=== PATIENT | female | born 1960 | race Caucasian/White ===

== ENCOUNTER 2019-07-29 11:00 | Outpatient (RCR) | payer OTHER, SELFPAY ==
--- NOTE | 2019-06-08 11:28 | PTOPEVAL ---
PHYSICAL THERAPY EVALUATION AND PLAN OF CARE Thank you for referring this patient to [facility]. Mer will be seen for skilled PT following left TKA 2x/week for 4-8weeks. Please review, sign, date and return this plan of care SYLVAIN. I agree with and certify that the following plan of care is medically necessary. Referring Physician Date Evaluation Outpatient Past Medical History Musculoskeletal History Hx Arthritis Yes Hx Fibromyalgia Yes Hx Joint Replacement Yes: R TKA Evaluation Information Problem Diagnosis left TKA Onset 06/01/2019 Subjective Information Mer is 1 week s/p left TKA Query Text:As Reported By Patient/ and reports she is doing well. Family Feels as though this knee is moving better than the last total knee on right Prior Level of Function Home Setting Home Type House,Single Level Environmental Barriers Stairs, None Pain Assessment Timing of Pain Assessment Timing of Pain Assessment Assessment Pain Scale Pain Scale Used Numeric (1 - 10) Self Report Pain Assessment Left Knee(s) Reported Pain Level 4 Pain Description Aching,Incisional Pain Frequency Acute,Intermittent Current Pain Intensity 4 Lowest Pain Intensity 2 Greatest Pain Intensity 6 Pain Aggravating Factors Prolonged Position,Weight Bearing/Standing Knee Range of Motion Left Knee Flexion Range of Motion - Active 92 Knee Extension Range of Motion - Active 0 Query Text: Hip Strength Left Hip Flexion Strength 4+ Good + Hip Extension Strength 4 Good Hip Abduction Strength 4 Good Knee Strength Left Knee Flexion Strength 4 Good Knee Extension Strength 4 Good Gait Assessment Gait Assessment Ambulation Assistive Devices Walker, Wheeled Weight Bearing Status - Left As Tolerated Weight Bearing Status - Right Full Maintains Weight Bearing Status Yes Ambulation Distance 50 and in/out of clinic Query Text:(Feet) Ambulation Speed (feet/second) 2.1 Ambulation Destination In Gym Gait Pattern Assessment Other Gait Observations limited left hip extension during gait Stair Climbing Assessment Stair Climbing Assistive Devices Railings Weight Bearing Status - Left As Tolerated Weight Bearing Status - Right Full Maintains Weight Bearing Status Yes Number of Steps Climbed (Steps) 4 Number of Repetitions (Repetitions) 1 Technique Single Steps Stair Climbing Direction Both Up and Down Stair Climbing Ability
--- NOTE | 2019-06-24 14:35 | PCPTNOTE ---
Patient called & cancelled scheduled appointment this date due to no transportation.
--- NOTE | 2019-07-06 10:08 | PCPTNOTE ---
Patient called & re-scheduled appointment this date due to self-quarantine for COVID-19. She re-scheduled for 07/29/2019.
--- NOTE | 2019-07-29 11:32 | PTOPEVAL ---
PHYSICAL THERAPY DISCHARGE REPORT Thank you for referring Mer Green to [facility]. Please review, sign, date and return this plan of care SYLVAIN. I agree with and certify that the following plan of care is medically necessary. Referring Physician Date Discharge Outpatient Past Medical History Musculoskeletal History Hx Arthritis Yes Hx Fibromyalgia Yes Hx Joint Replacement Yes: R TKA Evaluation Information Problem Diagnosis left TKA Onset 06/01/2019 Subjective Information Mer is 2months s/p left TKA. Query Text:As Reported By Patient/ Reports that the left knee is Family doing very well with some soreness in the knee after working in the yard. States that her right knee is more sore than the left. She has a plan to return to participating in recreational exercise programs. Pain Assessment Timing of Pain Assessment Timing of Pain Assessment Pre-Treatment Self Report Self Report Pain Level 0 Pain Score Pain Score 0: Self Report Lower Extremity Range of Motion Knee Range of Motion Left Knee Flexion Range of Motion - Active 109 Knee Extension Range of Motion - Active 0 Query Text: Lower Extremity Muscle Strength Testing Hip Strength Left Hip Flexion Strength 5 Normal Hip Extension Strength 4+ Good + Hip Abduction Strength 4+ Good + Knee Strength Left Knee Flexion Strength 5 Normal Knee Extension Strength 5 Normal Gait Assessment Ambulation Assistive Devices None Ambulation Distance throughout home and community Query Text:(Feet) Ambulation Ability Independent Gait Pattern Assessment Gait Pattern No Deviations/Normal Stair Climbing Assessment Stair Climbing Assistive Devices None Number of Steps Climbed (Steps) 4 Number of Repetitions (Repetitions) 3 Technique Alternating Steps Stair Climbing Direction Both Up and Down Stair Climbing Ability Independent PT Clinical Summary Mer participated in 7 visits of physical therapy. She took some time off from PT due to COVID-19 precautions but she continued her exercises as activities at home and is doing very well at this time. Her strength is WFL and her left knee ROM is WFL. I
== END 2019-08-24 08:41 | disposition home or self-care (01) ==
LOC: ANHPT 11:00
PROVIDERS: PCP Nurse Practitioner Adult Health
DX: Z47.89 Encounter for other orthopedic aftercare (principal)
CPT/HCPCS: 97110; 97161

== ENCOUNTER 2019-09-17 16:02 | Outpatient (CLI) | payer OTHER, SELFPAY ==
--- NOTE | ~2019-09-17 | XR_ITS ---
XR lumbar spine 2-3V 09/17/2019 17:03 Indication: Lumbar radiculopathy. Procedure: 3 views of the lumbar spine Comparison: 02/04/2018 Findings: There is disc narrowing and endplate degenerative change at multiple levels of the lower th oracic and upper lumbar spine extending inferiorly to the L2-3 level. There is fusion at L3-S1. There are laminectomy changes at these levels. There is lateral bone graft mass at these levels. Hardware appears to be intact. There are cholecystectomy clips. There is levoscoliosis. Impression: 1: Stable lumbar spine appearance compared with 02/04/2018. Reviewed, dictated and finalized at location A. Impression: 1: Stable lumbar spine appearance compared with 02/04/2018.
[2019-09-17 16:34] LABS: Basophils Absolute Auto 0.1 K/mm3 (0.0-0.1); Basophils Percent Auto 0.8 % (0.2-1.2); Eosinophils Absolute Auto 0.3 K/mm3 (0-0.3); Eosinophils Percent Auto 3.9 % (0-4.4); Hematocrit 38.8 % (37.0-47.0); Hemoglobin 12.1 g/dL (12.0-15.0); Immature Granulocyte Absolute 0.01 K/mm3 (0.00-0.031); Immature Granulocyte Percent A 0.2 % (0-0.5); Lymphocytes Absolute Auto 2.38 K/mm3 (0.9-3.2); Lymphocytes Percent Auto 37.2 % (18.3-44.2); Mean Corpuscular HGB Conc 31.2 g/dl (32-36); Mean Corpuscular Volume 96.3 fl (80-100); Mean Platelet Volume 9.4 fl (7.4-10.4); Monocytes Absolute Auto 0.4 K/mm3 (0.1-0.6); Monocytes Percent Auto 5.9 % (2.6-8.5); Neutrophils Absolute Auto 3.3 K/mm3 (1.3-6.7); Platelet Count Result 326 k/mm3 (150-375); Red Blood Count 4.03 M/mm3 (4.2-5.4); Red Cell Distribution Width 12.8 % (11.5-14.5); White Blood Count 6.4 K/mm3 (4.5-10.0)
[2019-09-17 16:41] LABS: Blood Urea Nitrogen 34 mg/dL (7-17); Calcium 9.3 mg/dL (8.4-10.2); Carbon Dioxide 24 mmol/L (22-30); Chloride 105 mmol/L (98-107); Cholesterol 261 mg/dL (0-200); Estimated Glomerular Filt Rate 46; Glucose 91 mg/dL (65-105); HDL Direct 51 mg/dL; Potassium 4.5 mmol/L (3.4-5.0); Sodium 138 mmol/L (137-145); Triglycerides 209 mg/dL (<150)
[2019-09-17 16:44] LABS: Hemoglobin A1C 6.2 % (<5.7)
[2019-09-17 16:52] LABS: LDL Cholesterol Direct 159 mg/dL
[2019-09-17 17:26] LABS: Iron 92 ug/dL (37-170)
[2019-09-17 17:34] LABS: Percent Iron Saturation 19 % (20-50)
[2019-09-17 17:37] LABS: Vitamin D 25 Hydroxy 23.1 ng/mL
[2019-09-17 17:49] LABS: Folic Acid 11.3 ng/mL (2.76->20); Vitamin B12 > 1000.0 pg/mL (239-931)
[2019-09-17 17:54] LABS: Creatinine Urine 327.3 mg/dL
[2019-09-17 18:00] LABS: MALB Creatinine Ratio 7.6 mg/g (0-30); Microalbumin Urine Random 24.8 mg/L (0-16.7)
== END 2019-09-17 16:03 | disposition home or self-care (01) ==
PROVIDERS: PCP Nurse Practitioner Adult Health; Visit Provider Nurse Practitioner Adult Health
DX: R73.9 Hyperglycemia, unspecified (principal); D64.9 Anemia, unspecified; M85.80 Other specified disorders of bone density and structure, unspecified site; M54.16 Radiculopathy, lumbar region
CPT/HCPCS: 36415; 72100; 80048; 80061; 82043; 82306; 82607; 82728; 82746; 83036; 83540; 83550; 85025

== ENCOUNTER 2019-10-04 17:37 | Observation (INO) | payer OTHER, SELFPAY ==
--- NOTE | ~2019-10-04 | NM_ITS ---
EXAMINATION: NM pulmonary perfusion DATE: 10/04/2019 20:39 INDICATION: Neck pain. TECHNIQUE: 5.14 mCi Tc-99m MAA was administered intravenously for perfusion images. Scintigraphic im ages of the chest were obtained. COMPARISON: Chest 2 views 10/04/2019 FINDINGS: Perfusion images show no defects. ] IMPRESSION: 1. Pulmonary embolism absent (normal or very low probability). Reviewed, dictated and finalized at location A.
--- NOTE | ~2019-10-04 | XR_ITS ---
EXAMINATION: XR chest 2V DATE: 10/04/2019 18:39 INDICATION: Weakness. Headache. TECHNIQUE: Frontal and lateral views of the chest were obtained. COMPARISON: Chest 2 views 05/14/2018, CT abdomen and pelvis 05/14/2018 FINDINGS: There is mild atelectasis at the lung bases. A calcified left lung nodule and calcified lef t hilar lymph nodes are consistent with old granulomatous disease. No pleural effusion or pneumothora x. The heart size is normal. Surgical clips in the right upper quadrant are likely from cholecystecto my. There are changes of posterior fusion procedure in lumbar spine. IMPRESSION: 1. Mild atelectasis at the lung bases. Reviewed, dictated and finalized at location A.
--- NOTE | ~2019-10-04 | US_ITS ---
EXAMINATION: US venous doppler [facility] DATE: 10/05/2019 12:57 INDICATION: Weakness and headache, elevated d-dimer TECHNIQUE: Vieyra scale images without and with compression and Doppler images of the bilateral lower e xtremity veins were obtained. COMPARISON: None FINDINGS: There is thrombosis in a right posterior tibial vein. The right common femoral vein, profunda femoral vein, femoral vein, popliteal vein, peroneal trunk, and greater saphenous vein are patent. The left common femoral vein, profunda femoral vein, femoral vein, popliteal vein, peroneal trunk, po sterior tibial veins, and greater saphenous vein are patent. IMPRESSION: 1. Deep venous thrombosis in a right posterior tibial vein. This finding was discussed with the patie nt's nurse on [facility] at 1306 hours on 10/05/2019. Reviewed, dictated and finalized at location A. IMPRESSION: 1. Deep venous thrombosis in a right posterior tibial vein. This finding was di scussed with the patient's nurse on [facility] at 1306 hours on 10/05/2019.
[2019-10-04 17:42] VITALS: BP 101/57; PULSE 83; RESP 18; TEMP 36.9; O2SAT 100
--- NOTE | 2019-10-04 17:45 | ECG_ITS ---
Measurements Intervals [place] Rate: 79 P: 59 IA: 139 QRS: 39 QRSD: 86 T: 35 QT: 367 QTc: 421 Interpretive Statements SINUS RHYTHM LOW QRS VOLTAGE IN PRECORDIAL LEADS EARLY PRECORDIAL R/S TRANSITION BORDERLINE ECG Electronically Signed On 10-05-2019 7:02:30 CDT by Ky Hayward D.O.
--- NOTE | 2019-10-04 18:07 | ED.GENADULT ---
HPI - General Adult General Chief complaint: Weakness <HAILEE Pugh Last Filed: 10/04/19 20:49> Stated complaint: weak/headache <HAILEE Pugh Last Filed: 10/04/19 20:49> Time Seen by Provider: 10/04/19 17:45 <HAILEE Pugh Last Filed: 10/04/19 20:49> Source: patient <HAILEE Pugh Last Filed: 10/04/19 20:49> Mode of arrival: ambulatory <HAILEE Pugh Last Filed: 10/04/19 20:49> Limitations: no limitations <HAILEE Pugh Last Filed: 10/04/19 20:49> History of Present Illness HPI narrative: Patient is a 59-year-old female who presents to emergency department for evaluation of weakness with headache and neck pain that been present for 3 days. Patient notes that she had been doing some painting prior to the onset of the symptoms. Patient denies any recent illness injury trauma fever chills. Patient denies similar occurrence. Patient presents per private vehicle in no distress. Patient has not taken anything for her symptoms <HAILEE Pugh Last Filed: 10/04/19 20:49> Related Data Home medications: Home Medications Medication Instructions Recorded Confirmed diltiazem HCl 120 mg PO DAILY 04/28/19 04/28/19 duloxetine [Cymbalta] 30 mg PO DAILY 04/28/19 04/28/19 duloxetine [Cymbalta] 60 mg PO DAILY 04/28/19 04/28/19 etodolac 400 mg PO DAILY 04/28/19 04/28/19 gabapentin 900 mg PO BID 04/28/19 04/28/19 lisinopril-hydrochlorothiazide 1 tablet PO BID 04/28/19 04/28/19 metformin 500 mg PO DAILY 04/28/19 04/28/19 omeprazole 40 mg PO DAILY 04/28/19 04/28/19 phentermine 37.5 mg PO DAILY 10/04/19 <HAILEE Pugh Last Filed: 10/04/19 20:49> Allergies/adverse reactions: Allergies Allergy/AdvReac Type Severity Reaction Status Date / Time adhesive tape Allergy Intermediate REDNESS Verified 10/04/19 17:53 adhesive Allergy Unknown Skin Verified 10/04/19 17:53 irritation celecoxib Allergy Unknown Dizziness Verified 10/04/19 17:53 latex Allergy Unknown Skin Verified 10/04/19 17:53 irritation <Raymond Marques PA-C - Last Filed: 10/04/19 20:49> Review of Systems Review of Systems: All systems reviewed & are unremarkable except as noted in HPI and below <Raymond Marques PA-C - Last Filed: 10/04/19 20:49> PMFSH Past Medical History Medical History: Medical History (Updated 10/04/19 @ 20:49 by Raymond Marques PA-C) Fibromyalgia <Raymond Marques PA-C - Last Filed: 10/04/19 20:49> Surgical History Surgical History: Surgical History (Updated 10/04/19 @ 18:08 by Raymond Marques PA-C) History of orthopedic surgery <Raymond Marques PA-C - Last Filed: 10/04/19 20:49> Family History Family History: Family History (Updated 03/21/18 @ 14:12 by DOCTOR UNKNOWN) Sibling Family history of mental disorder Depression Family history of arthritis Father Family history of arthritis Family history of congestive heart failure Family history of chronic obstructive pulmonary disease Family history of heart disease in male family member before age 55 Hypertension Family history of cardiovascular disease Family history of coronary artery disease Mother Family history of arthritis Hypertension Grandparent Family history of arthritis Family history of dementia Other Family history of gout Family history of lung disease <Raymond Marques PA-C - Last Filed: 10/04/19 20:49> Social History Social History: Social History Smoking status: Never smoker Second hand tobacco smoke exposure: No Smoking end date: 04/22/86 Alcohol intake: never Gender identity (if verbalized by the patient): Female <Raymond Marques PA-C - Last Filed: 10/04/19 20:49> Exam Narrative: Exam Narrative: GENERAL: Well-appearing, well-nourished, and in no acute distress. HEAD: Normocephalic, atra
[2019-10-04 18:26] LABS: Basophils Percent Auto 0.7 % (0.2-1.2); Eosinophils Absolute Auto 0.2 K/mm3 (0-0.3); Eosinophils Percent Auto 4.1 % (0-4.4); Hematocrit 33.6 % (37.0-47.0); Hemoglobin 10.9 g/dL (12.0-15.0); Immature Granulocyte Absolute 0.02 K/mm3 (0.00-0.031); Immature Granulocyte Percent A 0.4 % (0-0.5); Lymphocytes Percent Auto 37.4 % (18.3-44.2); Mean Corpuscular HGB Conc 32.4 g/dl (32-36); Mean Corpuscular Hemoglobin 30.8 pg (26-34); Mean Corpuscular Volume 94.9 fl (80-100); Mean Platelet Volume 10.3 fl (7.4-10.4); Monocytes Absolute Auto 0.4 K/mm3 (0.1-0.6); Monocytes Percent Auto 6.9 % (2.6-8.5); Neutrophils Absolute Auto 2.7 K/mm3 (1.3-6.7); Neutrophils Percent Auto 50.5 % (45.5-73.1); Platelet Count Result 274 k/mm3 (150-375); Red Blood Count 3.54 M/mm3 (4.2-5.4); Red Cell Distribution Width 13.7 % (11.5-14.5); White Blood Count 5.4 K/mm3 (4.5-10.0)
[2019-10-04] MEDS: FAMOTIDINE 20 MG/2 ML VIAL IV PUSH (18:49)
[2019-10-04] MEDS: SODIUM CHLORIDE 0.9% IV 1,000 ML 999 ML IV CONT (18:51)
[2019-10-04] MEDS: METOCLOPRAMIDE HCL INJ 10 MG/2 ML VIAL (18:52)
[2019-10-04 18:55] VITALS: BP 107/57; PULSE 73; RESP 20; O2SAT 99
[2019-10-04 19:20] LABS: Alanine Aminotransferase 22 U/L (4-35); Albumin Level 4.2 g/dL (3.5-5.1); Alkaline Phosphatase 83 U/L (38-126); Aspartate Amino Transferase 24 U/L (14-36); Bilirubin,Total 0.3 mg/dL (0.2-1.3); Blood Urea Nitrogen 66 mg/dL (7-17); Calcium 9.1 mg/dL (8.4-10.2); Carbon Dioxide 17 mmol/L (22-30); Chloride 104 mmol/L (98-107); Estimated CRCL calculation 28 ml/min; Estimated Glomerular Filt Rate 23; Glucose 107 mg/dL (65-105); Potassium 4.3 mmol/L (3.4-5.0); Sodium 132 mmol/L (137-145)
[2019-10-04 19:37] LABS: Troponin I < 0.012 ng/mL (0.000-0.034)
--- NOTE | 2019-10-04 19:38 | PC.NURSE ---
Radiology called about VQ scan
[2019-10-04 20:09] VITALS: BP 107/53; PULSE 76; RESP 18; O2SAT 98
[2019-10-04 21:18] LABS: Add Urine Microscopic? YES; Appearance Urine Clear (Clear); Bacteria Urine Trace /hpf; Bilirubin Urine Negative (Negative); Blood Urine Negative (Negative); Color Urine Straw (Yellow); Glucose Urine UA Negative (Negative); Ketones Urine Negative (Negative); Leukocyte Esterase Ur Trace LEU/UL (Negative); Mucus Urine Rare /lpf; Nitrate Urine Negative (Negative); Protein Urine Negative (Negative); RBC Urine 0-2 /hpf (0-2); Specific Grav Ur 1.012 (1.001-1.035); Squamous Epithelial Cell Urine Rare /hpf (Few); Urobilinogen Urine Negative mg/dL (<2.0); WBC Urine 0-3 /hpf
[2019-10-04 21:37] VITALS: BP 102/52; PULSE 64; RESP 18; O2SAT 100
[2019-10-04 22:14] VITALS: BMI 41.9
--- NOTE | 2019-10-04 22:18 | ADMGEN ---
This patient, Mer Green, was admitted to 3 Med Surg Room 310-01. Patient/family oriented to hospital policies and general routines including ID bracelet, bed and alarms, visiting hours, pain management, procedures, bathroom and other care routines, personal items, smoking policy, room service/diet, and visiting hours. Valuables list has been completed. Information on how to activate the Rapid Response Team has been discussed. Patient/Family are encouraged to report perceived risks to care and to ask questions if they do not understand what they are told or what they should do.
[2019-10-04] MEDS: LACTATED RINGERS 1,000 ML 125 ML IV CONT (22:53)
--- NOTE | 2019-10-05 02:28 | PM.IMHP ---
H&P: HPI History of Present Illness Chief complaint: Weakness and headache Narrative: Date and time of patient contact: 10/05/2019 at 2:40 a.m. Mer Green is a 59 year old female with a past medical history of type 2 diabetes, fibromyalgia and hypertension who presented to the ER with weakness and headache for 3 days. She states that she has felt as if she is dehydrated. She states that she had been painting her house and was sweating a lot. She had been trying to stay hydrated by drinking a lot of water. She does not drink excessive caffeine and has not drank soda in quite some time. She has also noticed decreased urine output and darker urine. Since she received IV fluids in the ER she has voided multiple times and she reports her urine is back to a normal color. She denies any hematuria or dysuria. She is aware that she had a elevated creatinine in August. Her primary care provider cut her dose of etodolac in half. The patient told nursing staff that she occasionally will still take a dose of ibuprofen in addition to her other NSAID therapy. The patient was supposed to return to her primary care physician's office in 3 months and if her creatinine had not improved at that time the plan was to refer her to Nephrology. Patient is also on metformin, SU-inhibitor and diuretic therapy. She denies any nausea, vomiting, fever, chills, recent ill contacts or decreased appetite. She has been taking phentermine since August in an attempt to lose a little bit more weight. She has been on phentermine prior to her knee surgery in May. She had initially lost 20 lb on her last attempt with phentermine. Since her phentermine has been restarted she has lost an additional 10 lb. She denies any chest pain, palpitations, or elevated blood pressure. She has been on lisinopril/ hydrochlorothiazide for quite some time. She reports that she had started taking her lisinopril hydrochlorothiazide as a total combined dose of once a day. She thought that some of her symptoms could have been due to taking the blood pressure medication all at once so she switched back to b.i.d. dosing recently. She denies having any hematochezia or melena. She has not noticed any easy bruising or bleeding. She does have chronic pain and takes 1.5 gram of Tylenol b.i.d. as well as etodolac. Review of Systems Review of Systems: Narrative: 12 systems were reviewed with pertinent positives and negatives per HPI. Except as documented in the HPI, all other systems were reviewed and are negative. [facility] Past Medical History Medical History (Updated 10/05/19 @ 08:11 by Aileen Fabian DO) Anxiety and depression Chronic kidney disease Noted since January 2019 Essential hypertension Fibromyalgia Hiatal hernia Hyperlipidemia Normal colonoscopy December 2014 Obesity Obstructive sleep apnea Moderate obstructive sleep apnea noted sleep study from June 2015 recommending CPAP of 12 but patient refuses CPAP Osteopenia Shingles 2017 Type 2 diabetes mellitus Surgical History Surgical History (Updated 10/05/19 @ 02:50 by Aileen Fabian DO) History of bilateral carpal tunnel release December 2017 History of cardiac catheterization No evidence of coronary artery disease noted on cardiac catheterization January 2017 History of section 1986 History of lumbar surgery 2003 History of total bilateral knee replacement Right knee April 2017 History of tubal ligation 1994 Status post trigger finger release Left thumb Family History Family History Sibling Depression Arthritis Bipolar disorder Father Hypertension COPD (chronic obstructive pulmonary disease) Arthritis CHF (congestive heart failure) Coronary artery disease Gout Mother Hypertension Arthritis Grandparent Dementia Social History Social History (Updated 10/05/19 @ 07:37 by Aileen Fabian DO) Smok
[2019-10-05 06:00] VITALS: BP 112/60; PULSE 72; RESP 16; TEMP 36.7; O2SAT 98
[2019-10-05 06:39] LABS: Basophils Percent Auto 0.5 % (0.2-1.2); Eosinophils Absolute Auto 0.2 K/mm3 (0-0.3); Eosinophils Percent Auto 5.8 % (0-4.4); Hematocrit 32.7 % (37.0-47.0); Hemoglobin 10.3 g/dL (12.0-15.0); Immature Granulocyte Absolute 0.01 K/mm3 (0.00-0.031); Immature Granulocyte Percent A 0.3 % (0-0.5); Lymphocytes Absolute Auto 1.88 K/mm3 (0.9-3.2); Lymphocytes Percent Auto 49.5 % (18.3-44.2); Mean Corpuscular HGB Conc 31.5 g/dl (32-36); Mean Corpuscular Hemoglobin 30.4 pg (26-34); Mean Corpuscular Volume 96.5 fl (80-100); Mean Platelet Volume 9.8 fl (7.4-10.4); Monocytes Absolute Auto 0.3 K/mm3 (0.1-0.6); Monocytes Percent Auto 7.6 % (2.6-8.5); Neutrophils Absolute Auto 1.4 K/mm3 (1.3-6.7); Neutrophils Percent Auto 36.3 % (45.5-73.1); Platelet Count Result 222 k/mm3 (150-375); Red Blood Count 3.39 M/mm3 (4.2-5.4); Red Cell Distribution Width 13.5 % (11.5-14.5); White Blood Count 3.8 K/mm3 (4.5-10.0)
[2019-10-05] MEDS: LACTATED RINGERS 1,000 ML 125 ML IV CONT ×2 (06:55→17:57)
[2019-10-05 07:09] LABS: Blood Urea Nitrogen 53 mg/dL (7-17); Calcium 9.3 mg/dL (8.4-10.2); Carbon Dioxide 21 mmol/L (22-30); Chloride 108 mmol/L (98-107); Estimated CRCL calculation 44 ml/min; Estimated Glomerular Filt Rate 38; Glucose 94 mg/dL (65-105); Potassium 4.5 mmol/L (3.4-5.0); Sodium 138 mmol/L (137-145)
[2019-10-05 07:24] LABS: Transferrin 311 mg/dL (206-381)
[2019-10-05 07:25] LABS: Iron 69 ug/dL (37-170)
[2019-10-05 07:36] LABS: Percent Iron Saturation 17 % (20-50)
[2019-10-05] MEDS: DULOXETINE 60 MG CAPSULE.DR PO (09:25)
[2019-10-05] MEDS: DULOXETINE HCL 30 MG CAPSULE.DR PO (09:25)
[2019-10-05] MEDS: GABAPENTIN 300 MG CAPSULE 900 MG PO ×2 (09:26→21:03)
[2019-10-05] MEDS: FAMOTIDINE 20 MG/2 ML VIAL IV PUSH ×2 (09:26→21:03)
[2019-10-05 09:32] LABS: Glucose Point of Care 115 (65-105)
[2019-10-05 12:58] LABS: Glucose Point of Care 92 (65-105)
[2019-10-05 13:48] LABS: IFOB Positive Control Positive; Immunochemical Fecal Occult Bl Negative (N)
--- NOTE | 2019-10-05 13:49 | PM.CNNEP ---
Assessment and Plan Assessment and plan (1) Acute kidney injury: Code(s): N17.9 - Acute kidney failure, unspecified Status: Acute Assessment and Plan: The patient has acute kidney injury. Her baseline creatinine runs anywhere from 0.8-1.2. Her creatinine on admission was 2.2. Most likely this is a combination of being dehydrated and also the etodolac in the presence of the dehydration. We discussed that when she is dehydrated the NSAID will cause the kidneys to exaggerate the response of the creatinine to the dehydration. She is now off this medication and she is getting IV fluids and her creatinine is better. When she is back down to her new baseline will decide whether she needs more evaluation for her kidneys are not. In the meantime will get urine electrolytes eosinophils and repeat the renal panel in the morning. She will continue her IV fluids. (2) Diabetes mellitus: Code(s): E11.9 - Type 2 diabetes mellitus without complications Status: Acute Assessment and Plan: On Accu-Cheks and sliding-scale insulin (3) Anemia: Code(s): D64.9 - Anemia, unspecified Status: Acute Assessment and Plan: Mildly low hemoglobin. History of Present Illness Reason for Consult Consult date: 10/05/19 Chief Complaint Chief complaint: Weakness and headache History of Present Illness Narrative: Mer is a very pleasant 59-year-old lady has hypertension, chronic arthritis, pre diabetes on metformin, obesity. Patient was well until a few days before admission when she started becoming weak. She thought it would just past so she did not do anything about it. However by the day of admission she had become so weak she could not stand anymore so she came into the emergency room. She had no shortness of breath or chest pain. Upon admission to the ER she was evaluated and found to be dehydrated. Her blood work showed elevated BUN and creatinine so renal consultation was requested. She says that about a year ago her primary care doctor checked her kidney studies and there was ?some concern ?so her a total lack was reduced from 2 tablets per day to 1 tablet per day. She did not hear anything more about kidneys after that until this admission. She denies any bloody urine, foamy urine, kidney stones, or bladder infections. Review of Systems Constitutional: Constitutional: Reports no additional constitutional complaints Eyes: Eyes: Reports no additional eye complaints ENT: Reports system reviewed and no additional complaints, except as documented Cardiovascular: Cardiovascular: Reports no additional cardiovascular complaints Respiratory: Respiratory: Reports no additional respiratory complaints Gastrointestinal: Gastrointestinal: Reports no additional gastrointestinal complaints Genitourinary: Genitourinary: Reports no additional female genitourinary complaints Musculoskeletal: Musculoskeletal: Reports no additional musculoskeletal complaints Integumentary/Breasts: Skin/Breast: Reports system reviewed and no additional complaints, except as docu Neurologic: Reports system reviewed and no additional complaints, except as documented Psychiatric: Psychiatric: Reports no additional psychiatric complaints Endocrine: Endocrine: Reports no additional endocrine complaints PMFSH Past Medical History Medical History Anxiety and depression Chronic kidney disease Noted since January 2019 Essential hypertension Fibromyalgia Hiatal hernia Hyperlipidemia Normal colonoscopy December 2014 Obesity Obstructive sleep apnea Moderate obstructive sleep apnea noted sleep study from June 2015 recommending CPAP of 12 but patient refuses CPAP Osteopenia Shingles 2017 Type 2 diabetes mellitus Surgical History Surgical History History of bilateral carpal tunnel release Sep
[2019-10-05 14:00] VITALS: BP 103/66; PULSE 78; RESP 18; TEMP 36.5; O2SAT 98
--- NOTE | 2019-10-05 17:41 | PM.IMPN ---
Progress Note: A&P Assessment and Plan (1) Acute kidney injury: Code(s): N17.9 - Acute kidney failure, unspecified Status: Acute Assessment and Plan: Acute kidney injury complicating chronic kidney disease. The patient's metformin, lisinopril, hydrochlorothiazide, and NSAID therapy have been held. Dr. Dawson Rees has been consulted. Repeat BMP has been ordered. 10/05/19 17:41 Patient is a 59-year-old female with past medical history of diabetes hypertension presented emergency department with a complaint generalized weakness with difficulty ambulating ingested not feel right patient states he had been painting her house thought that see was hydrating herself however upon arrival patient is found to have acute kidney injury most likely secondary to dehydration patient is being gently hydrated and we are holding patient's metformin and lisinopril, is also found to elevated D-dimer most likely unprovoked as patient had been active painting her house to further evaluate patient had a CTA of the chest which is negative for pulmonary emboli however lower extremity Doppler shows patient has a DVT we have started the patient on Eliquis once patient clinically stable will need consult petroleum refining firer for further evaluation, currently denies any chest pain shortness of breath palpitation fever or chill, will continue to monitor patient kidney function patient is seen by licensed embalmer and further recommendation to follow (2) Anemia: Code(s): D64.9 - Anemia, unspecified Status: Acute Assessment and Plan: Likely due to anemia of chronic disease. Iron studies have been ordered to confirm this. Repeat CBC has been ordered for this a.m.. (3) Diabetes mellitus: Code(s): E11.9 - Type 2 diabetes mellitus without complications Status: Acute Assessment and Plan: Patient is euglycemic. Will stop the patient's metformin for now. Continue consistent carbohydrate diet. Subjective Date/time seen: 10/05/19 17:41 Patient is a 59-year-old female with past medical history of diabetes hypertension presented emergency department with a complaint generalized weakness with difficulty ambulating ingested not feel right patient states he had been painting her house thought that see was hydrating herself however upon arrival patient is found to have acute kidney injury most likely secondary to dehydration patient is being gently hydrated and we are holding patient's metformin and lisinopril, is also found to elevated D-dimer most likely unprovoked as patient had been active painting her house to further evaluate patient had a CTA of the chest which is negative for pulmonary emboli however lower extremity Doppler shows patient has a DVT we have started the patient on Eliquis once patient clinically stable will need consult petroleum refining firer for further evaluation, currently denies any chest pain shortness of breath palpitation fever or chill, will continue to monitor patient kidney function patient is seen by licensed embalmer and further recommendation to follow Review of Systems Review of Systems: All systems reviewed & are unremarkable except as noted in HPI and below Exam Const: General: comfortable and no acute distress HENMT: General nose exam: Normal nares present Eyes: General: appearance normal, both eyes and all related structures Sclera: sclerae normal Neck: Neck: supple Resp: Effort & Inspection: normal respiratory effort Auscultation: clear to auscultation bilaterally Cardio: Rate: regular rate Rhythm: regular rhythm GI: Auscultation: normal bowel sounds Skin: General skin exam: normal color Neuro: Speech: normal speech Sensory Exam: normal sensation Extrem: General: normal to inspection Psych: Affect: Anxious affect present Objective Data Vital Signs Vital Signs: Vital Signs - 24 hr 10/04/19 17:42 10/04/19 18:55 10/04/19 20:09 Temperature 98.5 F Pulse Rate 83 73 76 Respir
[2019-10-05] MEDS: ACETAMINOPHEN 325 MG TABLET 650 MG PO (17:56)
[2019-10-05 18:20] LABS: Creatinine Urine 53.4 mg/dL; Total Protein Urine Random 12 mg/dL
[2019-10-05 18:22] LABS: Sodium Urine Random 117 meq/L
[2019-10-05 18:31] LABS: Glucose Point of Care 101 (65-105)
[2019-10-05] MEDS: APIXABAN 5 MG TABLET 10 MG PO (21:03)
[2019-10-05 21:30] LABS: Glucose Point of Care 93 (65-105)
[2019-10-05 22:00] VITALS: BP 109/65; PULSE 75; RESP 20; TEMP 36.8; O2SAT 98
[2019-10-06] MEDS: LACTATED RINGERS 1,000 ML 125 ML IV CONT (05:17)
[2019-10-06 06:00] VITALS: BP 114/77; PULSE 73; RESP 16; TEMP 36.4; O2SAT 98
[2019-10-06 06:12] LABS: Hematocrit 31.6 % (37.0-47.0); Mean Corpuscular HGB Conc 31.6 g/dl (32-36); Mean Corpuscular Hemoglobin 30.1 pg (26-34); Mean Corpuscular Volume 95.2 fl (80-100); Mean Platelet Volume 9.5 fl (7.4-10.4); Platelet Count Result 212 k/mm3 (150-375); Red Blood Count 3.32 M/mm3 (4.2-5.4); Red Cell Distribution Width 13.5 % (11.5-14.5)
[2019-10-06 06:28] LABS: Albumin Level 3.8 g/dL (3.5-5.1); Blood Urea Nitrogen 29 mg/dL (7-17); Carbon Dioxide 26 mmol/L (22-30); Chloride 107 mmol/L (98-107); Estimated CRCL calculation 75 ml/min; Estimated Glomerular Filt Rate > 60; Glucose 98 mg/dL (65-105); Phosphorus 3.7 mg/dL (2.5-4.5); Potassium 4.5 mmol/L (3.4-5.0); Sodium 137 mmol/L (137-145)
[2019-10-06 06:48] LABS: Iron 66 ug/dL (37-170)
[2019-10-06 06:57] LABS: Percent Iron Saturation 17 % (20-50)
--- NOTE | 2019-10-06 07:27 | PM.PNNEP ---
Progress Note: A&P Assessment and Plan (1) Acute kidney injury: Code(s): N17.9 - Acute kidney failure, unspecified Status: Acute Assessment and Plan: The patient has acute kidney injury. Her baseline creatinine runs anywhere from 0.8-1.2. Her creatinine on admission was 2.2. After receiving fluids and being off the etodolac, her creatinine has come down to normal. She ate well yesterday and is hungry for breakfast today. I think we can stop the IV fluids. (2) Diabetes mellitus: Code(s): E11.9 - Type 2 diabetes mellitus without complications Status: Acute Assessment and Plan: On Accu-Cheks and sliding-scale insulin (3) Anemia: Code(s): D64.9 - Anemia, unspecified Status: Acute Assessment and Plan: Mildly low hemoglobin. Subjective Date/time seen: 10/06/19 07:27 Interval history: Patient is alert. She feels much better. She is making lots of urine. Review of Systems Cardiovascular: Cardiovascular: Reports no additional cardiovascular complaints Respiratory: Respiratory: Reports no additional respiratory complaints Gastrointestinal: Gastrointestinal: Reports no additional gastrointestinal complaints Genitourinary: Genitourinary: Reports no additional female genitourinary complaints Exam Narrative: Exam Narrative: WDWN in NAD skin no rash head ncat lungs clear cor reg no rub abd BS+ nontender and soft ext no edema. Objective Data Vital Signs Vital Signs: Vital Signs - 24 hr 10/05/19 14:00 10/05/19 22:00 10/06/19 06:00 Temperature 36.5 C 36.8 C 36.4 C L Pulse Rate 78 75 73 Respiratory Rate 18 20 16 Blood Pressure 103/66 109/65 114/77 Pulse Oximetry 98 98 98 Intake/Output Intake/Output: Intake & Output 10/03/19 10/04/19 10/05/19 10/06/19 23:59 23:59 23:59 23:59 Intake Total 1100 3730 1000 Output Total 2700 Balance 1100 1030 1000 Meds/Results Medications: Active Medications Generic Name Dose Route Start Last Admin Trade Name Freq PRN Reason Stop Dose Admin Acetaminophen 650 mg 10/05/19 17:36 10/05/19 17:56 Tylenol Tablet PO 650 mg Q6H PRN Administration Mild Pain (1-3) or Fever Apixaban 10 mg 10/05/19 21:00 10/05/19 21:03 Eliquis PO 10 mg Q12HR TOMMIE Administration Dextrose 12.5 gm 10/04/19 21:58 Dextrose 50% Syringe IV PUSH PRN PRN Hypoglycemia Protocol Diltiazem HCl 120 mg 10/05/19 09:00 10/05/19 09:40 Cardizem Cd PO 11/04/19 09:01 120 mg DAILY TOMMIE Administration Duloxetine HCl 30 mg 10/05/19 09:00 10/05/19 09:25 Cymbalta PO 30 mg DAILY TOMMIE Administration Duloxetine HCl 60 mg 10/05/19 09:00 10/05/19 09:25 Cymbalta PO 60 mg DAILY TOMMIE Administration Famotidine 20 mg 10/05/19 09:00 10/05/19 21:03 Pepcid Iv IV PUSH 20 mg Q12HR TOMMIE Administration Gabapentin 900 mg 10/05/19 09:00 10/05/19 21:03 Neurontin PO 900 mg Q12HR TOMMIE Administration Glucagon 1 mg 10/04/19 21:58 Glucagon For Inj IM PRN PRN Hypoglycemia Protocol Glucose 15 gm 10/04/19 21:58 Glutose 15 PO PRN PRN Hypoglycemia Protocol Lactated Ringer's 1,000 mls @ 125 mls/hr 10/04/19 20:55 10/06/19 05:17 Lr - Lactated Ringers Iv IV CONT 125 mls/hr .Q8H TOMMIE Administration Dextrose 1,000 mls @ 100 mls/hr 10/04/19 21:58 Dextrose 5% 1,000 Ml IVPB PRN PRN Hypoglycemia Protocol Insulin Aspart 2 - 5 units 10/05/19 08:00 10/05/19 17:55 Novolog SUB-Q Not Given TIDWM TOMMIE Protocol Ondansetron HCl 4 mg 10/04/19 20:51 Zofran Inj IV PUSH Q4H PRN Nausea Radiology Results: ITS Impressions Chest X-Ray 10/04/19 18:42 IMPRESSION: 1. Mild atelectasis at the lung bases. Pulmonary Perfusion Imaging 10/04/19 20:41 IMPRESSION: 1. Pulmonary embolism absent (normal or very low probability). Venous Doppler Study 10/05/19 13:03 IMPRE
[2019-10-06 08:00] VITALS: PULSE 73; RESP 16; O2SAT 98
[2019-10-06] MEDS: DULOXETINE 60 MG CAPSULE.DR PO (08:34)
[2019-10-06] MEDS: GABAPENTIN 300 MG CAPSULE 900 MG PO (08:34)
[2019-10-06] MEDS: DULOXETINE HCL 30 MG CAPSULE.DR PO (08:34)
[2019-10-06] MEDS: APIXABAN 5 MG TABLET 10 MG PO (08:35)
[2019-10-06] MEDS: FAMOTIDINE 20 MG/2 ML VIAL IV PUSH (08:37)
[2019-10-06 09:11] LABS: Glucose Point of Care 95 (65-105)
[2019-10-06 11:38] LABS: Glucose Point of Care 76 (65-105)
[2019-10-06 14:00] VITALS: BP 116/69; PULSE 76; RESP 18; TEMP 36.6; O2SAT 97
--- NOTE | 2019-10-06 14:20 | PM.DS ---
DS: Admitting Diagnosis Admitting Diagnosis Admitting Diagnosis: Acute kidney failure, unspecified DS: Discharge Diagnosis Discharge Diagnosis (1) Acute kidney injury: Code(s): N17.9 - Acute kidney failure, unspecified Status: Acute Assessment and Plan: Acute kidney injury complicating chronic kidney disease. The patient's metformin, lisinopril, hydrochlorothiazide, and NSAID therapy have been held. Dr. Dawson Rees has been consulted. Repeat BMP has been ordered. 10/05/19 17:41 Patient is a 59-year-old female with past medical history of diabetes hypertension presented emergency department with a complaint generalized weakness with difficulty ambulating ingested not feel right patient states he had been painting her house thought that see was hydrating herself however upon arrival patient is found to have acute kidney injury most likely secondary to dehydration patient is being gently hydrated and we are holding patient's metformin and lisinopril, is also found to elevated D-dimer most likely unprovoked as patient had been active painting her house to further evaluate patient had a CTA of the chest which is negative for pulmonary emboli however lower extremity Doppler shows patient has a DVT we have started the patient on Eliquis once patient clinically stable will need consult supervisor histology for further evaluation, currently denies any chest pain shortness of breath palpitation fever or chill, will continue to monitor patient kidney function patient is seen by information services consultant and further recommendation to follow (2) Anemia: Code(s): D64.9 - Anemia, unspecified Status: Acute Assessment and Plan: Likely due to anemia of chronic disease. Iron studies have been ordered to confirm this. Repeat CBC has been ordered for this a.m.. (3) Diabetes mellitus: Code(s): E11.9 - Type 2 diabetes mellitus without complications Status: Acute Assessment and Plan: Patient is euglycemic. Will stop the patient's metformin for now. Continue consistent carbohydrate diet. DS: Summary Hospital Course Reason for hospitalization: Mer Green is a 59 year old female with a past medical history of type 2 diabetes, fibromyalgia and hypertension who presented to the ER with weakness and headache for 3 days. She states that she has felt as if she is dehydrated. She states that she had been painting her house and was sweating a lot. She had been trying to stay hydrated by drinking a lot of water. She does not drink excessive caffeine and has not drank soda in quite some time. She has also noticed decreased urine output and darker urine. Since she received IV fluids in the ER she has voided multiple times and she reports her urine is back to a normal color. She denies any hematuria or dysuria. She is aware that she had a elevated creatinine in August. Her primary care provider cut her dose of etodolac in half. The patient told nursing staff that she occasionally will still take a dose of ibuprofen in addition to her other NSAID therapy. The patient was supposed to return to her primary care physician's office in 3 months and if her creatinine had not improved at that time the plan was to refer her to Nephrology. Patient is also on metformin, SU-inhibitor and diuretic therapy. She denies any nausea, vomiting, fever, chills, recent ill contacts or decreased appetite. She has been taking phentermine since August in an attempt to lose a little bit more weight. She has been on phentermine prior to her knee surgery in May. She had initially lost 20 lb on her last attempt with phentermine. Since her phentermine has been restarted she has lost an additional 10 lb. She denies any chest pain, palpitations, or elevated blood pressure. She has been on lisinopril/ hydrochlorothiazide for quite some time. She reports that she had started taking her lisinopril hydrochlorothiazide as a total combined dose of once a day
== END 2019-10-06 15:00 | disposition home or self-care (01) ==
LOC: ANHED 21:08 → ANH3MEDSUR 10-05 02:33
PROVIDERS: Emergency Medicine Emergency Medical Services; Internal Medicine Nephrology; Admitting Provider Internal Medicine; Emergency Provider Emergency Medicine; PCP Nurse Practitioner Adult Health; Visit Provider Family Medicine
DX: N17.9 Acute kidney failure, unspecified (principal); E11.22 Type 2 diabetes mellitus with diabetic chronic kidney disease; I12.9 Hypertensive chronic kidney disease with stage 1 through stage 4 chronic kidney disease, or unspecified chronic kidney disease; N18.9 Chronic kidney disease, unspecified; D63.1 Anemia in chronic kidney disease; I82.441 Acute embolism and thrombosis of right tibial vein; M79.7 Fibromyalgia; E78.5 Hyperlipidemia, unspecified; G47.33 Obstructive sleep apnea (adult) (pediatric); E66.9 Obesity, unspecified; Z68.41 Body mass index [BMI] 40.0-44.9, adult; Z79.84 Long term (current) use of oral hypoglycemic drugs; Z79.899 Other long term (current) drug therapy
CPT/HCPCS: 36415; 71046; 78580; 80048; 80053; 80069; 81001; 82274; 82570; 82728; 83540; 83550; 84156; 84300; 84466; 84484; 85025; 85027; 85380; 85999; 93005; 93970; 96361; 96365; 96374; 96375; 96376; 99285; A9270; A9540; G0378; G0379; J0131; J1200; J2765; J7030; J7120

== ENCOUNTER 2019-11-21 16:31 | Emergency (ER) | payer OTHER, SELFPAY ==
[2019-11-21 16:43] VITALS: BP 130/90; PULSE 98; RESP 18; TEMP 36.6; O2SAT 100
== END 2019-11-21 16:57 | disposition left against medical advice (07) ==
LOC: EXPBETH 16:41
PROVIDERS: Emergency Provider Nurse Practitioner; PCP Nurse Practitioner Adult Health
DX: Z53.21 Procedure and treatment not carried out due to patient leaving prior to being seen by health care provider (principal)
CPT/HCPCS: 99199

== ENCOUNTER 2020-01-19 15:55 | Outpatient (CLI) | payer OTHER, SELFPAY ==
--- NOTE | ~2020-01-19 | MM_ITS ---
EXAMINATION: MM screening [facility] BI w mario HISTORY: Screening mammogram TECHNIQUE: Craniocaudal and mediolateral oblique 3-D tomosynthesis images were obtained and synthetic 2-D images were generated. CAD analysis was submitted and interpreted. COMPARISON: 07/23/2018, 08/10/1715, 01/21/2014 BREAST PARENCHYMAL COMPOSITION: The breasts are almost entirely fatty. FINDINGS: There is no evidence of suspicious mass, calcification, or architectural distortion to sugg est malignancy in either breast. There has been no suspicious interval change. IMPRESSION: 1. No mammographic evidence of malignancy. 2. Recommend routine screening mammography in one year. BI-RADS Category 1: Negative Reviewed, dictated and finalized at location A.
== END 2020-01-19 15:56 | disposition home or self-care (01) ==
PROVIDERS: PCP Nurse Practitioner Adult Health; Visit Provider Nurse Practitioner
DX: Z12.31 Encounter for screening mammogram for malignant neoplasm of breast (principal)
CPT/HCPCS: 77063; 77067

== ENCOUNTER 2020-02-25 11:09 | Outpatient (CLI) | payer OTHER, SELFPAY ==
--- NOTE | ~2020-02-25 | XR_ITS ---
EXAMINATION: XR lg joint inject/asp w image DATE: 02/25/2020 12:04 INDICATION: Severe left glenohumeral osteoarthritis with left shoulder pain. TECHNIQUE: A time-out was performed to verify the patient's name, date of , and procedure to b e performed. The procedure including the risks, benefits, and alternatives was discussed with the pat ient. Risks discussed included bleeding and infection. The patient understood the risks and agreed to proceed. The skin overlying the left glenohumeral joint was prepped and draped in usual sterile fas hion. Anesthetic was administered with 1% lidocaine subcutaneously. A 22 G needle was advanced unde r fluoroscopic guidance into the joint. Injection of 0.6 mL of Omnipaque 240 confirmed intra-articul ar position of the needle. Subsequently, injectate consisting of 5 mm of a 4:1 mixture of 1% lidocai ne: 80 mg/mL Depo-Medrol for a total dose of 80 mg Depo-Medrol was instilled. Washout of contrast was seen confirming intra-articular administration. The needle was removed and the entry site was cleane d and dressed. There were no immediate complications. Fluoroscopy exposure time was 0.1 minutes. The total number of images was 1. FINDINGS: Real-time fluoroscopy demonstrates the needle in the left glenohumeral joint. Patient's tootie n prior to procedure:09/29. Patient's pain following the procedure: 07/30. IMPRESSION: 1. Left glenohumeral joint injection of local anesthetic and steroid with decrease in the patient's p resenting pain. Reviewed, dictated and finalized at location A. SUPERVISOR IMPRESSION: 1. Left glenohumeral joint injection of local anesthetic and steroid with decre ase in the patient's presenting pain.
== END 2020-02-25 11:10 | disposition home or self-care (01) ==
PROVIDERS: PCP Nurse Practitioner Adult Health; Visit Provider Orthopaedic Surgery
DX: M19.012 Primary osteoarthritis, left shoulder (principal)
CPT/HCPCS: 20610; 77002; J1040; Q9966

== ENCOUNTER 2020-05-10 13:00 | Outpatient (CLI) | payer OTHER, SELFPAY ==
--- NOTE | ~2020-05-10 | DEXA_ITS ---
Bone Density Report Name: Mer Green Age: 60 Sex: Female Ethnicity: White Date of : 1960 Indication: postmenopausal; height loss; inflammatory bowel disease; Referring Provider: JAHAIRA WILLS Study: Bone densitometry was performed. Exam Date: May 10, 2020 Accession number: [id number] Bone Density: Region BMD T-score Z-score Classification Femoral Neck (Left) 0.881 0.3 1.6 Normal Total Hip (Left) 1.065 1.0 2.0 Normal Total Hip Bilateral Avg 1.126 1.5 2.5 Normal Femoral Neck (Right) 0.969 1.1 2.4 Normal Total Hip (Right) 1.186 2.0 3.0 Normal World Health Organization criteria for BMD impression classify patients as: Normal (T-score at or above -1.0), Osteopenia (T-score between -1.0 and -2.5), or Osteoporosis (T-score at or below -2.5). 10-year Fracture Risk: FRAX not reported because: All T-scores for Spine Total, Hip Total, Femoral Neck at or above -1.0 Previous Exams: Region Exam Age BMD T-score BMD Change BMD Change Date g/cm2 vs Baseline vs Previous Total Hip(Left) 05/10/2020 60 1.065 1.0 -0.030(-2.7%)# -0.037(-3.3%)* 06/06/2016 56 1.102 1.3 0.007(0.6%)# 0.007(0.6%)# 01/27/2013 52 1.095 1.3 Total Hip(Right) 05/10/2020 60 1.186 2.0 -0.029(-2.4%)# -0.044(-3.6%)* 06/06/2016 56 1.230 2.4 0.015(1.2%)# 0.015(1.2%)# 01/27/2013 52 1.215 2.2 *Denotes significance at 95% confidence level, LSC for Total Hip = 0.027 g/cm2 Clinical Information Provided by Patient: Has the following medical conditions: Inflammatory bowel diseases Patient maximum height was 64 Menopause Age: 40 Onset of menses at age 13 Number of children 1 Impression: The patient has normal bone mass. The BMD for the Total Hip(Left) decreased, changing by -3.3% since the last DXA exam. The BMD for the Total Hip(Right) decreased, changing by -3.6% since the last DXA exam. Discussion: BONE DENSITY IS ABOVE THE MINIMUM DESIRABLE LEVEL AT ALL SKELETAL SITES TESTED. This patient?s bone mineral density is above the minimum desirable level (T-score -1.0 or better) at all sites measured. The patient should follow a healthful lifestyle (good nutrition with adequate calcium and vitamin D, and appropriate weight-bearing exercise). Follow-Up: Consider repeating this study in 3 to 4 years to reassess this patient's status, or sooner if there is some new clinical indication. Reported by: DALLAS on 05/10/2020 1:28:00 PM. Reviewed, dictate
== END 2020-05-10 13:01 | disposition home or self-care (01) ==
PROVIDERS: PCP Nurse Practitioner Adult Health; Visit Provider Obstetrics & Gynecology Gynecology
DX: Z13.820 Encounter for screening for osteoporosis (principal)
CPT/HCPCS: 77080

== ENCOUNTER 2020-06-08 12:30 | Outpatient (RCR) | payer OTHER, SELFPAY ==
--- NOTE | 2020-05-02 11:48 | PTOPEVAL ---
PHYSICAL THERAPY EVALUATION Thank you for referring Mer Green to [facility].? Mer was evaluated for the dx of cervical pain/left arm radiculopathy. The patient is scheduled to be seen for therapy?2 x/week for 4 weeks. Please review, sign, date and return this plan of care SYLVAIN. I agree with and certify that the following plan of care is medically necessary. Referring Physician Date Attending Provider: Chico Mcnally MD Referring Provider: Chico Mcnally MD *PT Outpatient Evaluation Start: 05/02/20 08:28 Freq: Status: Active Protocol: Document 05/02/20 10:37 MLV (Rec: 05/02/20 11:27 [facility] [id number]) Assessment Status Evaluation Evaluation Information Problem Diagnosis neck pain with left arm radiculopathy Onset September 2019 Cause none Additional Evaluation Detail The patient states she has a hx of 3 bulging discs at her neck and her shoulder is bone on bone. The patient is having pain at her left arm. The patient has extensive arthritis and goes to the pool for exercising. Patient has pain with driving, dressing and is having more trouble sleeping due to new increase in pain. Patient reports arm pain is present about 50-70% of day, daily. 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); patient does housework, minimal cooking, shops Diagnostic Tests X-Rays For This Problem Yes: l shoulder bone on bone MRI For This Problem Yes: MRI 2017- 3 bulging cervical discs Prior Level of Function Activity Level (Last 3 Months) Occupation retired Hand Dominance Right Activity of Daily Living Ability Independent Indoor/Home Mobility Independent Community Mobility Independent Stairs Ability Independent Functional Cognition (Planning, Shopping Independent , Taking Medications) Cooking Yes Cleaning Yes Laundry Yes Shopping Yes Driving Yes Medications Home Meds (Include: OTC, RX, Vitamins, medrol dose pack finished 2 Herbals, Dose, Route,and Frequency) days ago-got some
--- NOTE | 2020-05-25 15:04 | PCPTNOTE ---
Patient called & cancelled scheduled appointment this date due to infected tooth.
--- NOTE | 2020-05-30 13:45 | PCPTNOTE ---
Patient called & cancelled scheduled appointment this date due to a toothache. Patient rescheduled her appt.
--- NOTE | 2020-06-08 13:16 | PTOPEVAL ---
PHYSICAL THERAPY DISCHARGE Thank you for referring Mer Green to [facility].? Sonali has been seen 8 visits for the dx of cervical pain/radiculopathy. The patient has met most goals and peaked with therapy-D/C PT. Please review, sign, date and return this plan of care. I agree with and certify the following plan of care. Referring Physician Date Attending Provider: Chico Mcnally MD *PT Outpatient Discharge Start: 05/02/20 08:28 Freq: Status: Discharge Protocol: Document 06/08/20 12:37 MLV (Rec: 06/08/20 13:16 MLV [id number]) Assessment Status Discharge Evaluation Information Problem Additional Evaluation Detail The patient is still going to the pool for exercise regularly. The patient is using heat and exercises at home for relief of symptoms. Patient feels her pain is less often and the higher pain is much less frequent. Patient plans to see MD to follow up for possible care through a neuro-MD. Pain Assessment Timing of Pain Assessment Timing of Pain Assessment Assessment Pain Scale Pain Scale Used Numeric (1 - 10) Self Report Pain Assessment Neck Reported Pain Level 3 Greatest Pain Intensity 3 Right Arm(s) Reported Pain Level 2 Greatest Pain Intensity 7 Additional Pain Comments 50% less frequent of higher pain Pain Score Pain Score 3,2: Self Report Interventions Used Interventions Used By Clinicians Education,Exercise,Heat,Manual Therapy Techniques Pain Relief Interventions Used By Exercise,Heat,Position Change Patient Cervical and Lumbar ROM Cervical ROM Cervical Flexion (0-60) 67 Query Text:Active in Degrees Cervical Extension (0-70) 48 Query Text:Active in Degrees Cervical Lateral Flexion Right (0-50) 40 Query Text:Active in Degrees Cervical Lateral Flexion Left (0-50) 46 Query Text:Active in Degrees Cervical Rotation Right (0-90) 63 Query Text:Active in Degrees Cervical Rotation Left (0-90) 65 Query Text:Active in Degrees Cervical ROM Comments all motions improved and motion is fluid and unguarded Palpation Assessment Palpation cervical soft tissue and muscle tightnesses decreased approx. 65% overall with notable decrease in dowager's
== END 2020-06-09 07:35 | disposition home or self-care (01) ==
LOC: ANHPT 12:30
PROVIDERS: PCP Nurse Practitioner Adult Health; Referring Provider Orthopaedic Surgery; Visit Provider Orthopaedic Surgery
DX: M54.2 Cervicalgia (principal)
CPT/HCPCS: 97012; 97032; 97110; 97140; 97162

== ENCOUNTER 2021-05-10 13:49 | Outpatient (CLI) | payer MEDICARE, MEDICAID, SELFPAY ==
--- NOTE | ~2021-05-10 | MM_ITS ---
EXAMINATION: MM screening [facility] BI w mario HISTORY: Screening TECHNIQUE: Craniocaudal and mediolateral oblique 3-D tomosynthesis images were obtained and synthetic 2-D images were generated. CAD analysis was submitted and interpreted. COMPARISON: Comparison to multiple prior studies sequentially, with oldest reviewed study dated 08/29. BREAST PARENCHYMAL COMPOSITION: There are scattered areas of fibroglandular density. FINDINGS: There is no evidence of suspicious mass, calcification, or architectural distortion to sugg est malignancy in either breast. There has been no suspicious interval change. IMPRESSION: 1. No mammographic evidence of malignancy. 2. Recommend routine screening mammography in one year. BI-RADS Category 1: Negative Reviewed, dictated and finalized at location A. R MILL MANAGER
== END 2021-05-10 13:50 | disposition home or self-care (01) ==
LOC: ANHIMG 13:54
PROVIDERS: PCP Nurse Practitioner Adult Health; Visit Provider Nurse Practitioner
DX: Z12.31 Encounter for screening mammogram for malignant neoplasm of breast (principal)
CPT/HCPCS: 77063; 77067

== ENCOUNTER 2021-09-29 15:50 | Emergency (ER) | payer MEDICARE, MEDICAID, SELFPAY ==
[2021-09-29 15:56] VITALS: BP 132/87; PULSE 92; RESP 20; TEMP 36.6; O2SAT 100
--- NOTE | 2021-09-29 16:07 | ED.GENADULT ---
HPI - General Adult General Chief complaint: Nausea/Vomiting/Diarrhea Stated complaint: headache diahrrea fatigued Time Seen by Provider: 09/29/21 16:05 Source: patient and RN notes reviewed Mode of arrival: ambulatory Limitations: no limitations History of Present Illness HPI narrative: 61-year-old female presented for complaint of 5 days. She states she has a history of IBS?D, but states this does not feel similar. She had been having multiple bowel movements daily with associated abdominal cramping. She denies nausea, vomiting, hematochezia, melena, fevers or chills. She denies sick contacts. She is not boosted for COVID. She is vaccinated for flu. She has not taken anything for her symptoms. Related Data Home Medications Medication Instructions Recorded Confirmed duloxetine 30 mg capsule,delayed cap PO 09/29/21 release duloxetine 60 mg capsule,delayed cap PO 09/29/21 release gabapentin 300 mg capsule cap 09/29/21 liraglutide 0.6 mg/0.1 mL (18 mg/3 ea subcut 09/29/21 mL) subcutaneous pen injector (Victoza 3-Bunny) metformin 500 mg tablet tablet 09/29/21 omeprazole 40 mg capsule,delayed cap 09/29/21 release Allergies Allergy/AdvReac Type Severity Reaction Status Date / Time adhesive tape Allergy Intermediate REDNESS Verified 09/29/21 16:23 adhesive Allergy Unknown Skin Verified 09/29/21 16:23 irritation celecoxib Allergy Unknown Dizziness Verified 09/29/21 16:23 latex Allergy Unknown Skin Verified 09/29/21 16:23 irritation Review of Systems Review of Systems: CONSTITUTIONAL: Denies body aches, fever, chills ENT: Denies rhinorrhea, congestion CARDIOVASCULAR: Denies chest pain, palpitations, or edema. RESPIRATORY: Denies cough or dyspnea. GASTROINTESTINAL: Endorses abdominal cramping, diarrhea. Denies hematochezia, melena, hematemesis GENITOURINARY: Denies dysuria, hematuria, or CVA tenderness. NEUROLOGIC: Reports headache All systems reviewed & are unremarkable except as noted in HPI and below PMFSH Past Medical History Medical History (Updated 09/29/21 @ 16:48 by Lorrie Lowe, MILLY) Anxiety and depression Chronic kidney disease Noted since January 2019 Essential hypertension Fibromyalgia Hiatal hernia Hyperlipidemia Normal colonoscopy December 2014 Obesity Obstructive sleep apnea Moderate obstructive sleep apnea noted sleep study from June 2015 recommending CPAP of 12 but patient refuses CPAP Osteopenia Shingles 2017 Type 2 diabetes mellitus Surgical History Surgical History History of bilateral carpal tunnel release December 2017 History of cardiac catheterization No evidence of coronary artery disease noted on cardiac catheterization January 2017 History of section 1986 History of lumbar surgery 2003 History of total bilateral knee replacement Right knee April 2017 History of tubal ligation 1995 Status post trigger finger release Left thumb Family History Family History Sibling Depression Arthritis Bipolar disorder Father Hypertension COPD (chronic obstructive pulmonary disease) Arthritis CHF (congestive heart failure) Coronary artery disease Gout Mother Hypertension Arthritis Grandparent Dementia Social History Social History Smoking status: Never smoker Second hand tobacco smoke exposure: No Smoking end date: 04/22/86 Alcohol intake: never Substance use: never Additional occupation/education comments: She reports that she has been unable to work due to her fibromyalgia. 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 Gender identity (if verbalized by the patient): Female Spiritual care concerns: No Comments At time of signature, I have reviewed and agree with nursing past medical, surgic
== END 2021-09-29 16:55 | disposition home or self-care (01) ==
PROVIDERS: Emergency Provider Nurse Practitioner Family; PCP Nurse Practitioner Adult Health
DX: R19.7 Diarrhea, unspecified (principal); Z20.822 Contact with and (suspected) exposure to COVID-19; I12.9 Hypertensive chronic kidney disease with stage 1 through stage 4 chronic kidney disease, or unspecified chronic kidney disease; N18.9 Chronic kidney disease, unspecified; E11.22 Type 2 diabetes mellitus with diabetic chronic kidney disease; Z79.4 Long term (current) use of insulin; Z79.84 Long term (current) use of oral hypoglycemic drugs; G47.33 Obstructive sleep apnea (adult) (pediatric); M81.0 Age-related osteoporosis without current pathological fracture; M79.7 Fibromyalgia; Z96.653 Presence of artificial knee joint, bilateral
CPT/HCPCS: 87426; 87804; 99213; C9803; G0463

== ENCOUNTER 2022-09-12 09:17 | Outpatient (CLI) | payer MEDICARE, MEDICAID, SELFPAY ==
--- NOTE | ~2022-09-12 | MM_ITS ---
EXAMINATION: MM screening [facility] BI w mario HISTORY: Screening mammogram TECHNIQUE: Craniocaudal and mediolateral oblique 3-D tomosynthesis images were obtained and synthetic 2-D images were generated. CAD analysis was submitted and interpreted. COMPARISON: 05/10/2021, 90 2920, 07/23/2018 BREAST PARENCHYMAL COMPOSITION: The breasts are almost entirely fatty. FINDINGS: No suspicious mass, calcification, or architectural distortion are identified in either kylah ast to suggest malignancy. There has been no suspicious interval change. IMPRESSION: 1. No mammographic evidence of malignancy. 2. Recommend routine screening mammography in one year. BI-RADS Category 1: Negative Reviewed, dictated and finalized at location A.
== END 2022-09-12 09:18 | disposition home or self-care (01) ==
LOC: ANHIMG 09:20
PROVIDERS: PCP Family Medicine; Visit Provider Nurse Practitioner
DX: Z12.31 Encounter for screening mammogram for malignant neoplasm of breast (principal)
CPT/HCPCS: 77063; 77067

== ENCOUNTER 2023-10-16 15:40 | Outpatient (CLI) | payer MEDICARE, MEDICAID, SELFPAY ==
--- NOTE | ~2023-10-16 | MM_ITS ---
EXAMINATION: MM screening [facility] BI w mario HISTORY: Screening mammogram TECHNIQUE: Craniocaudal and mediolateral oblique 3-D tomosynthesis images were obtained and synthetic 2-D images were generated. CAD analysis was submitted and interpreted. COMPARISON: 09/12/2022, 05/10/2021, 01/19/2020 BREAST PARENCHYMAL COMPOSITION:Not Dense. The breasts are almost entirely fatty FINDINGS: No suspicious mass, calcification, or architectural distortion are identified in either kylah ast to suggest malignancy. There has been no suspicious interval change. IMPRESSION: No mammographic evidence of malignancy. Recommend routine screening mammography in one year. BI-RADS Category 1: Negative Reviewed, dictated and finalized at location .
== END 2023-10-16 15:41 | disposition home or self-care (01) ==
LOC: ANHIMG 15:43
PROVIDERS: PCP Nurse Practitioner Adult Health; Visit Provider Nurse Practitioner
DX: Z12.31 Encounter for screening mammogram for malignant neoplasm of breast (principal)
CPT/HCPCS: 77063; 77067

== ENCOUNTER 2024-02-26 09:17 | Outpatient (CLI) | payer MEDICARE, MEDICAID, SELFPAY ==
[2024-02-26 21:14] LABS: Alanine Aminotransferase 27 U/L (6-35); Albumin Level 4.1 g/dL (3.5-5.1); Alkaline Phosphatase 65 U/L (38-126); Anion Gap 8 mmol/L (4-12); Aspartate Amino Transferase 64 U/L (14-36); Bilirubin,Total 0.5 mg/dL (0.2-1.3); Blood Urea Nitrogen 23 mg/dL (7-17); Calcium 8.9 mg/dL (8.4-10.2); Carbon Dioxide 31 mmol/L (22-30); Chloride 100 mmol/L (98-107); Cholesterol 230 mg/dL (0-200); Estimated Glomerular Filt Rate > 60; Glucose 93 mg/dL (65-110); HDL Direct 49 mg/dL; Potassium 4.2 mmol/L (3.4-5.0); Sodium 139 mmol/L (137-145); Triglycerides 137 mg/dL (<150)
[2024-02-26 21:24] LABS: LDL Cholesterol Direct 134 mg/dL
[2024-02-26 21:48] LABS: Creatinine Urine 180.4 mg/dL
[2024-02-26 22:07] LABS: MALB Creatinine Ratio < 3.3 mg/g (0-30); Microalbumin Urine Random < 6.0 mg/L (0-16.7)
== END 2024-02-26 09:18 | disposition home or self-care (01) ==
PROVIDERS: PCP Nurse Practitioner Adult Health; Visit Provider Nurse Practitioner Adult Health
DX: E11.9 Type 2 diabetes mellitus without complications (principal); Z51.81 Encounter for therapeutic drug level monitoring
CPT/HCPCS: 36415; 80053; 80061; 82043; 82565; 82607; 83036

== ENCOUNTER 2024-06-01 13:40 | Emergency (ER) | payer MEDICARE, MEDICAID, SELFPAY ==
--- OUTSIDE RECORDS SUMMARY | 2024-06-01 13:51 | XMS_ITS | Encounter Summary ---
Author Organization [facility] Facility Care Team Providers Care Agency Owner Name Role Phone Alicia Rome MD Primary Care Provide r Chelsie Myrick NP Primary Care Provider [phone] Ray Antonio MD Unavailable [phone] Maribell Robles Unavailable [phone] Elizabeth Abel MD Primary Care Provider [phone] Encounter Details Date Type Department Care Team (Latest Contact Info) Description 08/29/2017 Orders Only [facility] Provider, MD Radha [address] [place] [address] Social History Tobacco Use Types Packs/Day Years Used Date Smoking Tobacco: Former Smokeless Tobacco: Never Alcohol Use Standard Drinks/Week Comments No 0 (1 standard drink = 0.6 oz pur e alcohol) Comments Unknown Sex and Gender Information Value Date Recorded Sex Assigned at Not on file Legal Sex Female 7:45 PM TRAVEL PTA Gender Identity Not on file Sexual Orientation Not on file documented as of this encounter Plan of Treatment Not on file documented as of this encounter Procedures Procedure Name Priority Date/Time Associated Diagnosis Comments SCAN - LABS 01/15/2018 12:00 AM CDT SCAN - LABS 09/05/2017 12:00 AM CDT SCAN - LABS 09/03/2017 12:00 AM CDT SCAN - LABS 09/03/2017 12:00 AM CDT SCAN - LABS 09/03/2017 12:00 AM CDT documented in this encounter Results * SCAN - LABS (01/15/2018 12:00 AM CDT) Narrative 01/15/2018 12:00 AM CDT Ordered by an unspecified provider. [facility] Provider MD Final Res ult * SCAN - LABS (09/05/2017 12:00 AM CDT) Narrative 09/05/2017 12:00 AM CDT Ordered by an unspecified provider. [facility] Provider Final Res ult * SCAN - LABS (09/03/2017 12:00 AM CDT) Narrative 09/03/2017 12:00 AM CDT Ordered by an unspecified provider. [facility] Provider Final Res ult * SCAN - LABS (09/03/2017 12:00 AM CDT) Narrative 09/03/2017 12:00 AM CDT Ordered by an unspecified provider. [facility] Provider Final Res ult * SCAN - LABS (09/03/2017 12:00 AM CDT) Narrative 09/03/2017 12:00 AM CDT Ordered by an unspecified provider. [facility] Provider Final Res ult documented in this encounter Visit Diagnoses Not on filedocumented in this encounter Additional Health Concerns Infection Onset Date Last Indicated Resolved Time COVID: Suspected 10/02/2022 10/02/2022 10/02/2022 4:04 PM CDT COVID19 10/02/2022 10/02/2022 10/12/2022 3:0 6 AM CDT COVID: Recovered Comment:Added based on recent COVID infection. 10/12/2022 10/16/2022 01/10/2023 3:05 AM C DT documented as of this encounter Care Teams Agency Owner Relationship Specialty Start Date End Date Alicia Rome MD [address] [place] [address] PCP - General Family Medicine 01/16/17 05/05/19 Chelsie Myrick NP [address] [place] [address] PCP - General Nurse Practitioner 05/06/19 03/26/22 Elizabeth Abel MD [address] [place] [address] PCP - General Family Practice 03/27/22 Ray Antonio MD [address] [place] [address] Surgeon Orthopedic Surgery 06/02/19 Maribell Robles PA [address] [place] [address] Physician Extrusion Press Supervisor Orthopedic Surgery 12/05/21 documented as of this encounter
--- OUTSIDE RECORDS SUMMARY | 2024-06-01 13:51 | XMS_ITS | Encounter Summary ---
Author Organization [facility] Facility Care Team Providers Care School Library Media Program Director Name Role Phone Alicia Rome MD Primary Care Provide r Chelsie Myrick NP Primary Care Provider [phone] Ray Antonio MD Unavailable [phone] Maribell Robles Unavailable [phone] Elizabeth Abel MD Primary Care Provider [phone] Encounter Details Date Type Department Care Team (Latest Contact Info) Description 03/21/2018 Orders Only [facility]INCON[facility] Provider, MD Radha [address] [place] [address] Social History Tobacco Use Types Packs/Day Years Used Date Smoking Tobacco: Former Smokeless Tobacco: Never Alcohol Use Standard Drinks/Week Comments No 0 (1 standard drink = 0.6 oz pur e alcohol) Comments Unknown Sex and Gender Information Value Date Recorded Sex Assigned at Not on file Legal Sex Female 7:45 PM QUALITY CONTROL ASSOCIATE Gender Identity Not on file Sexual Orientation Not on file documented as of this encounter Plan of Treatment Not on file documented as of this encounter Procedures Procedure Name Priority Date/Time Associated Diagnosis Comments SCAN - LABS 03/24/2018 12:00 AM QUALITY CONTROL ASSOCIATE documented in this encounter Results * SCAN - LABS (03/24/2018 12:00 AM QUALITY CONTROL ASSOCIATE) Narrative 03/24/2018 12:00 AM QUALITY CONTROL ASSOCIATE Ordered by an unspecified provider. us Historical Provider Final Res ult documented in this encounter Visit Diagnoses Not on filedocumented in this encounter Additional Health Concerns Infection Onset Date Last Indicated Resolved Time COVID: Suspected 10/02/2022 10/02/2022 10/02/2022 4:04 PM CDT COVID19 10/02/2022 10/02/2022 10/12/2022 3:06 AM CDT COVID: Recovered Comment:Added based on recent COVID infection. 10/12/2022 10/16/2022 01/10/2023 3:05 AM C DT documented as of this encounter Care Teams School Library Media Program Director Relationship Specialty Start Date End Date Alicia Rome MD [address] [place] [address] PCP - General Family Medicine 01/16/17 05/05/19 Chelsie Myrick NP [address] [place] [address] PCP - General Nurse Practitioner 05/06/19 03/26/22 Elizabeth Abel MD [address] [place] [address] PCP - General Family Practice 03/27/22 Ray Antonio MD [address] [place] [address] Surgeon Orthopedic Surgery 06/02/19 Maribell Robles PA [address] [place] [address] Physician Foundry Worker Apprentice Orthopedic Surgery 12/05/21 documented as of this encounter
--- OUTSIDE RECORDS SUMMARY | 2024-06-01 13:51 | XMS_ITS | Encounter Summary ---
Author Organization [facility] Address [address] [place] [address] Phone Care Team Providers Care Dough Molder Hand Name Role Phone Marlene Cary MD Primary Care Provider + Alicia Rome MD Primary Care Provide r Chelsie Myrick NP Primary Care Provider Ray Antonio MD Unavailable Maribell Robles Unavailable [phone] Elizabeth Abel MD Primary Care Provider [phone] Encounter Details Date Type Department Care Team (Late st Contact Info) Description 12/27/2014 Orders Only [facility] [address] [place] [address] Scanning, Provider Social History Tobacco Use Types Packs/Day Years Used Date Smoking Tobacco: Former Cigarettes Q uit: 04/22/1976 Alcohol Use Standard Drinks/Week Comments No 0 (1 standard drink = 0.6 oz pur e alcohol) Comments Unknown Sex and Gender Information Value Date Recorded Sex Assigned at Not on file Legal Sex Female 7:45 PM SENIOR OPERATIONS ANALYST Gender Identity Not on file Sexual Orientation Not on file documented as of this encounter Plan of Treatment Not on file documented as of this encounter Procedures Procedure Name Priority Date/Time Associated Diagnosis Comments GI - RESULT 12/27/2014 documented in this encounter Results * GI - RESULT (12/27/2014) Anatomical Region Laterality Modality Other us Provider Scanning Final Result documented in this encounter Visit Diagnoses Not on filedocumented in this encounter Additional Health Concerns Infection Onset Date Last Indicated Resolved Time COVID: Suspected 10/02/2022 10/02/2022 10/02/2022 4:04 PM CDT COVID19 10/02/2022 10/02/2022 10/12/2022 3:06 AM CDT COVID: Recovered Comment:Added based on recent COVID infection. 10/12/2022 10/16/2022 01/10/2023 3:05 AM C DT documented as of this encounter Care Teams Dough Molder Hand Relationship Specialty Start Date End Date Marlene Cary MD [address] [place] [address] PCP - General 02/17/14 01/15/17 Alicia Rome MD [address] [place] [address] PCP - General Family Medicine 01/16/17 05/05/19 Chelsie Myrick NP [address] [place] [address] PCP - General Nurse Practitioner 05/06/19 03/26/22 Elizabeth Abel MD [address] [place] [address] PCP - General Family Practice 03/27/22 Ray Antonio MD [address] [place] [address] Surgeon Orthopedic Surgery 06/02/19 Maribell Robles PA [address] [place] [address] Physician Educational Therapy Teacher Orthopedic Surgery 12/05/21 documented as of this encounter
--- OUTSIDE RECORDS SUMMARY | 2024-06-01 13:51 | XMS_ITS | Encounter Summary ---
Author Organization [facility] Facility Care Team Providers Care Dredge Pumper Name Role Phone Marlene Cary MD Primary Care Provider + Alicia Rome MD Primary Care Provide r Chelsie Myrick NP Primary Care Provider [phone] Ray Antonio MD Unavailable [phone] Maribell Robles Unavailable [phone] Elizabeth Abel MD Primary Care Provider [phone] Encounter Details Date Type Department Care Team (Latest Contact Info) Description 01/04/2017 Orders Only [facility]IN[facility] ProviderRadha MD [address] [place] [address] Social History Tobacco Use Types Packs/Day Years Used Date Smoking Tobacco: Former Smokeless Tobacco: Never Alcohol Use Standard Drinks/Week Comments No 0 (1 standard drink = 0.6 oz pur e alcohol) Comments Unknown Sex and Gender Information Value Date Recorded Sex Assigned at Not on file 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 us Historical Provider [facility] Final Result documented in this encounter Visit Diagnoses Not on filedocumented in this encounter Additional Health Concerns Infection Onset Date Last Indicated Resolved Time COVID: Suspected 10/02/2022 10/02/2022 10/02/2022 4:04 PM CDT COVID19 10/02/2022 10/02/2022 10/12/2022 3:06 AM CDT COVID: Recovered Comment:Added based on recent COVID infection. 10/12/2022 10/16/2022 01/10/2023 3:05 AM C DT documented as of this encounter Care Teams Dredge Pumper Relationship Specialty Start Date End Date Marlene Cary MD [address] [place] [address] PCP - General 02/17/14 01/15/17 Alicia Rome MD [address] [place] [address] PCP - General Family Medicine 01/16/17 05/05/19 Chelsie Myrick NP [address] [place] [address] PCP - General Nurse Practitioner 05/06/19 03/26/22 Elizabeth Abel MD [address] [place] [address] PCP - General Family Practice 03/27/22 Ray Antonio MD [address] [place] [address] Surgeon Orthopedic Surgery 06/02/19 Maribell Robles PA [address] [facility] [address] [place] [address] Physician Interactive Producer Orthopedic Surgery 12/05/21 documented as of this encounter
--- OUTSIDE RECORDS SUMMARY | 2024-06-01 13:51 | XMS_ITS | Continuity of Care Document ---
Author Organization [facility] Address [address] [place] [address] Phone Care Team Providers Care Oncology Physician Assistant Name Role Phone Ztest, Provider Unavailable Unavailable Medications Medication Instructions Dosage Effective Dates (start - stop) Status Comments ENALAPRIL MALEATE 10MG TABS 1 DAILY - Active HYDROCHLOROTHIAZIDE 25MG TABS 1 QAM 6 - Active ETODOLAC 400MG TABS 1 BID - Active Advance Directives Directive Yes / No Effective Date File Name No Information Encounters Encounter Description Practice Location Reason(s) For Visit Diagnoses Date Provider Providers Copied on [facility]counter [facility] [address], [place], [place], [address] , tel: [phone] [facility] No Information 8 Ztest Provider. [address] [facility], 4th Floor, [place], [place], [facility], . tel:[phone] [facility], [address], [place], [place], [address] , tel: [phone] Conversion Department No Information 201 1 Conversion Doctor. [address] [place], [place], [facility], . [facility], [address], [place], [place], [address] , tel: [phone] [facility] HEALTH EXAM-GROUP SURVEY Sep-3 0-200 5 No Information [facility], [address], [place], [place], [address] , tel: [phone] [facility] BENIGN HYPERTENSION Sep-1 2-200 5 No Information [facility], [address], [place], [place], [address] , tel: [phone] [facility] LUMBAGO 5 Conversion Doctor. [facility] [place], [address], . [facility], [address], [place], [place], [address] , tel: [phone] [facility] LOC PRIM OSTEOART-L/LEG 5 No Information [facility] [employer], [address], [place], [place], [address] , [place] tel: [phone] [facility] OSTEOARTHROS NOS-UNSPEC 5 No Information [facility], [address], [place], [place], [address] , [place] tel: [phone] [facility] NE DEPRESSIVE DISORDER NECLUMB/LUMBOSAC DISC DEGENSPINAL STENOSIS-LUMBAR 4 No Information [facility], [address], [place], [place], [address] , [place] tel: [phone] [facility] HYPERTENSION NOS 4 Conversion Doctor. [facility] [place], [address], . [facility], [address], [place], [place], [address] , tel: [phone] [facility] POLYDIPSIAACUTE SINUSITIS NOS 4 Conversion Doctor. [facility] [place], [address], . [facility], [address], [place], [place], [address] , tel: [phone] [facility] IRRITABLE BOWEL SYNDROME 3 Conversion Doctor. [facility] [place], [address], . Family History Family Member Type Diagnosis Age At Onset No Information Payers Payer name Insurance type Covered green party ID Authoriza tion(s) No Information Social History Type Description Quantity Date Captured Comments Alcohol Use Details Unknown Caffeine Use Details Unknown Tobacco Use Status No Information Smoking Status No Information Sex Female Chief Complaint And Reason For Visit No Information Reason For Referral Reason For Referral No Information History Of Present Illness Encounter Date Complaint History Of Prese nt Illness No Information Functional Status Date Functional Assessmen t No Information Instructions Date Instruction Additional Infor mation No Information Assessments Type Assessment Date No Information Patient Care Teams Name Effective Dates (start - stop) Status Members No Information
--- OUTSIDE RECORDS SUMMARY | 2024-06-01 13:51 | XMS_ITS | Encounter Summary ---
Author Organization [facility] Facility Care Team Providers Care Screen Printing Inspector Name Role Phone Alicia Rome MD Primary Care Provide r Chelsie Myrick NP Primary Care Provider [phone] Ray Antonio MD Unavailable [phone] Maribell Robles Unavailable [phone] Elizabeth Abel MD Primary Care Provider [phone] Encounter Details Date Type Department Care Team (Latest Contact Info) Description 12/31/2017 Orders Only [facility] CLINCONV Provider, MD Radha [address] [place] [address] Social History Tobacco Use Types Packs/Day Years Used Date Smoking Tobacco: Former Smokeless Tobacco: Never Alcohol Use Standard Drinks/Week Comments No 0 (1 standard drink = 0.6 oz pur e alcohol) Comments Unknown Sex and Gender Information Value Date Recorded Sex Assigned at Not on file Legal Sex Female 7:45 PM RADIO HOST Gender Identity Not on file Sexual Orientation Not on file documented as of this encounter Plan of Treatment Not on file documented as of this encounter Procedures Procedure Name Priority Date/Time Associated Diagnosis Comments SCAN - LABS 01/01/2018 12:00 AM CDT documented in this encounter Results * SCAN - LABS (01/01/2018 12:00 AM CDT) Narrative 01/01/2018 12:00 AM CDT Ordered by an unspecified [...] documented as of this encounter Care Teams Screen Printing Inspector Relationship Specialty Start Date End Date Alicia Rome MD [address] [place] [address] PCP - General Family Medicine 01/16/17 05/05/19 Chelsie Myrick NP [address] [place] [address] PCP - General Nurse Practitioner 05/06/19 03/26/22 Elizabeth Abel MD [address] [place] [address] PCP - General Family Practice 03/27/22 Ray Antonio MD [address] [place] [address] Surgeon Orthopedic Surgery 06/02/19 Maribell Robles PA [address] [place] [address] Physician Courtroom Deputy Or Calendar Clerk Orthopedic Surgery 12/05/21 documented as of this encounter
--- OUTSIDE RECORDS SUMMARY | 2024-06-01 13:51 | XMS_ITS | Encounter Summary ---
Author Organization [facility] Facility Care Team Providers Care Poultry Killer Name Role Phone Alicia Rome MD Primary Care Provide r Chelsie Myrick NP Primary Care Provider [phone] Ray Antonio MD Unavailable [phone] Maribell Robles Unavailable [phone] Elizabeth Abel MD Primary Care Provider [phone] Encounter Details Date Type Department Care Team (Latest Contact Info) Description 01/25/2017 Orders Only [facility] CLINCONV Provider, MD Radha [address] [place] [address] Social History Tobacco Use Types Packs/Day Years Used Date Smoking Tobacco: Former Smokeless Tobacco: Never Alcohol Use Standard Drinks/Week Comments No 0 (1 standard drink = 0.6 oz pur e alcohol) Comments Unknown Sex and Gender Information Value Date Recorded Sex Assigned at Not on file Legal Sex Female 7:45 PM BUDGET DIRECTOR Gender Identity Not on file Sexual Orientation Not on file documented as of this encounter Plan of Treatment Not on file documented as of this encounter Procedures Procedure Name Priority Date/Time Associated Diagnosis Comments CARDIOLOGY REPORT 03/27/2017 12: 00 AM BUDGET DIRECTOR SCAN - LABS 01/25/2017 12:00 AM CDT documented in this encounter Results * CARDIOLOGY REPORT (03/27/2017 12:00 AM BUDGET DIRECTOR) Anatomical Region Laterality Modality Other Narrative 03/27/2017 12:00 AM BUDGET DIRECTOR Ordered by an unspecified provider. us Historical Provider [facility] PROCE FRANNY Final Result * SCAN - LABS (01/25/2017 12:00 AM CDT) Narrative 01/25/2017 12:00 AM CDT Ordered by an unspecified [...] documented as of this encounter Care Teams Poultry Killer Relationship Specialty Start Date End Date Alicia Rome MD [address] [place] [address] PCP - General Family Medicine 01/16/17 05/05/19 Chelsie Myrick NP [address] [place] [address] PCP - General Nurse Practitioner 05/06/19 03/26/22 Elizabeth Abel MD [address] [place] [address] PCP - General Family Practice 03/27/22 Ray Antonio MD [address] [place] [address] Surgeon Orthopedic Surgery 06/02/19 Maribell Robles PA [address] [facility] [address] [place] [address] Physician Validation Manager Orthopedic Surgery 12/05/21 documented as of this encounter
--- OUTSIDE RECORDS SUMMARY | 2024-06-01 13:51 | XMS_ITS | Clinical Summary ---
Author Organization [facility] [address] Address [address] [place] [address] Care Team Providers Care Television Producer Name Role Phone Ray Antonio MD Unavailable Maribell Robles Unavailable [phone] Elizabeth Abel MD Primary Care Provider Allergies Active Allergy Reactions Criticality Noted Date Comments Celecoxib Dizziness Low 12/25/2016 Latex Redness Low 06/01/2019 Medications multivitamin capsule Take 1 capsule by mouth daily Active pen needle, diabetic 32 gauge x 32 needle Use every day with victoza 100 each 1 04/30/2022 Active lisinopriL (PRINIVIL,ZESTR IL) 5 mg tablet Take 1 tablet (5 mg total) by mouth daily 90 tablet 1 04/25/2023 Active gabapentin (NEURONTIN) 300 mg capsuleIndicati ons:Fibromyalgi a Take 3 capsules (900 mg total) by mouth 2 (two) times a day 540 capsule 1 04/25/[address] (CYMBALTA) 60 mg capsule Take 1 capsule (60 mg total) by mouth daily With 30mg capsule 90 capsule 1 05/02/2023 Active omeprazole (PriLOSEC) 40 mg capsule TAKE 1 CAPSULE (40 MG TOTAL) BY MOUTH DAILY. 90 capsule 05/16/[address] (CYMBALTA) 30 mg capsule Take 1 capsule (30 mg total) by mouth daily 90 capsule 1 05/17/2023 Active metFORMIN (GLUCOPHAGE) 500 mg tablet Take 1 tablet (500 mg total) by mouth 2 (two) times a day with meals 180 tablet 1 06/14/2023 Active hydroCHLOROthia zide (HYDRODIURIL) 25 mg tablet TAKE 1 TABLET (25 MG TOTAL) BY MOUTH DAILY. 90 tablet 07/15/2023 Active Active Problems Problem Noted Date Diagnosed Date Chronic hip pain, bilateral 07/09/2023 Assessment & Plan (07/09/2023 12:23 PM CDT): Worse on right than left, see HPI for details. Decreased abduction and tenderness over IT band as indicated above, no other acute findings. Will obtain XR of bilateral hips to r/o arthritis or other structural changes. Continue Ibuprofen and tylenol as instructed. Heat/ice as tolerated. Diclofenac gel encouraged. Offered PT referral, patient wants to see what XRs say first. Right shoulder pain 08/15/2022 Assessment & Plan (07/09/2023 12:20 PM CDT): Chronic, worse in last month. XR of R shoulder from last year showed arthritis mostly at AC joint. Tenderness as noted above, no other acute findings. Discussed Rx for Meloxicam but given reaction to celebrex will stick with Ibuprofen and tylenol as instructed. Heat/ice as tolerated. Encouraged diclofenac gel OTC. Continue duloxetine and gabapentin as rxd for fibromyalgias. Assessment & Plan (10/31/2022 5:15 PM CDT): Improved. Likely acute on chronic exacerbation of shoulder osteoarthritis vs AC joint. Plain films show AC joint OA. Completed PT -Continue gabapentin to 300 mg TID -Cont. Duloxetine and Flexeril as instructed. -F/u prn Assessment & Plan (08/15/2022 12:59 PM CDT): Also with neck pain. ?acute on chronic exacerbation of shoulder osteoarthritis vs AC joint impingement vs tendinits -Will further evaluate with XR images of right shoulder and cervical neck -Will adjust gabapentin to 300 mg TID, if pain does not improve, she may increase the middle dose to 600 mg. -Cont. Duloxetine and Flexeril as instructed. -Will refer to physical therapy for neck and shoulder exercises to improve range or motion -F/u at next appointment scheduled in 2 months Neck pain 08/15/2022 Annual physical exam 07/13/2022 Assessment & Plan (07/13/2022 4:15 PM CDT): Doing well. BMI: 38.4 (Obese) Routine labs ordered - BMP, A1C, Lipid, Hep C Preventative Screening Due: Up-to-date. Will request colonoscopy results from [facility] Dietary and exercise recommendations given today. Recommend exercise at least 30 minutes moderate to vigorous exercise and some strength training most days of the week. (minimum 150 minutes weekly) Discussed MyPlate recommendations and increasing fruits and vegetables Vaccines due - Tdap, zoster, COVID booster RTC annually for f/u Anxiety and depression 03/27/2022 Assessment & Plan (10/31/2022 5:16 PM CDT): Chronic and stable. PHQ 2 and 0 ronni 7 not completed -continue Cymbalta 90 mg daily Follow-up 6 months Assessment & Plan (07/13/2022 4:13 PM CDT): Chronic and stable. PHQ 9 score is 0 ronni 7 not completed -continue Cymbalta 90 mg daily Follow-up 6 months Assessment & Plan (03/27/2022 12:39 PM VINEYARDIST): Chronic and stable. PHQ 9 score is 0 ronni 7 score 6. Mild anxiety -continue Cymbalta 90 mg daily Follow-up 6 months Fibromyalgia 03/27/2022 Assessment & Plan (07/09/2023 12:24 PM CDT): Controlled with duloxetine and gabapentin, continue current regimen. See plan for hip and shoulder pain above. Assessment & Plan (07/13/2022 4:16 PM CDT): Chronic and ongoing. Continue current medication (gabapentin and Cymbalta). -labs ordered -recommend restarting water aerobics if able to,or yoga, [employer] -Flexeril 5-10 mg at night as needed. Patient has taken before without issues -follow-up 3 months Assessment & Plan (03/27/2022 12:39 PM VINEYARDIST): Chronic and stable. Continue current medication (gabapentin). Prediabetes 03/27/2022 Assessment & Plan (02/13/2023 3:13 PM CDT): Chronic and stable. Will repeat labs 03/2023 to monitor for changes off Victoza. Patient was previously taking medication for weight loss Assessment & Plan (07/13/2022 4:14 PM CDT): Chronic and stable. Continue current medication. Labs ordered today. Follow-up 3 months Assessment & Plan (03/27/2022 12:39 PM VINEYARDIST): Chronic and stable. Continue current medication. Will request lab results from previous PCP. Follow-up 3 months at well visit Gastroesophageal reflux disease 03/27/2022 Assessment & Plan (04/25/2023 3:58 PM VINEYARDIST): History of hiatal hernia. Chronic and stable. Continue current medication. Will monitor Assessment & Plan (03/27/2022 12:40 PM VINEYARDIST): Chronic. History of hiatal hernia. Chronic and stable. Continue current medication. Will monitor Feared condition not demonstrated 03/27/2022 Assessment & Plan (03/27/2022 12:43 PM VINEYARDIST): Concern for memory loss. Mini cog completed today and patient score 5/5. No impairment identified on evaluation. Advise will continue to monitor. Patient can continue with keeping list to help remember tasks that need to be complete, grocery needed etc. if memory issue continues to be a concern can complete mini-mental status exam and consider neuropsychology evaluation. F/u as needed Rotator cuff arthropathy, left 11/16/2021 Overview (11/16/2021): Added automatically from request for surgery [id number] Aftercare following left knee joint replacement surgery 07/21/2019 Primary osteoarthritis of left knee 05/15/2019 Overview (05/15/2019): Added automatically from request for surgery [id number] Abnormal stress test 01/16/2017 Exertional dyspnea 01/16/2017 Class 3 severe obesity due t o excess calories with serious comorbidity and body mass index (BMI) of 40.0 to 44.9 in adult 12/25/2016 Assessment & Plan (04/25/2023 3:57 PM VINEYARDIST): BMI:42 (Obese) Dietary and exercise recommendations reiterated today. Recommend exercise at least 30 minutes moderate to vigorous exercise and some strength training most days of the week. (minimum 150 minutes weekly) Victoza 3mg daily has been approved again by insurance but patient demonstrating no weight loss since last visit. Gained 11lbs. Referred to nutrition for counseling Recommend seeking therapy for emotional issues with eating Follow-up 3 months Assessment & Plan (02/13/2023 3:14 PM CDT): BMI:40.0 (Obese) Dietary and exercise recommendations reiterated today. Recommend exercise at least 30 minutes moderate to vigorous exercise and some strength training most days of the week. (minimum 150 minutes weekly) Victoza 3mg daily denied by insurance for weight loss. Patient denying issues with needing appetite suppression. Referred to nutrition for counseling Recommend seeking therapy for emotional issues with eating Follow-up 2 months Assessment & Plan (01/16/2023 11:17 AM CDT): BMI:39.5 (Obese) Dietary and exercise recommendations reiterated today. Recommend exercise at least 30 minutes moderate to vigorous exercise and some strength training most days of the week. (minimum 150 minutes weekly) Start Victoza 3mg daily. Starting weight 216- recommend 8-12lbs lost during the next 3 months to continue. Will contact pharmacy regarding prescription issue Follow up 4 weeks Assessment & Plan (12/06/2022 5:34 PM CDT): BMI:39.5 (Obese) Dietary and exercise recommendations reiterated today. Recommend exercise at least 30 minutes moderate to vigorous exercise and some strength training most days of the week. (minimum 150 minutes weekly) Increase Victoza 3mg daily. Risks benefits and alternatives discussed Follow up 6 weeks Assessment & Plan (10/31/2022 5:18 PM CDT): BMI:39.5 (Obese) Dietary and exercise recommendations reiterated today. Recommend exercise at least 30 minutes moderate to vigorous exercise and some strength training most days of the week. (minimum 150 minutes weekly) Continue Victoza 2.4mg daily. Monitor for side effects Follow up 4 weeks Assessment & Plan (03/27/2022 12:37 PM VINEYARDIST): Doing well. BMI:38.05 (Obese) Dietary and exercise recommendations given today. Recommend exercise at least 30 minutes moderate to vigorous exercise and some strength training most days of the week. (minimum 150 minutes weekly) Increase Victoza 2.4mg daily. Risks benefits and alternatives discussed. Monitor for side effects Follow-up 3 months during well visit Chronic fatigue 09/06/2016 Overview (07/27/2023): E-CW Converted: details lacking. Osteopenia 05/14/2016 Overview (07/27/2023): E-CW Converted: details lacking. Primary osteoarthritis involving multiple joints 03/29/2016 Overview (07/27/2023): E-CW Converted Obstructive sleep apnea syndrome 03/29/2016 Overview (07/27/2023): E-CW Converted: cpap controlled Moderate episode of recurrent major depressive d isorder 03/29/2016 Overview (07/27/2023): E-CW Converted: improved Essential hypertension 02/17/2014 Overview (07/27/2016): Essential hypertension Assessment & Plan (07/09/2023 12:24 PM CDT): BP stable in office today on current therapy. No acute findings on exam. Continue current regimen and low salt diet. Assessment & Plan (04/25/2023 3:54 PM VINEYARDIST): Chronic and elevated. Goal < 130/80 Continue HCTZ 25 mg daily. Start lisinopril 5 mg daily. Risks/benefits and alternatives discussed Continue Low salt diet F/u 3 months Assessment & Plan (02/13/2023 3:12 PM CDT): Chronic and mildly elevated. Goal < 130/80 Continue HCTZ 25 mg daily. Continue Low salt diet Monitor blood pressure 1 to 2 times weekly and log Potassium check today Follow-up 8 weeks. Will add 2nd medication if not at goal Assessment & Plan (01/16/2023 11:18 AM CDT): Chronic and recurrent. Goal < 130/80 Start HCTZ 25 mg daily. Risks/benefits and alternatives discussed Low salt diet Monitor blood pressure 1 to 2 times weekly and log Potassium check 1 week Follow-up 4 weeks Assessment & Plan (12/06/2022 5:35 PM CDT): Patient endorses hx of HTN on meds prior to previous weight loss. Will re-eval at f/u 6 weeks and if ongoing will restart medication. Goal <130/80. Low salt diet Assessment & Plan (10/31/2022 5:19 PM CDT): Patient endorses hx of HTN on meds prior to a 50lbs weight loss. Will re-eval at f/u 4 weeks and if ongoing will restart medication. Assessment & Plan (08/15/2022 12:58 PM CDT): Hx of HTN in past. Not currently on medication. Likely elevated today due to pain. Will re-evaluate at f/u Assessment & Plan (07/13/2022 4:12 PM CDT): Chronic and stable. Remains mildly above goal <130/80 off medication. Will Continue to monitor. If elevated at three-month follow-up will start low-dose blood pressure medication Assessment & Plan (03/27/2022 12:32 PM VINEYARDIST): Chronic and stable. Minimally above goal <130/80 off medication. Will Continue to monitor Resolved Problems Problem Noted Date Diagnosed Date Resolved Date Biceps tendonitis on left 11/16/2021 Overview (11/16/2021): Added automatically from request for surgery [id number] Immunizations Name Administration Dates Next Due Influenza, Quadrivalent, Spl it, Preservative Free, Intramuscular 02/13/2023,03/27/2022,01/17/2021,01/20,01/20/2019 Surgical History Surgery Date Site/Laterality Comments CHOLECYSTECTOMY Cholecystectomy SECTION SPINE SURGERY lida in back to help with scoliosis JOINT REPLACEMENT Bilateral patient had both knees replaced CARPAL TUNNEL RELEASE Bilateral TRIGGER FINGER RELEASE Left Medical History Medical History Date Comments Hx Other Medical obesity; Commen ts: [facility] 02/17/2014 - Hypertension Hypertension Hx Other Medical dyslipidemia; C omments: [facility] 02/17/2014 - Hx Other Medical osteoarthritis; Comments: [facility] 02/17/2014 - Hx Other Medical scoliosis; Comm ents: [facility] 02/17/2014 - Hx Other Medical anxiety/depress ion; Comments: [facility] 02/17/2014 - Hx Other Medical ; Comm ents: [facility] 02/17/2014 - Hx Other Medical back surgery; C omments: [facility] 02/17/2014 - Hiatal hernia Sleep apnea Motion sickness Irritable bowel syndrome DVT (deep venous thrombosis) (CMS/HCC) (HCC) Type 2 diabetes mellitus ([facility]) Family History Medical History Relation Name Comments Arthritis Father Arthritis; COPD Father Coronary artery disease Father Juancho nary artery disease; Heart failure Father Congestive hea rt failure; Arthritis Mother Arthritis; Hypertension Mother Hypertension; Anxiety disorder Sister 1 Depression Sister 1 Anxiety disorder Sister 2 Depression Sister 2 Skin cancer Sister 2 Anxiety disorder Sister 3 Depression Sister 3 Skin cancer Sister 3 Relation Name Status Comments Brother Alive Father (Age 76) Mother Alive Sister 1 Alive Sister 2 Alive Sister 3 Alive Social History Tobacco Use Types Packs/Day Years Used Date Smoking Tobacco: Never Smokeless Tobacco: Never Tobacco Cessation:Counseling Given: Not Answered Alcohol Use Standard Drinks/Week Comments No 0 (1 standard drink = 0.6 oz pur e alcohol) AUDIT-C Answer Date Recorded Q1: How often do you have a drink containing alc ohol? Never 07/13/2022 Average Number of Drinks Not on file 023 Frequency of Binge Drinking Not on file 06/21 PHQ-2 Answer Date Recorded PHQ-2 Total Score (If total score is 3 or more points, staff should administer the PHQ-9) 0 07/13/2022 Comments No Sex and Gender Information Value Date Recorded Sex Assigned at Not on file Legal Sex Female 7:45 PM VINEYARDIST Gender Identity Not on file Sexual Orientation Not on file Obstetrics History Last Filed Vital Signs Vital Sign Reading Time Taken Comments Blood Pressure 138/88 07/09/2023 10:51 AM CDT Pulse 84 07/09/2023 10:51 AM CDT Temperature 36.3 C (97.3 F) 07/09/2023 10:51 AM CDT Respiratory Rate 16 07/09/2023 10:51 AM CDT Oxygen Saturation 99% 07/09/2023 10:51 AM CDT Inhaled Oxygen Concentration - - Weight 98.4 kg (217 lb) 07/09/2023 10:51 AM CDT Height 157.5 cm (5' 2.01 ) 04/25/2023 3:22 PM CS T Body Mass Index 39.68 04/25/2023 3:22 PM VINEYARDIST Plan of Treatment Health Maintenance Due Date Last Done Comments Cervical Cancer Screening 1960 DTaP/Tdap/Td Vaccine (1 - Tdap) 02/13/1971 Hepatitis B Screening 02/13/1978 Zoster Vaccine (1 of 2) 02/13/2010 Depression Screening 07/14/2023 07/13/2022, 03/27/2022, 05/15/2019 Regular Well Visit/Exam 18-64 07/14/2023 07/13/2022, 03/27/2022 Breast Cancer Screening-Mammogram 09/13/2023 Covid-19 Vaccine (3 - season) 2023 11/02/2020, 10/12/2020 Influenza Vaccine (#1) 2023 , 03/27/2022, 01/17/2021, Additional history exists Colon Cancer Screening-Colonoscopy 01/06/2025 Hepatitis C Screening Completed 07/18/2022 Pneumococcal vaccine <65 Aged Out No longer eligible based on patient's age to complete this topic Medical Devices Implanted Type Area Guard Captain Device Identifier Shelf Expiration Date Model / Serial / Lot [employer] [id number] Attune Cemented Posterior Stabilize Knee Left 4 Component Femoral - [id number] Implanted:Qty: 1 on 06/01/2019 by Ray Antonio MD at [facility] Left: Knee [employer] 04/21/2029 [id number] / / [id number] [employer] [id number] Attune S+ Cement Fix Bearing Knee 4 Baseplate Tibial - [id number] Implanted:Qty: 1 on 06/01/2019 by Ray Antonio MD at [facility] Left: Knee [employer] 02/19/2029 [id number] / / [id number] [employer] 6195-1-001 Cement Bone Simplex Gentamicin High Viscosity 40gm - [id number] Implanted:Qty: 1 on 06/01/2019 by Ray Antonio MD at [facility] Left: Knee [employer] 11/19/2020 6195-1-001 / / [id number] [employer] 6195-1-001 Cement Bone Simplex Gentamicin High Viscosity 40gm - [id number] Implanted:Qty: 1 on 06/01/2019 by Ray Antonio MD at [facility] Left: Knee [employer] 11/19/2020 6195-1-001 / / [id number] [employer] [id number] Attune 8mm Posterior Stabilize Fix Bearing Knee 4 Insert Tibial - [id number] Implanted:Qty: 1 on 06/01/2019 by Ray Antonio MD at [facility] Left: Knee [employer] 02/20/2024 [id number] / / [id number] [employer] Univers Revers Biosync 39mm 24mm Glenosphere Taper Baseplate [id number]-[id number] - [id number] Implanted:Qty: 1 on 12/05/2021 by Mike Zaragoza MD at [facility] [employer] [id number] 07/20/2025 [id number] / / [id number] [employer] Cup Humeral Univers Revers +2 Od36mm Shoulder Left Suture [id number] - [id number] Implanted:Qty: 1 on 12/05/2021 by Mike Zaragoza MD at [facility] [employer] [id number] 11/19/2024 [id number]- 36L [employer] / / [id number] [employer] Insert Humeral Combo Reverse Poly Univers Revers +3x36mm [id number] - [id number] Implanted:Qty: 1 on 12/05/2021 by Mike Zaragoza MD at [facility] [employer] 10/19/2024 [id number] -3 / / [id number] [employer] Univers Revers Shoulder 6 Stem Humeral Sterile Ar-9501-06s - [id number] Implanted:Qty: 1 on 12/05/2021 by Mike Zaragoza MD at [facility] [employer] C1776 02/19/2026 [id number]-[id number] / / [id number] [employer] Baseplate 24mm 10 Deg Full Augment Oblique [id number] - [id number] Implanted:Qty: 1 on 12/05/2021 by Mike Zaragoza MD at [facility] [employer] C1776 05/22/2025 [id number] / / [id number] [employer] Univers Revers 20mm Modular Post Component Glenoid Porous Ar-9582-20 - [id number] Implanted:Qty: 1 on 12/05/2021 by Mike Zaragoza MD at [facility] [employer] C1776 11/19/2025 AR-9582-20 / / [id number] [employer] Univers Revers 5.5mm 40mm Modular Lock Glenoid Peripheral Screw Ar-9563-40 - [id number] Implanted:Qty: 1 on 12/05/2021 by Mike Zaragoza MD at [facility] [employer] C1713 08/20/2023 AR-9563-40 / / [id number] [employer] 5.5mm 24mm Lock Modular Glenoid Screw Bone Ar-9563-24 - [id number] Implanted:Qty: 1 on 12/05/2021 by Mike Zaragoza MD at [facility] [employer] C1713 07/20/2026 AR-9563-24 / / [id number] Procedures Procedure Name Priority Date/Time Associated Diagnosis Comments HEPATITIS C ANTIBODY Routine 07/18/2022 9:39 AM CDT Annual physical exam Prediabetes Fibromyalgia from Last 3 Months or Most Recently Relevant to Health Maintenance Results * Hepatitis C antibody (07/18/2022 9:39 AM CDT) Hep C Ab Nonreactive Nonreactive [facility] Comment: Interpretive Data Nonreactive: Antibodies to HCV not detected. Does NOT exclude the possibility of recent exposure to HCV. Equivocal: Equivocal for HCV antibodies. Supplemental molecular testing will be automatically performed to determine infection status in accordance with current CDC screening recommendations. Reactive: Positive for HCV antibodies. This may represent current or past HCV infection. Supplemental molecular testing will be automatically performed to determine current infection status in accordance with current CDC screening recommendations. Interpretive data was last revised on 2019. Blood 07/18/2022 9:39 AM CDT 07/18/2022 2:17 PM CDT us Elizabeth Abel MD LAB MICROBIOLOGY - GENERAL O RDERABLES Final Result [facility] [id number] [address] [place] [address] from Last 3 Months or Most Recently Relevant to Health Maintenance Insurance [address] [place] [address] [employer]IC[employer] [facility] [address] [place], [place] [id number] [employer] PPO DR [id number] [place] [id number] Advance Directives For more information, please contact: [phone] * Full Code (Latest Code Status on File) Date Activated Date Inactivated Comments 12/05/2021 11:07 AM 12/05/2021 6:01 PM * Full Code Date Activated Date Inactivated Comments 06/01/2019 1:56 PM 06/02/2019 7:34 PM Care Teams Television Producer Relationship Specialty Start Date End Date Elizabeth Abel MD PCP - General Family Practice 03/27/22 Ray Antonio MD Surgeon Orthopedic Surgery 06/02/19 Maribell Robles PA Physician Dish Up Person Orthopedic Surgery 12/05/21
--- OUTSIDE RECORDS SUMMARY | 2024-06-01 13:51 | XMS_ITS | Referral Summary ---
Author Organization [facility] [address] Address [address] [place] [address] Care Team Providers Care Records Administrator Name Role Phone Ray Antonio MD Unavailable Maribell Robles Unavailable [phone] Elizabeth Abel MD Primary Care Provider [phone] Allergies Active Allergy Reactions Criticality Noted Date [...] Due: Up-to-date. Will request colonoscopy results from [facility] Dietary and exercise recommendations given today. Recommend [...] months Assessment & Plan (03/27/2022 12:39 PM WELLFIELD TECHNICIAN): Chronic and stable. PHQ 9 score is [...] months Assessment & Plan (03/27/2022 12:39 PM WELLFIELD TECHNICIAN): Chronic and stable. Continue current medication (gabapentin). Prediabetes 03/27/2022 Assessment & Plan (02/13/2023 3:13 PM CDT): Chronic and stable. Will repeat labs 03/2023 to monitor for changes off Victoza. Patient was previously taking medication for weight loss Assessment & Plan (07/13/2022 4:14 PM CDT): Chronic and stable. Continue current medication. Labs ordered today. Follow-up 3 months Assessment & Plan (03/27/2022 12:39 PM WELLFIELD TECHNICIAN): Chronic and stable. Continue current medication. Will request lab results from previous PCP. Follow-up 3 months at well visit Gastroesophageal reflux disease 03/27/2022 Assessment & Plan (04/25/2023 3:58 PM WELLFIELD TECHNICIAN): History of hiatal hernia. Chronic and stable. Continue current medication. Will monitor Assessment & Plan (03/27/2022 12:40 PM WELLFIELD TECHNICIAN): Chronic. History of hiatal hernia. Chronic and stable. Continue current medication. Will monitor Feared condition not demonstrated 03/27/2022 Assessment & Plan (03/27/2022 12:43 PM WELLFIELD TECHNICIAN): Concern for memory loss. Mini cog completed [...] (11/16/2021): Added automatically from request for surgery [id number] Aftercare following left knee joint replacement surgery 07/21/2019 Primary osteoarthritis of left knee 05/15/2019 Overview (05/15/2019): Added automatically from request for surgery [id number] Abnormal stress test 01/16/2017 Exertional dyspnea 01/16/2017 Class 3 severe obesity due t o excess calories with serious comorbidity and body mass index (BMI) of 40.0 to 44.9 in adult 12/25/2016 Assessment & Plan (04/25/2023 3:57 PM WELLFIELD TECHNICIAN): BMI:42 (Obese) Dietary and exercise recommendations reiterated [...] weeks Assessment & Plan (03/27/2022 12:37 PM WELLFIELD TECHNICIAN): Doing well. BMI:38.05 (Obese) Dietary and exercise [...] diet. Assessment & Plan (04/25/2023 3:54 PM WELLFIELD TECHNICIAN): Chronic and elevated. Goal < 130/80 Continue [...] medication Assessment & Plan (03/27/2022 12:32 PM WELLFIELD TECHNICIAN): Chronic and stable. Minimally above goal <130/80 off medication. Will Continue to monitor Resolved Problems Problem Noted Date Diagnosed Date Resolved Date Biceps tendonitis on left 11/16/2021 Overview (11/16/2021): Added automatically from request for surgery [id number] Immunizations Name Administration Dates Next Due Influenza, Quadrivalent, Spl it, Preservative Free, Intramuscular 02/13/2023,03/27/2022,01/17/2021,01/20,01/20/2019 Social History Tobacco Use Types Packs/Day Years [...] on file Legal Sex Female 7:45 PM WELLFIELD TECHNICIAN Gender Identity Not on file Sexual Orientation Not on file Last Filed Vital Signs Vital Sign Reading [...] Body Mass Index 39.68 04/25/2023 3:22 PM WELLFIELD TECHNICIAN Plan of Treatment Not on file Medical Devices Implanted Type Area Pencil Inspector Device Identifier Shelf Expiration Date Model / Serial / Lot DepFlip Flop Shops Orthopaedics Inc [id number] Attune Cemented Posterior Stabilize Knee Left 4 Component Femoral - [id number] Implanted:Qty: 1 on 06/01/2019 by Ray Antonio MD at [facility] Left: Knee Depuy [employer] Inc 04/21/2029 [id number] / / [id number] Depuy [employer] [id number] Attune S+ Cement Fix Bearing Knee 4 Baseplate Tibial - [id number] Implanted:Qty: 1 on 06/01/2019 by Ray Antonio MD at [facility] Left: Knee [employer]uy [employer] 02/19/2029 [id number] / / [id number] [employer] 6195-1-001 Cement Bone Simplex Gentamicin High Viscosity 40gm - [id number] Implanted:Qty: 1 on 06/01/2019 by Ray Antonio MD at [facility] Left: Knee [employer]issie [employer] 11/19/2020 6195-1-001 / / [id number] [employer] 6195-1-001 Cement Bone Simplex Gentamicin High Viscosity 40gm - [id number] Implanted:Qty: 1 on 06/01/2019 by Ray Antonio MD at [facility] Left: Knee [employer] 11/19/2020 6195-1-001 / / [id number] [employer]uy [employer] [id number] Attune 8mm Posterior Stabilize Fix Bearing Knee 4 Insert Tibial - [id number] Implanted:Qty: 1 on 06/01/2019 by Ray Antonio MD at [facility] Left: Knee [employer]uy [employer] 02/20/2024 [id number] / / [id number] [employer] Univers Revers Biosync 39mm 24mm Glenosphere Taper Baseplate Fz-[id number] - [id number] Implanted:Qty: 1 on 12/05/2021 by Mike Zaragoza MD at [facility] [employer] [id number] 07/20/2025 [id number] / / [id number] [employer] Cup Humeral Univers Revers +2 Od36mm Shoulder Left Suture [id number] - [id number] Implanted:Qty: 1 on 12/05/2021 by Mike Zaragoza MD at [facility] [employer] [id number] 11/19/2024 [id number]-[id number]- 36L PROSTHETIC AIDES TEACHER / / [id number] [employer] Insert Humeral Combo Reverse Poly Univers Revers +3x36mm Sz-[id number] - [id number] Implanted:Qty: 1 on 12/05/2021 by Mike Zaragoza MD at [facility] [employer] 10/19/2024 [id number] -3 / / [id number] [employer] Univers Revers Shoulder 6 Stem Humeral Sterile Ar-9501-06s - [id number] Implanted:Qty: 1 on 12/05/2021 by Mike Zaragoza MD at [facility] [employer] C1776 02/19/2026 AR-[id number] / / [id number] [employer] Baseplate 24mm 10 Deg Full Augment Oblique [id number] - [id number] Implanted:Qty: 1 on 12/05/2021 by Mike Zaragoza MD at [facility] [employer] C1776 05/22/2025 [id number] / / [id number] [employer] Univers Revers 20mm Modular Post Component Glenoid Porous Ar-9582-20 - [id number] Implanted:Qty: 1 on 12/05/2021 by Mike Zaragoza MD at [facility] [employer] C1776 11/19/2025 AR-9582-20 / / [id number] [employer] Univers Revers 5.5mm 40mm Modular Lock Glenoid Peripheral Screw Ar-9563-40 - [id number] Implanted:Qty: 1 on 12/05/2021 by Mike Zaragoza MD at [facility] [employer] C1713 08/20/2023 AR-9563-40 / / [id number] [employer] 5.5mm 24mm Lock Modular Glenoid Screw Bone Ar-9563-24 - [id number] Implanted:Qty: 1 on 12/05/2021 by Mike Zaragoza MD at [facility] [employer] C1713 07/20/2026 AR-9563-24 / / [id number] Procedures Procedure Name Priority Date/Time Associated Diagnosis [...] GENERAL O RDERABLES Final Result [facility] [id number] [address] Wong [place] [address] from Last 3 Months or Most Recently Relevant to Health Maintenance Insurance [address] [place] [address] [employer] MEDICARE PPO [address] [place] [id number] [employer] MEDICARE PPO [address] [place] [phone] Advance Directives For more information, please contact: [phone] * Full Code (Latest Code Status on File) Date Activated Date Inactivated Comments 12/05/2021 11:07 AM 12/05/2021 6:01 PM * Full Code Date Activated Date Inactivated Comments 06/01/2019 1:56 PM 06/02/2019 7:34 PM Care Teams Records Administrator Relationship Specialty Start Date End Date Elizabeth Abel MD PCP - General Family Practice 03/27/22 Ray Antonio MD Surgeon Orthopedic Surgery 06/02/19 Maribell Robles PA Physician Ham Passer Orthopedic Surgery 12/05/21
--- OUTSIDE RECORDS SUMMARY | 2024-06-01 13:51 | XMS_ITS | Encounter Summary ---
Author Organization [facility] Care Team Providers Care Manager Technical Support Name Role Phone Marlene Cary MD Primary Care Provider + Alicia Rome MD Primary Care Provide r Chelsie Myrick NP Primary Care Provider [phone] Ray Antonio MD Unavailable [phone] Maribell Robles Unavailable [phone] Elizabeth Abel MD Primary Care Provider [phone] Encounter Details Date Type Department Care Team (Latest Contact Info) Description 12/01/2016 Orders Only [facility]IN[facility] ProviderRadha MD [address] [place] [address] Social History Tobacco Use Types Packs/Day Years Used Date Smoking Tobacco: Former Cigarettes Q uit: 04/22/1976 Alcohol Use Standard Drinks/Week Comments No 0 (1 standard drink = 0.6 oz pur e alcohol) Comments Unknown Sex and Gender Information Value Date Recorded Sex Assigned at Not on file 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 Gender Identity Not on file Sexual Orientation Not on file documented as of this encounter Plan of Treatment Not on file documented as of this encounter Procedures Procedure Name Priority Date/Time Associated Diagnosis Comments SCAN - LABS 12/03/2016 12:00 AM CDT documented in this encounter Results * SCAN - LABS (12/03/2016 12:00 AM CDT) Narrative 12/03/2016 12:00 AM CDT Ordered by an unspecified [...] documented as of this encounter Care Teams Manager Technical Support Relationship Specialty Start Date End Date Marlene Cary MD [address] [place] [address] PCP - General 02/17/14 01/15/17 Alicia Rome MD [address] [place] [address] PCP - General Family Medicine 01/16/17 05/05/19 Chelsie Myrick NP [address] [place] [address] PCP - General Nurse Practitioner 05/06/19 03/26/22 Elizabeth Abel MD [address] [place] [address] PCP - General Family Practice 03/27/22 Ray Antonio MD [address] [place] [address] Surgeon Orthopedic Surgery 06/02/19 Maribell Robles PA [address] [facility] [address] [place] [address] Physician Meter Technician Orthopedic Surgery 12/05/21 documented as of this encounter
--- OUTSIDE RECORDS SUMMARY | 2024-06-01 13:53 | XMS_ITS | Continuity of Care Document ---
Author Organization [facility] Address [address] [place] [address] Phone Care Team Providers Care Round Up Ring Hand Name Role Phone Ztest, Provider Unavailable Unavailable [...] Diagnoses Date Provider Providers Copied on Encounter [facility], [address], [place], [place], [address] , tel: [phone] [facility] No Information 8 Ztest Provider. [address] [facility], 4th Floor, [place], [place], [facility], . tel:[phone] [facility], [address], [place], [place], [address] , tel: [phone] Conversion Department No Information 201 1 Conversion Doctor. [address] [place], [place], [facility], . [facility], [address], [place], [place], [address] , tel: [phone] [facility] HEALTH EXAM-GROUP SURVEY Sep-3 0-200 5 No Information [facility], [address], [place], [place], [address] , tel: [phone] [facility] BENIGN HYPERTENSION Sep-1 2-200 5 No Information [facility], [address], [place], [place], [address] , tel: [phone] [facility] LUMBAGO 5 Conversion Doctor. [facility] [place], [address], . [employer], [address], [place], [place], [address] , tel: [phone] [facility] LOC PRIM OSTEOART-L/LEG 5 No Information [facility], [address], [place], [place], [address] , [place] tel: [phone] [facility] OSTEOARTHROS NOS-UNSPEC 5 No Information [employer], [address], [place], [place], [address] , [place] tel: [phone] [facility] DEPRESSIVE DISORDER NECLUMB/LUMBOSAC DISC DEGENSPINAL STENOSIS-LUMBAR 4 No Information [employer], [address], [place], [place], [address] , [place] tel: [phone] [facility] HYPERTENSION NOS 4 Conversion Doctor. [facility] [place], [address], . [employer], [address], [place], [place], [address] , tel: [phone] [facility] POLYDIPSIAACUTE SINUSITIS NOS 4 Conversion Doctor. [facility] [place], [address], . [employer], [address], [place], [place], [address] , tel: [phone] [facility] IRRITABLE BOWEL SYNDROME 3 Conversion Doctor. [facility] [place], [address], . Family History Family Member Type Diagnosis Age At Onset No Information Payers Payer name Insurance type Covered libertarian ID Authoriza tion(s) No Information Social History [...]
[2024-06-01 14:06] VITALS: BP 109/73; PULSE 85; RESP 24; TEMP 37.3; O2SAT 100
[2024-06-01 14:11] LABS: EDCOVIDSCREEN Negative (Negative); EDINFLUASCREEN Positive (Negative); EDINFLUBSCREEN Negative (Negative)
--- NOTE | 2024-06-01 14:18 | ED.URI ---
HPI - URI/Sore Throat General Chief Complaint: Upper Respiratory Infection Stated Complaint: head congestion/labored breathing Source: patient and RN notes reviewed Mode of arrival: ambulatory Limitations: no limitations History of Present Illness HPI Narrative: 64-year-old female with a history of hypertension diabetes presented for complaint of headache, body aches, sinus pressure/congestion, cough, fever/chills. onset 5 days. Denies sob, wheezing, n/v/d. grandson had similar symptoms prior to her getting sick. Does not check blood sugars. MD elicited complaint: cough Related Data Allergies Allergy/AdvReac Type Severity Reaction Status Date / Time adhesive tape Allergy Intermediate REDNESS Verified 06/01/24 13:52 adhesive Allergy Unknown Skin Verified 06/01/24 13:52 irritation celecoxib Allergy Unknown Dizziness Verified 06/01/24 13:52 latex Allergy Unknown Skin Verified 06/01/24 13:52 irritation Review of Systems Review of Systems: Per HPI [facility] Past Medical History Medical History (Updated 06/01/24 @ 14:23 by Lorrie Butts APRN) Normal colonoscopy December 2014 Shingles 2016 Osteopenia Anxiety and depression Hyperlipidemia Hiatal hernia Obstructive sleep apnea Moderate obstructive sleep apnea noted sleep study from June 2015 recommending CPAP of 12 but patient refuses CPAP Obesity Essential hypertension Type 2 diabetes mellitus Chronic kidney disease Noted since January 2019 Acute kidney injury Fibromyalgia Surgical History Surgical History History of cardiac catheterization No evidence of coronary artery disease noted on cardiac catheterization January 2017 History of lumbar surgery 2003 History of tubal ligation 1994 History of section 1985 History of bilateral carpal tunnel release December 2017 Status post trigger finger release Left thumb History of total bilateral knee replacement Right knee April 2017 Family History Family History Sibling Depression Arthritis Bipolar disorder Father Hypertension COPD (chronic obstructive pulmonary disease) Arthritis CHF (congestive heart failure) Coronary artery disease Gout Mother Hypertension Arthritis Grandparent Dementia Social History Social History (Updated 08/20/23 @ 14:28 by Gladis Mauricio MA) Smoking status: Never smoker Second hand tobacco smoke exposure: No Smoking end date: 04/22/86 Alcohol intake: never Substance use: never Living arrangements: alone Occupation/Education: unemployed Additional occupation/education comments: She reports that she has been unable to work due to her fibromyalgia. 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 Gender identity (if verbalized by the patient): Female Spiritual care concerns: No Agree to blood products: Yes Exam Narrative: GENERAL: Ill-appearing, nontoxic no acute distress. EYES: PERRLA, conjunctivae clear ENT: Mucous membranes moist. TM pearly martin with dull light reflex bilaterally; no tragal tenderness. no drooling, no hoarseness, no trismus, uvula midline. No tripod positioning, muffled voice, soft palate or pharyngeal wall bulging NECK: Supple. No lymphadenopathy CHEST: Clear to auscultation, breath sounds equal. No wheezing, rhonchi, rales, or stridor. No respiratory distress, speaks in full sentences. HEART: Regular rate and rhythm. No murmur heard. SKIN: Warm, dry, no rash. NEURO: Alert and oriented x3. PSYCH: Normal mood and affect Course Course Emergency Course: Patient is aware of diagnosis, understands and agrees to treatment plan. Anticipatory guidance given. Patient agrees to follow-up as directed and is aware of reasons to seek care at the emergency department. Portions of this record may have been created with voice recognition software Level of Care: Express Care Visit Vital Signs Vital signs: Vital Signs Temperature 99.2 F 06/01/24 14:06 Pulse Rate 85 06/01/24 14:06 Respiratory Rate 24 H 06/01/24 14:06 Blood Pressure 109/73 06/01/24 14:06 Pulse Oximetry 100 06/01/24 14:06 Oxygen Delivery Room Air 06/01/24 14:06 Temperature 99.2 F 06/01/24 14:06 Pulse Rate 85 06/01/24 14:06 Respiratory Rate 24 H 06/01/24 14:06 Blood Pressure 109/73 06/01/24 14:06 Pulse Oximetry 100 06/01/24 14:06 Oxygen Delivery Room Air 06/01/24 14:06 reviewed MDM - URI/Sore Throat MDM Narrative Medical decision making narrative: Positive flu. Discussed physical exam findings. Advised supportive measures and signs/symptoms to go to the ER. Pt is appropriate for outpt treatment and f/u. Differential Diagnosis Differential diagnosis: Likely upper respiratory infection, sinusitis and viral infection Lab Data Labs: Lab Results 06/01/24 Range/Units 13:48 POC Influenza A Ag Positive (Negative) POC Influenza B Ag Negative (Negative) POC SARS CoV-2 Ag Negative (Negative) Discharge Plan Discharge Clinical Impression: Influenza Patient Disposition: Home, Self-Care Condition: Stable Instructions: Antibiotic Form, Influenza (ED) Additional Instructions: Influenza positive You should avoid crowds until you are fever free for 24 hours without the use of fever reducing medications, or the symptoms are improved Rest. Drink plenty of fluids. Tylenol 1000mg every 8 hours as needed for pain/fever Flonase spray and Zyrtec (or Claritin/Veda) for sinus pressure/congestion over the counter Cough syrup may cause drowsiness; avoid driving or take it at night time. Follow up with your primary care provider as needed Go to the ER for worsening symptoms or concerns Patient Language: Sami Prescriptions: No Action lisinopril 5 mg tablet 5 mg PO DAILY Qty: 90 3RF hydrochlorothiazide 25 mg tablet 25 mg PO DAILY Qty: 90 3RF duloxetine 60 mg capsule,delayed release(DR/EC) 60 mg PO DAILY Qty: 90 3RF duloxetine 30 mg capsule,delayed release(DR/EC) 30 mg PO DAILY Qty: 90 3RF Rx Instructions: To take with 60mg to = 90mg daily metformin 500 mg tablet 500 mg PO BID Qty: 180 3RF omeprazole 40 mg capsule,delayed release(DR/EC) See Rx Instructions .ROUTE .COMPLEX Qty: 90 3RF Dose Instruction: TAKE 1 CAPSULE BY MOUTH EVERY DAY Rx Instructions: TAKE 1 CAPSULE BY MOUTH EVERY DAY gabapentin 300 mg capsule See Rx Instructions .ROUTE .COMPLEX Qty: 180 3RF Dose Instruction: TAKE 3 CAPSULES BY MOUTH 2 TIMES A DAY. Rx Instructions: TAKE 3 CAPSULES BY MOUTH 2 TIMES A DAY. meloxicam 15 mg tablet 15 mg PO DAILY PRN (Reason: arthritis pain) Qty: 90 0RF cyanocobalamin (vitamin B-12) 1,000 mcg tablet, sublingual 1,000 mcg sublingual DAILY Qty: 90 0RF Follow-up/Referrals: Chelsie Myrick APRN [Primary Care Provider] - Time of Disposition: 14:23
== END 2024-06-01 14:37 | disposition home or self-care (01) ==
PROVIDERS: Emergency Provider Nurse Practitioner Family; PCP Nurse Practitioner Adult Health
DX: J10.1 Influenza due to other identified influenza virus with other respiratory manifestations (principal); Z20.822 Contact with and (suspected) exposure to COVID-19; Z87.891 Personal history of nicotine dependence; E78.5 Hyperlipidemia, unspecified; E11.9 Type 2 diabetes mellitus without complications; Z79.4 Long term (current) use of insulin; I12.9 Hypertensive chronic kidney disease with stage 1 through stage 4 chronic kidney disease, or unspecified chronic kidney disease; N18.9 Chronic kidney disease, unspecified; M79.7 Fibromyalgia; E66.9 Obesity, unspecified; Z68.41 Body mass index [BMI] 40.0-44.9, adult; M85.80 Other specified disorders of bone density and structure, unspecified site; G47.33 Obstructive sleep apnea (adult) (pediatric); Z91.199 Patient's noncompliance with other medical treatment and regimen due to unspecified reason; Z96.653 Presence of artificial knee joint, bilateral
CPT/HCPCS: 87426; 87804; 99212; G0463

== ENCOUNTER 2024-06-23 09:40 | Outpatient (CLI) | payer MEDICARE, MEDICAID, SELFPAY | END 2024-06-23 09:41 | disposition home or self-care (01) | PROVIDERS: PCP Nurse Practitioner Adult Health; Visit Provider Nurse Practitioner Adult Health | DX: R09.82 Postnasal drip (principal); R41.3 Other amnesia | CPT/HCPCS: 70551 ==

== ENCOUNTER 2024-07-10 07:53 | Outpatient (CLI) | payer MEDICARE, MEDICAID, SELFPAY ==
--- OUTSIDE RECORDS SUMMARY | 2024-07-10 08:00 | XMS_ITS | Encounter Summary ---
Author Organization [facility] Address [address] [place] [address] Phone Care Team Providers Care V Belt Finisher Name Role Phone Marlene Cary MD Primary Care Provider + Alicia Rome MD Primary Care Provide r Chelsie Myrick NP Primary Care Provider [phone] Ray Antonio MD Unavailable Maribell Robles Unavailable Elizabeth Abel MD Primary Care Provider [phone] Encounter Details Date Type Department Care Team (Late st Contact Info) Description 12/27/2014 Orders Only [facility] [address] [place] [address] Scanning, Provider Social History Tobacco Use Types Packs/Day Years Used Date Smoking Tobacco: Former Cigarettes Q uit: 04/22/1976 Alcohol Use Standard Drinks/Week Comments No 0 (1 standard drink = 0.6 oz pur e alcohol) Comments Unknown Sex and Gender Information Value Date Recorded Sex Assigned at Not on file 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 Gender Identity Not on file Sexual Orientation [...] documented as of this encounter Care Teams V Belt Finisher Relationship Specialty Start Date End Date Marlene Cary MD [address] [place] [address] PCP - General 02/17/14 01/15/17 Alicia Rome MD [address] [place] [address] PCP - General Family Medicine 01/16/17 05/05/19 Chelsie Myrick NP [address] [place] [address] PCP - General Nurse Practitioner 05/06/19 03/26/22 Elizabeth Abel MD [address] [place] [address] PCP - General Family Practice 03/27/22 Ray Antonio MD [address] [place] [address] Surgeon Orthopedic Surgery 06/02/19 Maribell Robles PA [address] [place] [address] Physician Seed Analyst Orthopedic Surgery 12/05/21 documented as of this encounter
--- OUTSIDE RECORDS SUMMARY | 2024-07-10 08:00 | XMS_ITS | Encounter Summary ---
Author Organization [facility] Care Team Providers Care Director Of Laboratory Operations Name Role Phone Alicia Rome MD Primary Care Provide r Chelsie Myrick NP Primary Care Provider [phone] Ray Antonio MD Unavailable [phone] Maribell Robles Unavailable [phone] Elizabeth Abel MD Primary Care Provider [phone] Encounter Details Date Type Department Care Team (Latest Contact Info) Description 12/31/2017 Orders Only [facility] CLINCONV Provider, MD Radha [address] [place] [address] Social History Tobacco Use Types Packs/Day Years Used Date Smoking Tobacco: Former Smokeless Tobacco: Never Alcohol Use Standard Drinks/Week Comments No 0 (1 standard drink = 0.6 oz pur e alcohol) Comments Unknown Sex and Gender Information Value Date Recorded Sex Assigned at Not on file 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 Sex Female 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 Gender Identity Not on file Sexual Orientation [...] documented as of this encounter Care Teams Director Of Laboratory Operations Relationship Specialty Start Date End Date Alicia Rome MD [address] [place] [address] PCP - General Family Medicine 01/16/17 05/05/19 Chelsie Myrick NP [address] [place] [address] PCP - General Nurse Practitioner 05/06/19 03/26/22 Elizabeth Abel MD [address] [place] [address] PCP - General Family Practice 03/27/22 Ray Antonio MD [address] [place] [address] Surgeon Orthopedic Surgery 06/02/19 Maribell Robles PA [address] [place] [address] Physician Recycling Coordinator Orthopedic Surgery 12/05/21 documented as of this encounter
--- OUTSIDE RECORDS SUMMARY | 2024-07-10 08:00 | XMS_ITS | Clinical Summary ---
Author Organization [facility] [address] Address [address] [place] [address] Care Team Providers Care Metal Bonding Assembler Name Role Phone Ray Antonio MD Unavailable [phone] Maribell Robles Unavailable [phone] Elizabeth Abel MD Primary Care Provider [phone] Allergies Active Allergy Reactions Criticality Noted Date [...] Due: Up-to-date. Will request colonoscopy results from [facility] Dietary and exercise recommendations given [...] months Assessment & Plan (03/27/2022 12:39 PM PROSTHETIC LAB TECHNICIAN): Chronic and stable. PHQ 9 score [...] months Assessment & Plan (03/27/2022 12:39 PM PROSTHETIC LAB TECHNICIAN): Chronic and stable. Continue current medication (gabapentin). Prediabetes 03/27/2022 Assessment & Plan (02/13/2023 3:13 PM CDT): Chronic and stable. Will repeat labs 03/2023 to monitor for changes off Victoza. Patient was previously taking medication for weight loss Assessment & Plan (07/13/2022 4:14 PM CDT): Chronic and stable. Continue current medication. Labs ordered today. Follow-up 3 months Assessment & Plan (03/27/2022 12:39 PM PROSTHETIC LAB TECHNICIAN): Chronic and stable. Continue current medication. Will request lab results from previous PCP. Follow-up 3 months at well visit Gastroesophageal reflux disease 03/27/2022 Assessment & Plan (04/25/2023 3:58 PM PROSTHETIC LAB TECHNICIAN): History of hiatal hernia. Chronic and stable. Continue current medication. Will monitor Assessment & Plan (03/27/2022 12:40 PM PROSTHETIC LAB TECHNICIAN): Chronic. History of hiatal hernia. Chronic and stable. Continue current medication. Will monitor Feared condition not demonstrated 03/27/2022 Assessment & Plan (03/27/2022 12:43 PM PROSTHETIC LAB TECHNICIAN): Concern for memory loss. Mini cog [...] (11/16/2021): Added automatically from request for surgery [id number] Aftercare following left knee joint replacement surgery 07/21/2019 Primary osteoarthritis of left knee 05/15/2019 Overview (05/15/2019): Added automatically from request for surgery [id number] Abnormal stress test 01/16/2017 Exertional dyspnea 01/16/2017 Class 3 severe obesity due t o excess calories with serious comorbidity and body mass index (BMI) of 40.0 to 44.9 in adult 12/25/2016 Assessment & Plan (04/25/2023 3:57 PM PROSTHETIC LAB TECHNICIAN): BMI:42 (Obese) Dietary and exercise recommendations [...] weeks Assessment & Plan (03/27/2022 12:37 PM PROSTHETIC LAB TECHNICIAN): Doing well. BMI:38.05 (Obese) Dietary and [...] diet. Assessment & Plan (04/25/2023 3:54 PM PROSTHETIC LAB TECHNICIAN): Chronic and elevated. Goal < 130/80 [...] medication Assessment & Plan (03/27/2022 12:32 PM PROSTHETIC LAB TECHNICIAN): Chronic and stable. Minimally above goal <130/80 off medication. Will Continue to monitor Resolved Problems Problem Noted Date Diagnosed Date Resolved Date Biceps tendonitis on left 11/16/2021 Overview (11/16/2021): Added automatically from request for surgery [id number] Immunizations Immunization Administration Dates Next Due Influenza, Quadrivalent, Spl it, Preservative Free, Intramuscular 02/13/2023,03/27/2022,01/17/2021,01/20,01/20/2019 Surgical History Surgery Date Site/Laterality Comments CHOLECYSTECTOMY Cholecystectomy SECTION SPINE SURGERY lida in back to help with scoliosis JOINT REPLACEMENT Bilateral patient had both knees replaced CARPAL TUNNEL RELEASE Bilateral TRIGGER FINGER RELEASE Left Medical History Medical History Date Comments Hx Other Medical obesity; Commen ts: [facility] 02/17/2014 - Hypertension Hypertension Hx Other Medical dyslipidemia; C omments: [facility] 02/17/2014 - Hx Other Medical osteoarthritis; Comments: [facility] 02/17/2014 - Hx Other Medical scoliosis; Comm ents: [facility] 02/17/2014 - Hx Other Medical anxiety/depress ion; Comments: [facility] 02/17/2014 - Hx Other Medical ; Comm ents: [facility] 02/17/2014 - Hx Other Medical back surgery; C omments: [facility] 02/17/2014 - Hiatal hernia Sleep apnea Motion sickness Irritable bowel syndrome DVT (deep venous thrombosis) (HCC) Type 2 diabetes mellitus (HCC) Family History Medical History Relation Name Comments [...] on file Legal Sex Female 7:45 PM PROSTHETIC LAB TECHNICIAN Gender Identity Not on file Sexual [...] Body Mass Index 39.68 04/25/2023 3:22 PM PROSTHETIC LAB TECHNICIAN Plan of Treatment Health Maintenance Due Date [...] this topic Medical Devices Implanted Type Area Manager Global Communications Device Identifier Shelf Expiration Date Model / Serial / Lot DepGlamit Orthopaedics Inc [id number] Attune Cemented Posterior Stabilize Knee Left 4 Component Femoral - [id number] Implanted:Qty: 1 on 06/01/2019 by Ray Antonio MD at [facility] Left: Knee [employer]uy Orthopaed[employer] Inc 04/21/2029 [id number] / / [id number] Depuy Orthopaedics Inc [id number] Attune S+ Cement Fix Bearing Knee 4 Baseplate Tibial - [id number] Implanted:Qty: 1 on 06/01/2019 by Ray Antonio MD at [facility] Left: Knee [employer]uy Orth[employer] Inc 02/19/2029 [id number] / / [id number] [employer] 6195-1-001 Cement Bone Simplex Gentamicin High Viscosity 40gm - [id number] Implanted:Qty: 1 on 06/01/2019 by Ray Antonio MD at [facility] Left: Knee [employer] 11/19/2020 6195-1-001 / / [id number] [employer] 6195-1-001 Cement Bone Simplex Gentamicin High Viscosity 40gm - [id number] Implanted:Qty: 1 on 06/01/2019 by Ray Antonio MD at [facility] Left: Knee [employer] 11/19/2020 6195-1-001 / / [id number] Depuy Orthopaed[employer] Inc [id number] Attune 8mm Posterior Stabilize Fix Bearing Knee 4 Insert Tibial - [id number] Implanted:Qty: 1 on 06/01/2019 by Ray Antonio MD at [facility] Left: Knee [employer]uy [employer] Inc 02/20/2024 [id number] / / [id number] Arthrex Inc Univers Revers Biosync 39mm 24mm Glenosphere Taper Baseplate Qu-6247-8330 - [id number] Implanted:Qty: 1 on 12/05/2021 by Mike Zaragoza MD at [facility] [employer] [id number] 07/20/2025 PM-[id number] / / [id number] [employer] Cup Humeral Univers Revers +2 Od36mm Shoulder Left Suture Sn-8707l-03gfjj - [id number] Implanted:Qty: 1 on 12/05/2021 by Mike Zaragoza MD at [facility] [employer] [id number] 11/19/2024 AR-9502F- 36L 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 HOUSECLEANER / / [id number] [employer] Insert Humeral Combo Reverse Poly Univers Revers +3x36mm Gv-9428-6877-3 - [id number] Implanted:Qty: 1 on 12/05/2021 by Mike Zaragoza MD at [facility] [employer] 10/19/2024 XW-[id number] -3 / / [id number] Ar[employer] Inc Univers Revers Shoulder 6 Stem Humeral Sterile Ar-9501-06s - [id number] Implanted:Qty: 1 on 12/05/2021 by Mike Zaragoza MD at [facility] [employer] C1776 02/19/2026 AR-9501-06S / / [id number] Ar[employer] Inc Baseplate 24mm 10 Deg Full Augment Oblique Bz-9852-0934 - [id number] Implanted:Qty: 1 on 12/05/2021 by Mike Zaragoza MD at [facility] [employer] C1776 05/22/2025 MD-5025-2566 / / [id number] Ar[employer] Inc Univers Revers 20mm Modular Post Component Glenoid Porous Ar-9582-20 - [id number] Implanted:Qty: 1 on 12/05/2021 by Mike Zaragoza MD at [facility] [employer] C1776 11/19/2025 AR-9582-20 / / [id number] [employer] Univers Revers 5.5mm 40mm Modular Lock Glenoid Peripheral Screw Ar-9563-40 - [id number] Implanted:Qty: 1 on 12/05/2021 by Mike Zaragoza MD at [facility] [employer] C1713 08/20/2023 AR-9563-40 / / [id number] [employer] Inc 5.5mm 24mm Lock Modular Glenoid Screw Bone Ar-9563-24 - [id number] Implanted:Qty: 1 on 12/05/2021 by Mike Zaragoza MD at [facility] [employer] C1713 07/20/2026 AR-9563-24 / / [id number] Procedures Procedure Name Priority Date/Time Associated Diagnosis [...] 9:39 AM CDT 07/18/2022 2:17 PM CDT Elizabeth Abel MD LAB MICROBIOLOGY - GENERAL O RDERABLES Final Result [facility] [id number] Department [place] [address] from Last 3 Months or Most Recently Relevant to Health Maintenance Insurance [address] [place] [address] [employer] CHOICE MEDICARE PPO DR [address] [place], [place] [id number] [employer] CHOICE MEDICARE PPO [address] [place] [address] [address] [place] [phone] Advance Directives For more information, please contact: [phone] * Full Code (Latest Code Status on File) Date Activated Date Inactivated Comments 12/05/2021 11:07 AM 12/05/2021 6:01 PM * Full Code Date Activated Date Inactivated Comments 06/01/2019 1:56 PM 06/02/2019 7:34 PM Care Teams Metal Bonding Assembler Relationship Specialty Start Date End Date Elizabeth Abel MD PCP - General Family Practice 03/27/22 Ray Antonio MD Surgeon Orthopedic Surgery 06/02/19 Maribell Robles PA Physician Steam Fitter Helper Orthopedic Surgery 12/05/21
--- OUTSIDE RECORDS SUMMARY | 2024-07-10 08:00 | XMS_ITS | Encounter Summary ---
Author Organization [facility] Facility Care Team Providers Care Morning News Anchor Name Role Phone Alicia Rome MD Primary Care Provide r Chelsie Myrick NP Primary Care Provider [phone] Ray Antonio MD Unavailable [phone] Maribell Robles Unavailable [phone] Elizabeth Abel MD Primary Care Provider [phone] Encounter Details Date Type Department Care Team (Latest Contact Info) Description 03/21/2018 Orders Only [facility] CLINCONV Provider, MD Radha [address] [place] [address] Social History Tobacco Use Types Packs/Day Years Used Date Smoking Tobacco: Former Smokeless Tobacco: Never Alcohol Use Standard Drinks/Week Comments No 0 (1 standard drink = 0.6 oz pur e alcohol) Comments Unknown Sex and Gender Information Value Date Recorded Sex Assigned at Not on file Legal Sex Female 7:45 PM DIRECTOR INFORMATION SECURITY Gender Identity Not on file Sexual Orientation Not on file documented as of this encounter Plan of Treatment Not on file documented as of this encounter Procedures Procedure Name Priority Date/Time Associated Diagnosis Comments SCAN - LABS 03/24/2018 12:00 AM DIRECTOR INFORMATION SECURITY documented in this encounter Results * SCAN - LABS (03/24/2018 12:00 AM DIRECTOR INFORMATION SECURITY) Narrative 03/24/2018 12:00 AM DIRECTOR INFORMATION SECURITY Ordered by an unspecified provider. us Historical [...] documented as of this encounter Care Teams Morning News Anchor Relationship Specialty Start Date End Date Alicia Rome MD [address] [place] [address] PCP - General Family Medicine 01/16/17 05/05/19 Chelsie Myrick NP [address] [place] [address] PCP - General Nurse Practitioner 05/06/19 03/26/22 Elizabeth Abel MD [address] [place] [address] PCP - General Family Practice 03/27/22 Ray Antonio MD [address] [place] [address] Surgeon Orthopedic Surgery 06/02/19 Maribell Robles PA [address] [place] [address] Physician Chef'S Assistant Orthopedic Surgery 12/05/21 documented as of this encounter
--- OUTSIDE RECORDS SUMMARY | 2024-07-10 08:00 | XMS_ITS | Referral Summary ---
Author Organization [facility] [address] Address [address] [place] [address] Care Team Providers Care Master Baker Name Role Phone Ray Antonio MD Unavailable Maribell Robles Unavailable [phone] Elizabeth Abel MD Primary Care Provider Allergies [...] Due: Up-to-date. Will request colonoscopy results from [facility] Dietary and exercise recommendations given today. [...] months Assessment & Plan (03/27/2022 12:39 PM PROFESSOR OF LANGUAGES): Chronic and stable. PHQ 9 score is [...] months Assessment & Plan (03/27/2022 12:39 PM PROFESSOR OF LANGUAGES): Chronic and stable. Continue current medication (gabapentin). Prediabetes 03/27/2022 Assessment & Plan (02/13/2023 3:13 PM CDT): Chronic and stable. Will repeat labs 03/2023 to monitor for changes off Victoza. Patient was previously taking medication for weight loss Assessment & Plan (07/13/2022 4:14 PM CDT): Chronic and stable. Continue current medication. Labs ordered today. Follow-up 3 months Assessment & Plan (03/27/2022 12:39 PM PROFESSOR OF LANGUAGES): Chronic and stable. Continue current medication. Will request lab results from previous PCP. Follow-up 3 months at well visit Gastroesophageal reflux disease 03/27/2022 Assessment & Plan (04/25/2023 3:58 PM PROFESSOR OF LANGUAGES): History of hiatal hernia. Chronic and stable. Continue current medication. Will monitor Assessment & Plan (03/27/2022 12:40 PM PROFESSOR OF LANGUAGES): Chronic. History of hiatal hernia. Chronic and stable. Continue current medication. Will monitor Feared condition not demonstrated 03/27/2022 Assessment & Plan (03/27/2022 12:43 PM PROFESSOR OF LANGUAGES): Concern for memory loss. Mini cog completed [...] (11/16/2021): Added automatically from request for surgery [id number] Aftercare following left knee joint replacement surgery 07/21/2019 Primary osteoarthritis of left knee 05/15/2019 Overview (05/15/2019): Added automatically from request for surgery [id number] Abnormal stress test 01/16/2017 Exertional dyspnea 01/16/2017 Class 3 severe obesity due t o excess calories with serious comorbidity and body mass index (BMI) of 40.0 to 44.9 in adult 12/25/2016 Assessment & Plan (04/25/2023 3:57 PM PROFESSOR OF LANGUAGES): BMI:42 (Obese) Dietary and exercise recommendations reiterated [...] weeks Assessment & Plan (03/27/2022 12:37 PM PROFESSOR OF LANGUAGES): Doing well. BMI:38.05 (Obese) Dietary and exercise [...] diet. Assessment & Plan (04/25/2023 3:54 PM PROFESSOR OF LANGUAGES): Chronic and elevated. Goal < 130/80 Continue [...] medication Assessment & Plan (03/27/2022 12:32 PM PROFESSOR OF LANGUAGES): Chronic and stable. Minimally above goal <130/80 off medication. Will Continue to monitor Resolved Problems Problem Noted Date Diagnosed Date Resolved Date Biceps tendonitis on left 11/16/2021 Overview (11/16/2021): Added automatically from request for surgery [id number] Immunizations Immunization Administration Dates Next Due Influenza, [...] on file Legal Sex Female 7:45 PM PROFESSOR OF LANGUAGES Gender Identity Not on file Sexual Orientation [...] Body Mass Index 39.68 04/25/2023 3:22 PM PROFESSOR OF LANGUAGES Plan of Treatment Not on file Medical Devices Implanted Type Area B2B Sales Consultant Device Identifier Shelf Expiration Date Model / Serial / Lot DepPrepared Response Orthopaedics Inc [id number] Attune Cemented Posterior Stabilize Knee Left 4 Component Femoral - [id number] Implanted:Qty: 1 on 06/01/2019 by Ray Antonio MD at [facility] Left: Knee [employer]uy Orth[employer] Inc 04/21/2029 [id number] / / [id number] Depuy Orthopaed[employer] Inc [id number] Attune S+ Cement Fix Bearing Knee 4 Baseplate Tibial - [id number] Implanted:Qty: 1 on 06/01/2019 by Ray Antonio MD at [facility] Left: Knee [employer] Inc 02/19/2029 [id number] / / [id number] [employer] 6195-1-001 Cement Bone Simplex Gentamicin High Viscosity 40gm - [id number] Implanted:Qty: 1 on 06/01/2019 by Ray Antonio MD at [facility] Left: Knee [employer] [place] [employer] 11/19/2020 6195-1-001 / / [id number] [employer] 6195-1-001 Cement Bone Simplex Gentamicin High Viscosity 40gm - [id number] Implanted:Qty: 1 on 06/01/2019 by Ray Antonio MD at [facility] Left: Knee [employer] 11/19/2020 6195-1-001 / / [id number] [employer]uy Orthopaed[employer] Inc [id number] Attune 8mm Posterior Stabilize Fix Bearing Knee 4 Insert Tibial - [id number] Implanted:Qty: 1 on 06/01/2019 by Ray Antonio MD at [facility] Left: Knee [employer] Inc 02/20/2024 [id number] / / [id number] Ar[employer] Univers Revers Biosync 39mm 24mm Glenosphere Taper Baseplate Xh-8873-3944 - [id number] Implanted:Qty: 1 on 12/05/2021 by Mike Zaragoza MD at [facility] [employer] C1776 07/20/2025 HF-7500-7237 / / [id number] [employer] Inc Cup Humeral Univers Revers +2 Od36mm Shoulder Left Suture Un-9258h-04cute - [id number] Implanted:Qty: 1 on 12/05/2021 by Mike Zaragoza MD at [facility] [employer] [id number] 11/19/2024 AR-9502F- 36L 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 / / [id number] [employer] Insert Humeral Combo Reverse Poly Univers Revers +3x36mm Xs-7359-9748-3 - [id number] Implanted:Qty: 1 on 12/05/2021 by Mike Zaragoza MD at [facility] [employer] 10/19/2024 CJ-7404-5683 -3 / / [id number] [employer] Inc Univers Revers Shoulder 6 Stem Humeral Sterile Ar-9501-06s - [id number] Implanted:Qty: 1 on 12/05/2021 by Mike Zaragoza MD at [facility] [employer] C1776 02/19/2026 AR-9501-06S / / [id number] [employer] Inc Baseplate 24mm 10 Deg Full Augment Oblique Cp-2817-2779 - [id number] Implanted:Qty: 1 on 12/05/2021 by Mike Zaragoza MD at [facility] [employer] C1776 05/22/2025 ZM-[id number] / / [id number] Ar[employer] Univers Revers 20mm Modular Post Component Glenoid Porous Ar-9582-20 - [id number] Implanted:Qty: 1 on 12/05/2021 by Mike Zaragoza MD at [facility] [employer] C1776 11/19/2025 AR-9582-20 / / [id number] [employer] Univers Revers 5.5mm 40mm Modular Lock Glenoid Peripheral Screw Ar-9563-40 - [id number] Implanted:Qty: 1 on 12/05/2021 by Mike Zaragoza MD at [facility] [employer] C1713 08/20/2023 AR-9563-40 / / [id number] Ar[employer] Inc 5.5mm 24mm Lock Modular Glenoid Screw Bone Ar-9563-24 - [id number] Implanted:Qty: 1 on 12/05/2021 by Mike Zaragoza MD at [facility] [employer] C1713 07/20/2026 AR-9563-24 / / [id number] Procedures Procedure Name Priority Date/Time Associated Diagnosis [...] GENERAL O RDERABLES Final Result [facility] [id number] Department [place] [address] from Last 3 Months or Most Recently Relevant to Health Maintenance Insurance [address] [place] [address] [employer] CHOICE MEDICARE PPO [address] [place] [id number] [employer] CHO[employer] MEDICARE PPO [address] [place] [phone] Advance Directives For more information, please contact: [phone] * Full Code (Latest Code Status on File) Date Activated Date Inactivated Comments 12/05/2021 11:07 AM 12/05/2021 6:01 PM * Full Code Date Activated Date Inactivated Comments 06/01/2019 1:56 PM 06/02/2019 7:34 PM Care Teams Master Baker Relationship Specialty Start Date End Date Elizabeth Abel MD PCP - General Family Practice 03/27/22 Ray Antonio MD Surgeon Orthopedic Surgery 06/02/19 Maribell Robles PA Physician Airline Reservation Agent Orthopedic Surgery 12/05/21
--- OUTSIDE RECORDS SUMMARY | 2024-07-10 08:00 | XMS_ITS | Encounter Summary ---
Author Organization [facility] Care Team Providers Care Math Instructor Name Role Phone Marlene Cary MD Primary Care Provider + Alicia Rome MD Primary Care Provide r Chelsie Myrick NP Primary Care Provider [phone] Ray Antonio MD Unavailable [phone] Maribell Robles Unavailable [phone] Elizabeth Abel MD Primary Care Provider [phone] Encounter Details Date Type Department Care Team (Latest Contact Info) Description 12/01/2016 Orders Only [facility] CLINCONV ProviderRadha MD [address] [place] [address] Social History Tobacco Use Types Packs/Day Years Used Date Smoking Tobacco: Former Cigarettes Q uit: 04/22/1976 Alcohol Use Standard Drinks/Week Comments No 0 (1 standard drink = 0.6 oz pur e alcohol) Comments Unknown Sex and Gender Information Value Date Recorded Sex Assigned at Not on file Legal Sex Female 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 Gender Identity Not on file Sexual Orientation [...] documented as of this encounter Care Teams Math Instructor Relationship Specialty Start Date End Date Marlene Cary MD [address] [place] [address] PCP - General 02/17/14 01/15/17 Alicia Rome MD [address] [place] [address] PCP - General Family Medicine 01/16/17 05/05/19 Chelsie Myrick NP [address] [place] [address] PCP - General Nurse Practitioner 05/06/19 03/26/22 Elizabeth Abel MD [address] [place] [address] PCP - General Family Practice 03/27/22 Ray Antonio MD [address] [place] [address] Surgeon Orthopedic Surgery 06/02/19 Maribell Robles PA [address] [facility] [address] [place] [address] Physician Chief Juvenile Probation Officer Orthopedic Surgery 12/05/21 documented as of this encounter
--- OUTSIDE RECORDS SUMMARY | 2024-07-10 08:01 | XMS_ITS | Clinical Summary ---
Author Organization [facility] Address [address], [address] [address] Phone Care Team Providers Care Animal Physiology Teacher Name Role Phone Chelsie Myrick MILLY Primary Care Provider [phone] Allergies Active Allergy Reactions Criticality Noted Date Comments Celecoxib Other (see Comments) 07/02/2024 dizziness Latex Other (see Comments) 07/02/2024 Skin irritation Wound Dressing Adhesive Rash 07/02/2024 Medications hydroCHLOROthia zide 25 MG Tablet Take 25 mg by mouth daily. 5 Active lisinopril (PRINIVIL, ZESTRIL) 5 MG Tablet Take 5 mg by mouth daily. 5 Active DULoxetine (CYMBALTA) [address] Particles 30 MG ORALLY DAILY TO TAKE WITH 60MG TO = 90MG DAILY 5 Active DULoxetine (CYMBALTA) [address] Particles Take 60 mg by mouth daily. 5 Active metFORMIN (GLUCOPHAGE) 500 MG Tablet Take 500 mg by mouth 2 times daily. 4 Active gabapentin (NEURONTIN) 300 MG Capsule take 3 capsules by mouth 2 times a day. 5 Active omeprazole (PriLOSEC) 40 MG CAPSULE DELAYED RELEASE Take 40 mg by mouth daily. 5 Active meloxicam (MOBIC) 15 MG Tablet 15 MG ORALLY DAILY NEEDED FOR ARTHRITIS PAIN 5 Active Cyanocobalamin 1000 MCG Tablet Take 1,000 mcg by mouth daily. Active Social History Tobacco Use Types Packs/Day Years Used Date Smoking Tobacco: Never Smokeless Tobacco: Never Tobacco Cessation:Counseling Given: Not Answered Alcohol Use Standard Drinks/Week Comments Never 0 (1 standard drink = 0.6 oz pur e alcohol) Comments Unknown Sex and Gender Information Value Date Recorded Sex Assigned at Not on file Legal Sex Female 7:40 PM CDT Gender Identity Not on file Sexual Orientation Not on file Plan of Treatment Upcoming Encounters Date Type Department Care Team (Late st Contact Info) Description 10/09/2024 10:00 AM CDT Office Visit [facility] - Neurology [facility] [address] [place] [id number] Luis Antonio Child MD [address] [place] [phone] Health Maintenance Due Date Last Done Comments Hepatitis C Virus (HCV) Screening 1960 Mammogram 1960 TdaP Immunization 1960 Pap Smear 02/13/1981 Cervical Cancer Screening (CCS) 02/13/1990 HPV/Cotest 02/13/1990 Colonoscopy 02/13/2005 Colorectal Cancer Screening 02/13/2005 Cologuard 02/13/2010 Immunochemical Fecal Occult Blood 02/13/2010 Pneumococcal Immunization (50+ years) (1 of 1 - PCV) 02/13/2010 Zoster Immunization (1 of 2) 02/13/2010 SARS-COV-2 Immunization (3 - season) 2023 11/02/2020, 10/12/2020 Respiratory Syncytial Virus (RSV) Immunization (Adult) (1 - 1-dose 75+ series) 02/13/2035 Influenza Immunization Completed , 02/13/2023, 03/27/2022, Additional history exists Hepatitis B Immunization Aged Out No longer eligible based on patient's age to complete this topic Meningococcal Immunization (ACWY) Aged Out No longer eligible based on patient's age to complete this topic Rotavirus Immunization Aged Out No lo nger eligible based on patient's age to complete this topic Insurance [facility] Care Teams Animal Physiology Teacher Relationship Specialty Start Date End Date Chelsie Myrick APRN [address] [place] [address] PCP - General Advanced Practice Nurse 07/02/24
--- OUTSIDE RECORDS SUMMARY | 2024-07-10 08:01 | XMS_ITS | Encounter Summary ---
Author Organization [facility] Facility Care Team Providers Care Lime Kiln Worker Name Role Phone Alicia Rome MD Primary Care Provide r Chelsie Myrick NP Primary Care Provider [phone] Ray Antonio MD Unavailable [phone] Maribell Robles Unavailable [phone] Elizabeth Abel MD Primary Care Provider [phone] Encounter Details Date Type Department Care Team (Latest Contact Info) Description 01/25/2017 Orders Only [facility] CLINCONV Provider, MD Radha [address] [place] [id number] Social History Tobacco Use Types Packs/Day Years Used Date Smoking Tobacco: Former Smokeless Tobacco: Never Alcohol Use Standard Drinks/Week Comments No 0 (1 standard drink = 0.6 oz pur e alcohol) Comments Unknown Sex and Gender Information Value Date Recorded Sex Assigned at Not on file Legal Sex Female 7:45 PM ANODE REBUILDER Gender Identity Not on file Sexual Orientation Not on file documented as of this encounter Plan of Treatment Not on file documented as of this encounter Procedures Procedure Name Priority Date/Time Associated Diagnosis Comments CARDIOLOGY REPORT 03/27/2017 12: 00 AM ANODE REBUILDER SCAN - LABS 01/25/2017 12:00 AM CDT documented in this encounter Results * CARDIOLOGY REPORT (03/27/2017 12:00 AM ANODE REBUILDER) Anatomical Region Laterality Modality Other Narrative 03/27/2017 12:00 AM ANODE REBUILDER Ordered by an unspecified provider. us Historical [...] documented as of this encounter Care Teams Lime Kiln Worker Relationship Specialty Start Date End Date Alicia Rome MD [address] [place] [address] PCP - General Family Medicine 01/16/17 05/05/19 Chelsie Myrick NP [address] [place] [address] PCP - General Nurse Practitioner 05/06/19 03/26/22 Elizabeth Abel MD [address] [place] [address] PCP - General Family Practice 03/27/22 Ray Antonio MD [address] [place] [address] Surgeon Orthopedic Surgery 06/02/19 Maribell Robles PA [address] [place] [address] Physician Shopping Inspector Orthopedic Surgery 12/05/21 documented as of this encounter
--- OUTSIDE RECORDS SUMMARY | 2024-07-10 08:01 | XMS_ITS | Encounter Summary ---
Author Organization [facility] Facility Care Team Providers Care Turn Machine Operator Name Role Phone Marlene Cary MD Primary Care Provider + Alicia Rome MD Primary Care Provide r Chelsie Myrick NP Primary Care Provider [phone] Ray Antonio MD Unavailable [phone] Maribell Robles Unavailable [phone] Elizabeth Abel MD Primary Care Provider [phone] Encounter Details Date Type Department Care Team (Latest Contact Info) Description 01/04/2017 Orders Only [facility] CLINCONV ProviderRadha MD [address] [place] [address] Social History Tobacco Use Types Packs/Day Years Used Date Smoking Tobacco: Former Smokeless Tobacco: Never Alcohol Use Standard Drinks/Week Comments No 0 (1 standard drink = 0.6 oz pur e alcohol) Comments Unknown Sex and Gender Information Value Date Recorded Sex Assigned at Not on file Legal Sex Female 7:45 PM GLUE SPECIALTY SUPERVISOR Gender Identity Not on file Sexual Orientation [...] documented as of this encounter Care Teams Turn Machine Operator Relationship Specialty Start Date End Date Marlene Cary MD [address] [place] [address] PCP - General 02/17/14 01/15/17 Alicia Rome MD [address] [place] [address] PCP - General Family Medicine 01/16/17 05/05/19 Chelsie Myrick NP [address] [place] [address] PCP - General Nurse Practitioner 05/06/19 03/26/22 Elizabeth Abel MD [address] [place] [address] PCP - General Family Practice 03/27/22 Ray Antonio MD [address] [place] [address] Surgeon Orthopedic Surgery 06/02/19 Maribell Robles PA [address] [facility] [address] [place] [address] Physician Shirring Machine Operator Orthopedic Surgery 12/05/21 documented as of this encounter
--- OUTSIDE RECORDS SUMMARY | 2024-07-10 08:01 | XMS_ITS | Continuity of Care Document ---
Author Organization [facility] Address [address] [place] [address] Phone Care Team Providers Care Scaffold Erector Name Role Phone Ztest, Provider Unavailable Unavailable Medications Medication Instructions Dosage Effective Dates (start - stop) Status Comments HYDROCHLOROTHIAZIDE 25MG TABS 1 QAM 6 - Active ENALAPRIL MALEATE 10MG TABS 1 DAILY - Active ETODOLAC 400MG TABS 1 BID - Active Advance Directives Directive Yes / No Effective Date File Name No Information Encounters Encounter Description Practice Location Reason(s) For Visit Diagnoses Date Provider Providers Copied on Encounter [facility], [address], [place], [place], [id number] , tel: [phone] [facility] No Information 8 Ztest Provider. [address] [facility], 4th Floor, [place], [place], [facility], . tel:[phone] [facility], [address], [place], [place], [address] , tel: [phone] Conversion Department No Information 6201 1 Conversion Doctor. [address] [place], [place], [facility], . [facility], [address], [place], [place], [address] , tel: [phone] [facility] HEALTH EXAM-GROUP SURVEY Sep-3 0-200 5 No Information [facility], [address], [place], [place], [address] , tel: [phone] [facility] BENIGN HYPERTENSION Sep-1 2-200 5 No Information [facility], [address], [place], [place], [address] , tel: [phone] [facility] LUMBAGO 5 Conversion Doctor. [facility] [place], [address], . [facility], [address], [place], [place], [address] , tel: [phone] [facility] LOC PRIM OSTEOART-L/LEG 5 No Information [facility], [address], [place], [place], [address] , [place] tel: [phone] [facility] OSTEOARTHROS NOS-UNSPEC 5 No Information [facility], [address], [place], [place], [address] , [place] tel: [phone] [facility] NE DEPRESSIVE DISORDER NECLUMB/LUMBOSAC DISC DEGENSPINAL STENOSIS-LUMBAR 4 No Information [facility] [employer], [address], [place], [place], [address] , [place] tel: [phone] [facility] HYPERTENSION NOS 4 Conversion Doctor. [facility] [place], [address], . [employer] [employer], [address], [place], [place], [address] , tel: [phone] [facility] POLYDIPSIAACUTE SINUSITIS NOS 4 Conversion Doctor. [facility] [place], [address], . [facility] [employer], [address], [place], [place], [address] , tel: [phone] [facility] IRRITABLE BOWEL SYNDROME 3 Conversion Doctor. Critical access [facility] [place], [address], . Family History Family Member Type Diagnosis Age At Onset No Information Payers Payer name Insurance type Covered alliance party ID Authoriza tion(s) No Information Social [...]
--- OUTSIDE RECORDS SUMMARY | 2024-07-10 08:01 | XMS_ITS | Encounter Summary ---
Author Organization [facility] Facility Care Team Providers Care Cap Parts Cutter Name Role Phone Alicia Rome MD Primary Care Provide r Chelsie Myrick NP Primary Care Provider [phone] Ray Antonio MD Unavailable [phone] Maribell Robles Unavailable [phone] Elizabeth Abel MD Primary Care Provider [phone] Encounter Details Date Type Department Care Team (Latest Contact Info) Description 08/29/2017 Orders Only [facility] CLINCONV Provider, MD Radha [address] [place] [address] Social History Tobacco Use Types Packs/Day Years Used Date Smoking Tobacco: Former Smokeless Tobacco: Never Alcohol Use Standard Drinks/Week Comments No 0 (1 standard drink = 0.6 oz pur e alcohol) Comments Unknown Sex and Gender Information Value Date Recorded Sex Assigned at Not on file Legal Sex Female 7:45 PM PACK PULLER Gender Identity Not on file Sexual Orientation [...] AM CDT Ordered by an unspecified provider. [facility] Provider MD Final Res ult * SCAN - LABS (09/05/2017 12:00 AM CDT) Narrative 09/05/2017 12:00 AM CDT Ordered by an unspecified provider. [facility] Provider Final Res ult * SCAN - LABS (09/03/2017 12:00 AM CDT) Narrative 09/03/2017 12:00 AM CDT Ordered by an unspecified provider. [facility] Provider Final Res ult * SCAN - LABS (09/03/2017 12:00 AM CDT) Narrative 09/03/2017 12:00 AM CDT Ordered by an unspecified provider. [facility] Provider Final Res ult * SCAN - LABS (09/03/2017 12:00 AM CDT) Narrative 09/03/2017 12:00 AM CDT Ordered by an unspecified provider. [facility] Provider Final Res ult documented in this [...] documented as of this encounter Care Teams Cap Parts Cutter Relationship Specialty Start Date End Date Alicia Rome MD [address] [address] PCP - General Family Medicine 01/16/17 05/05/19 Chelsie Myrick NP [address] [address] PCP - General Nurse Practitioner 05/06/19 03/26/22 Elizabeth Abel MD [address] [address] PCP - General Family Practice 03/27/22 Ray Antonio MD [address] [address] Surgeon Orthopedic Surgery 06/02/19 Maribell Robles PA [address] [address] Physician Digital Cartographic Technician Orthopedic Surgery 12/05/21 documented as of this encounter
--- NOTE | 2024-08-05 14:26 | WPDSLEEPSTUD ---
Sleep Study Date of Study: 07/10/24 Ordering Provider: Chelsie Myrick APRN Interpreting Physician: Marilee Mccoy DO Sleep Study Type: Split Polysomnogram Height: 1.57 m Weight: 102.058 kg Body Mass Index: 41.1 Neck Circumference (inches): 19 [place]: 8 Reason for Sleep Study Previously diagnosed SAMIA. Tried CPAP but didn't notice a difference so she stopped using it. Daytime hypersomnia and memory issues Sleep History The patient is a 64-year-old that had a sleep study ordered by her primary care for evaluation sleep apnea. The patient occasionally awakens from sleep short of breath. She denies awakening at night with heartburn, belching or cough. The patient frequently snores and it is frequently loud enough that others complain. The patient occasionally has trouble sleeping when she has a cold. She denies waking up gasping for air throughout the night. She rarely has breathing problems at night observed by herself or others. She occasionally sweats excessively at night. She denies having any heart palpitations or irregular heartbeats throughout the night. She occasionally falls asleep during the day but never while driving. She occasionally experiences loss muscle tone when extremely emotional. She denies having trouble at school or work due to sleepiness. She occasionally feels unable to move waking up or falling asleep. She frequently experiences vivid dreamlike scenes upon awakening or falling asleep. She denies feeling afraid of going to sleep. She occasionally has nightmares. She frequently remembers her dreams. She occasionally has thoughts racing through her. She occasionally feels sad or depressed. She frequently has anxiety. She frequently has muscular tension. She frequently notices parts of her body jerk. She occasionally kicks during the night. She denies having crawling and aching feelings in her legs but occasionally has leg pain during the night. She rarely grinds her teeth during sleep but never awakens with morning jaw pain. She is frequently bothered by pain during the day and occasionally awakened by pain during the night. She frequently wakes up feeling stiff in the morning. She frequently wakes up with sore or achy muscles. She frequently wakes up with pain in the neck, spine and other joints. She goes to bed at 10:00 p.m. on weekdays and at 11:00 p.m. on the weekends. It takes her 1-2 hours to fall asleep. She wakes up 1-2 times throughout the night to urinate is able to fall back asleep within a few minutes. She wakes up between 11:00 a.m. to noon on both weekdays and weekends. She typically gets 10-12 hours of sleep per night. The amount of time she spends in bed after waking up in the morning as variable. She currently lives. She denies consuming any caffeinated beverages within 2 hours of bedtime. She denies engaging in physical exercise before bedtime. She will read watch television before falling asleep. She will take naps in the afternoon or the evening but they are not refreshing. She consumes 20 oz of diet Pepsi per day. She denies tobacco, alcohol and recreational drug use. FORMERLY [facility], [facility] Past Medical History Medical History Normal colonoscopy December 2014 Shingles 2016 Osteopenia Anxiety and depression Hyperlipidemia Hiatal hernia Obstructive sleep apnea Moderate obstructive sleep apnea noted sleep study from June 2015 recommending CPAP of 12 but patient refuses CPAP Obesity Essential hypertension Type 2 diabetes mellitus Chronic kidney disease Noted since January 2019 Acute kidney injury Fibromyalgia Surgical History Surgical History History of cardiac catheterization No evidence of coronary artery disease noted on cardiac catheterization January 2017 History of lumbar surgery 2003 History of tubal ligation 1994 History of section 1985 History of bilateral carpal tunnel release December 2017 Status post trigger finger release Left thumb History of total bilateral knee replacement Right knee April 2017 Family History Family History Sibling Depression Arthritis Bipolar disorder Father Hypertension COPD (chronic obstructive pulmonary disease) Arthritis CHF (congestive heart failure) Coronary artery disease Gout Mother Hypertension Arthritis Grandparent Dementia Social History Social History Smoking status: Never smoker Second hand tobacco smoke exposure: No Smoking end date: 04/22/86 Alcohol intake: never Substance use: never Living arrangements: alone Occupation/Education: unemployed Additional occupation/education comments: She reports that she has been unable to work due to her fibromyalgia. 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 Gender identity (if verbalized by the patient): Female Spiritual care concerns: No Agree to blood products: Yes Medications Home Medications ?Medication ?Instructions ?Recorded ?Confirmed ?Type hydrochlorothiazide 25 mg tablet 25 mg PO DAILY #90 tabs 10/29/23 06/25/24 Rx lisinopril 5 mg tablet 5 mg PO DAILY #90 tabs 10/29/23 06/25/24 Rx duloxetine 30 mg capsule,delayed 30 mg PO DAILY #90 caps 11/07/23 06/25/24 Rx release duloxetine 60 mg capsule,delayed 60 mg PO DAILY #90 caps 11/07/23 06/25/24 Rx release metformin 500 mg tablet 500 mg PO BID #180 tabs 12/25/23 06/25/24 Rx omeprazole 40 mg capsule,delayed See Rx Instructions .Route 03/23/24 06/25/24 Rx release .COMPLEX #90 caps meloxicam 15 mg tablet 15 mg PO DAILY PRN arthritis pain 05/18/24 06/25/24 Rx #90 tabs cyanocobalamin (vitamin B-12) 1,000 mcg sublingual DAILY #90 tabs 05/27/24 06/25/24 Rx 1,000 mcg sublingual tablet azithromycin 250 mg tablet See Rx Instructions PO .COMPLEX #6 06/25/24 06/25/24 Rx tabs gabapentin 300 mg capsule See Rx Instructions .Route 07/27/24 Rx .COMPLEX #180 caps Sleep Procedure A full night split study using the SinDelantal multi-channel system recorded the standard physiologic parameters including EEG, EOG, submentalis EMG, anterior tibialis EMG, EKG, body position, nasal and oral airflow using nasal pressure sensor and thermistor.? Respiratory parameters of chest and abdominal movements were recorded with Respiratory Inductance Plethysmography belts. Oxygen saturation was recorded by pulse oximetry. Video monitoring was also performed. Sleep stages, periodic limb movements, and EEG arousals were scored in 30 second epochs according to the criteria of the AASM Scoring Manual. The Apnea-Hypopnea Index was calculated using CMS guidelines for definition of hypopnea with 4% O2 desaturations while scoring respiratory events. Sleep Architecture During the diagnostic portion of the study, the total recording time was 195.8 minutes. The total sleep time was 152.5 minutes. Sleep latency was 19.3 minutes.? REM sleep was not achieved during this portion of the study. Sleep Efficiency was 77.9%. The patient had 16 awakenings for an awakening index of 6.3. Wake after sleep onset time was 24.0 minutes. The patient spent 20.0 minutes, 13.1% of total sleep time in Stage N1. The patient spent 132.5 minutes, 86.9% in Stage N2. The patient spent 0.0 minutes, 0.0% in Stage N3. The patient spent 0.0 minutes, 0.0% in Stage REM sleep. At 01:36:37 AM the patient was placed on PAP treatment and was titrated at pressures ranging from 5 cm H20 up to 12 cm H20. During the treatment portion of the study, the total recording time was 299.7 minutes.? The total sleep time was 237.5 minutes. Sleep latency was 25.5 minutes. REM latency was 126.5 minutes. Sleep Efficiency was 79.2%. Wake after Sleep Onset time was 37.0 minutes. The patient spent 37.0 minutes, 15.6% of total sleep time in Stage N1. The patient spent 172.0 minutes, 72.4% in Stage N2. The patient spent 0.0 minutes, 0.0% in Stage N3. The patient spent 28.5 minutes, 12.0% in Stage REM. Respiratory Analysis During the diagnostic portion of the study, the patient had 17 hypopneas and 5 obstructive apneas for an overall Apnea Hypopnea Index of 8.7 events per hour. The REM Apnea Hypopnea Index was 0. The NREM Apnea Hypopnea Index was 8.7. The patient had a Central Apnea Hypopnea Index of 0. There was no evidence of Rene-Steele Respirations. During the treatment portion of the study, the patient had 28 hypopneas and 10 obstructive apneas for an overall Apnea Hypopnea Index of 9.6 events per hour. The REM Apnea Hypopnea Index was 12.6. The NREM Apnea Hypopnea Index was 9.2. The patient had a Central Apnea Hypopnea Index of 0. There was no evidence of Rene-Steele Respirations. The patient was started on CPAP 5 cm H2O and titrated to CPAP 12 cm H2O due to obstructive apneas and hypopneas. The patient was able to fall asleep starting CPAP 5 cm H2O. The patient was able to achieve REM sleep starting on CPAP 8 cm H2O. The patient was able to achieve a residual AHI less than 5 with both NREM and REM sleep in the supine position on the final pressure setting. On CPAP 12 cm H2O, the patient spent 82.5 minutes in NREM and 1 minute in REm with 13 hypopneas, resulting in an AHI of 1.4. The patient had a sleep efficiency of 93.8% on this pressure setting. Arousals During the diagnostic portion of the study, there were a total of 37 arousals for an arousal index of 14.6.? There were 7 respiratory arousals for an index of 2.8. There were 3 periodic limb movement arousals for an index of 1.2.? There were 8 isolated limb movement arousals for an index of 3.1. There were 19 spontaneous arousals for an index of 7.5. During the treatment portion of the study, there were a total of 61 arousals for an index of 15.4.? There were 12 respiratory arousals for an index of 3.0. There were 3 periodic limb movement arousals for an index of 0.8.? There were 8 isolated limb movement arousals for an index of 2.0. There were 38 spontaneous arousals for an index of 9.6. Periodic Limb Movements During the diagnostic portion of the study, the patient had 67 isolated limb movements with an index of 26.4. The patient had 79 periodic limb movements with an index of 31.1, which is elevated (normal < 15). The patient had a total of 146 limb movements with a total limb movement index of 57.4. During the treatment portion of the study, the patient had 45 isolated limb movements with an index of 11.4. The patient had 39 periodic limb movements with an index of 9.9. The patient had a total of 84 limb movements with a total limb movement index of 21.2. Oximetry Data During the diagnostic portion of the study, the patient had an average oxygen saturation of 93.5% in wake with a minimum oxygen saturation of 89% and a maximum oxygen saturation of 98%. The patient had an average oxygen saturation of 93.0% in sleep with a minimum oxygen saturation of 86.0% and a maximum oxygen saturation of 98.0%. The patient had 57 oxygen desaturations resulting in an Oxygen Desaturation Index of 22.4. The patient spent 0.4 minutes, 0.2% of total sleep time with an oxygen saturation less than 88%. During the treatment portion of the study, the patient had an average oxygen saturation of 94.1% in wake with a minimum oxygen saturation of 84.0% and a maximum oxygen saturation of 99.0%. The patient had an average oxygen saturation of 91.9% in sleep with a minimum oxygen saturation of 84.0% and a maximum oxygen saturation of 98.0%. The patient had 95 oxygen desaturations resulting in an Oxygen Desaturation Index of 24.0. The patient spent 28 minutes, 9.3% of total sleep time with an oxygen saturation less than 88%. Snoring Profile Mild to moderate snoring was present in the baseline portion of the study. The snoring resolved once the patient was started on CPAP. Cardiac Profile The EKG lead showed normal sinus rhythm. No arrhythmias or premature beats were seen. During the diagnostic portion of the study, the average pulse rate was 72.5 bpm.? The minimum pulse rate was 66.0 bpm. The maximum pulse rate was 88.0 bpm. During the treatment portion of the study, the average pulse rate was 68.2 bpm.? The minimum pulse rate was 57.0 bpm. The maximum pulse rate was 83.0 bpm. EEG Profile No signs of seizure activity seen. Assessment and Plan Assessment and Plan (1) Obstructive sleep apnea: Code(s): G47.33 - Obstructive sleep apnea (adult) (pediatric) Status: Acute Assessment and Plan: In the baseline portion of the study, the patient had an overall AHI of 8.7 with desaturation down to 86%. This is consistent with mild sleep apnea. Due to the patient's hypertension, she qualifies for treatment. The patient was started on CPAP 5 cm H2O and titrated to CPAP 12 cm H2O due to obstructive apneas and hypopneas. The patient's sleep apnea resolved on the final pressure setting. I recommend that the patient be prescribed CPAP 12 cm H2O, size small F&P Solo nasal mask, CPAP filters/tubing and heated humidity. This should be used with all episodes of sleep.? Compliance should be reviewed within 31-90 days of starting therapy for usage greater than 4 hours per night greater than 70% of the nights. The patient should be asked about symptoms such as?excessive daytime sleepiness, quality of sleep, decreased nocturia, increased?mental functioning such as memory, mood, and concentration. Data The data obtained during this sleep study is adequate for interpretation. Certification This sleep study has been reviewed by a board certified sleep medicine physician.
[2024-08-06 08:51] VITALS: BMI 41.1
== END 2024-07-11 07:40 | disposition home or self-care (01) ==
LOC: ANHCSM 07:54
PROVIDERS: PCP Nurse Practitioner Adult Health; Visit Provider Nurse Practitioner Adult Health
DX: G47.33 Obstructive sleep apnea (adult) (pediatric) (principal)
CPT/HCPCS: 95811

== ENCOUNTER 2024-08-20 13:47 | Outpatient (CLI) | payer MEDICARE, MEDICAID, SELFPAY ==
--- OUTSIDE RECORDS SUMMARY | 2024-08-20 14:34 | XMS_ITS | Encounter Summary ---
Author Organization [facility] Facility Care Team Providers Care Automatic Screwmaker Name Role Phone Alicia Rome MD Primary Care Provide r Chelsie Myrick NP Primary Care Provider [phone] Ray Antonio MD Unavailable [phone] Maribell Robles Unavailable [phone] Elizabeth Abel MD Primary Care Provider [phone] Encounter Details Date Type Department Care Team (Latest Contact Info) Description 01/25/2017 Orders Only [facility]IN[facility] Provider, MD Radha [address] [place] [address] Social History Tobacco Use Types Packs/Day Years Used Date Smoking Tobacco: Former Smokeless Tobacco: Never Alcohol Use Standard Drinks/Week Comments No 0 (1 standard drink = 0.6 oz pur e alcohol) Comments Unknown Sex and Gender Information Value Date Recorded Sex Assigned at Not on file Legal Sex Female 7:45 PM SUPERVISOR BOTTLE MACHINES Gender Identity Not on file Sexual Orientation Not on file documented as of this encounter Plan of Treatment Not on file documented as of this encounter Procedures Procedure Name Priority Date/Time Associated Diagnosis Comments CARDIOLOGY REPORT 03/27/2017 12: 00 AM SUPERVISOR BOTTLE MACHINES SCAN - LABS 01/25/2017 12:00 AM CDT documented in this encounter Results * CARDIOLOGY REPORT (03/27/2017 12:00 AM SUPERVISOR BOTTLE MACHINES) Anatomical Region Laterality Modality Other Narrative 03/27/2017 12:00 AM SUPERVISOR BOTTLE MACHINES Ordered by an unspecified provider. us Historical [...] documented as of this encounter Care Teams Automatic Screwmaker Relationship Specialty Start Date End Date Alicia Rome MD [address] [place] [address] PCP - General Family Medicine 01/16/17 05/05/19 Chelsie Myrick NP [address] [place] [address] PCP - General Nurse Practitioner 05/06/19 03/26/22 Elizabeth Abel MD [address] [place] [address] PCP - General Family Practice 03/27/22 Ray Antonio MD [address] [place] [address] Surgeon Orthopedic Surgery 06/02/19 Maribell Robles PA [address] [place] [address] Physician Supervisor Soakers Orthopedic Surgery 12/05/21 documented as of this encounter
--- OUTSIDE RECORDS SUMMARY | 2024-08-20 14:34 | XMS_ITS | Encounter Summary ---
Author Organization [facility] Facility Care Team Providers Care Sheet Tester Name Role Phone Marlene Cary MD Primary Care Provider + Alicia Rome MD Primary Care Provide r Chelsie Myrick NP Primary Care Provider Ray Antonio MD Unavailable [phone] Maribell Robles Unavailable [phone] Elizabeth Abel MD Primary Care Provider [phone] Encounter Details Date Type Department Care Team (Latest Contact Info) Description 01/04/2017 Orders Only [facility] CLINCONV ProviderRadha MD [address] [place] [address] Social History Tobacco Use Types Packs/Day Years Used Date Smoking Tobacco: Former Smokeless Tobacco: Never Alcohol Use Standard Drinks/Week Comments No 0 (1 standard drink = 0.6 oz pur e alcohol) Comments Unknown Sex and Gender Information Value Date Recorded Sex Assigned at Not on file Legal Sex Female 7:45 PM INTELLIGENCE OFFICER Gender Identity Not on file Sexual Orientation [...] documented as of this encounter Care Teams Sheet Tester Relationship Specialty Start Date End Date Marlene Cary MD [address] [place] [address] PCP - General 02/17/14 01/15/17 Alicia Rome MD [address] [place] [address] PCP - General Family Medicine 01/16/17 05/05/19 Chelsie Myrick NP [address] [place] [address] PCP - General Nurse Practitioner 05/06/19 03/26/22 Elizabeth Abel MD [address] [place] [address] PCP - General Family Practice 03/27/22 Ray Antonio MD [address] [place] [address] Surgeon Orthopedic Surgery 06/02/19 Maribell Robles PA [address] [facility] [address] [place] [address] Physician Electronics Tester Orthopedic Surgery 12/05/21 documented as of this encounter
--- OUTSIDE RECORDS SUMMARY | 2024-08-20 14:34 | XMS_ITS | Referral Summary ---
Author Organization [facility] [address] Address [address] [place] [address] Care Team Providers Care Informatics Educator Name Role Phone Ray Antonio MD Unavailable Maribell Robles Unavailable [phone] Elizabeth Abel MD Primary Care Provider Allergies [...] Due: Up-to-date. Will request colonoscopy results from [facility] Dietary and exercise recommendations given today. [...] months Assessment & Plan (03/27/2022 12:39 PM CLINICAL RESEARCH COORDINATOR): Chronic and stable. PHQ 9 score is [...] months Assessment & Plan (03/27/2022 12:39 PM CLINICAL RESEARCH COORDINATOR): Chronic and stable. Continue current medication (gabapentin). Prediabetes 03/27/2022 Assessment & Plan (02/13/2023 3:13 PM CDT): Chronic and stable. Will repeat labs 03/2023 to monitor for changes off Victoza. Patient was previously taking medication for weight loss Assessment & Plan (07/13/2022 4:14 PM CDT): Chronic and stable. Continue current medication. Labs ordered today. Follow-up 3 months Assessment & Plan (03/27/2022 12:39 PM CLINICAL RESEARCH COORDINATOR): Chronic and stable. Continue current medication. Will request lab results from previous PCP. Follow-up 3 months at well visit Gastroesophageal reflux disease 03/27/2022 Assessment & Plan (04/25/2023 3:58 PM CLINICAL RESEARCH COORDINATOR): History of hiatal hernia. Chronic and stable. Continue current medication. Will monitor Assessment & Plan (03/27/2022 12:40 PM CLINICAL RESEARCH COORDINATOR): Chronic. History of hiatal hernia. Chronic and stable. Continue current medication. Will monitor Feared condition not demonstrated 03/27/2022 Assessment & Plan (03/27/2022 12:43 PM CLINICAL RESEARCH COORDINATOR): Concern for memory loss. Mini cog completed [...] (11/16/2021): Added automatically from request for surgery [id number] Aftercare following left knee joint replacement surgery 07/21/2019 Primary osteoarthritis of left knee 05/15/2019 Overview (05/15/2019): Added automatically from request for surgery [id number] Abnormal stress test 01/16/2017 Exertional dyspnea 01/16/2017 Class 3 severe obesity due t o excess calories with serious comorbidity and body mass index (BMI) of 40.0 to 44.9 in adult 12/25/2016 Assessment & Plan (04/25/2023 3:57 PM CLINICAL RESEARCH COORDINATOR): BMI:42 (Obese) Dietary and exercise recommendations reiterated [...] weeks Assessment & Plan (03/27/2022 12:37 PM CLINICAL RESEARCH COORDINATOR): Doing well. BMI:38.05 (Obese) Dietary and exercise [...] diet. Assessment & Plan (04/25/2023 3:54 PM CLINICAL RESEARCH COORDINATOR): Chronic and elevated. Goal < 130/80 Continue [...] medication Assessment & Plan (03/27/2022 12:32 PM CLINICAL RESEARCH COORDINATOR): Chronic and stable. Minimally above goal <130/80 off medication. Will Continue to monitor Resolved Problems Problem Noted Date Diagnosed Date Resolved Date Biceps tendonitis on left 11/16/2021 Overview (11/16/2021): Added automatically from request for surgery [id number] Immunizations Immunization Administration Dates Next Due Influenza, [...] file Legal Sex Female 7:45 PM CLINICAL RESEARCH COORDINATOR Gender Identity Not on file Sexual Orientation [...] Body Mass Index 39.68 04/25/2023 3:22 PM CLINICAL RESEARCH COORDINATOR Plan of Treatment Not on file Medical Devices Implanted Type Area Glassware Finisher Device Identifier Shelf Expiration Date Model / Serial / Lot DepCocodrilo Dog Orthopaedics Inc [id number] Attune Cemented Posterior Stabilize Knee Left 4 Component Femoral - [id number] Implanted:Qty: 1 on 06/01/2019 by Ray Antonio MD at [facility] Left: Knee Depuy Orthopaedics Inc 04/21/2029 [id number] / / [id number] Depuy Orthopaedics Inc [id number] Attune S+ Cement Fix Bearing Knee 4 Baseplate Tibial - [id number] Implanted:Qty: 1 on 06/01/2019 by Ray Antonio MD at [facility] Left: Knee Depuy Orthopaedics Inc 02/19/2029 [id number] / / [id number] Chrissie [employer] 6195-1-001 Cement Bone Simplex Gentamicin High Viscosity 40gm - [id number] Implanted:Qty: 1 on 06/01/2019 by Ray Antonio MD at [facility] Left: Knee [employer] 11/19/2020 6195-1-001 / / [id number] [employer] 6195-1-001 Cement Bone Simplex Gentamicin High Viscosity 40gm - [id number] Implanted:Qty: 1 on 06/01/2019 by Ray Antonio MD at [facility] Left: Knee [employer] 11/19/2020 6195-1-001 / / [id number] Depuy Orthopaedics Inc [id number] Attune 8mm Posterior Stabilize Fix Bearing Knee 4 Insert Tibial - [id number] Implanted:Qty: 1 on 06/01/2019 by Ray Antonio MD at [facility] Left: Knee Depuy Orthopaedics Inc 02/20/2024 [id number] / / [id number] Arthrex Inc [place] Revers Biosync 39mm 24mm Glenosphere Taper Baseplate Wu-0665-2683 - [id number] Implanted:Qty: 1 on 12/05/2021 by Mike Zaragoza MD at [facility] [employer] [id number] 07/20/2025 [id number] / / [id number] Ar[employer] Inc Cup Humeral [place] Revers +2 Od36mm Shoulder Left Suture Zz-7418h-[id number] - [id number] Implanted:Qty: 1 on 12/05/2021 by Mike Zaragoza MD at [facility] [employer] [id number] 11/19/2024 AR-9502F- 36L CREPE SOLE SCOURER / / [id number] Ar[employer] Insert Humeral Combo Reverse Poly [place] Revers +3x36mm Ts-1444-9273-3 - [id number] Implanted:Qty: 1 on 12/05/2021 by Mike Zaragoza MD at [facility] [employer] 10/19/2024 LL-7766-1139 -3 / / [id number] Ar[employer] Inc [place] Revers Shoulder 6 Stem Humeral Sterile Ar-9501-06s - [id number] Implanted:Qty: 1 on 12/05/2021 by Mike Zaragoza MD at [facility] [employer] C1776 02/19/2026 AR-9501-06S / / [id number] Ar[employer]rex Inc Baseplate 24mm 10 Deg Full Augment Oblique Xj-0932-8341 - [id number] Implanted:Qty: 1 on 12/05/2021 by Mike Zaragoza MD at [facility] [employer] C1776 05/22/2025 [id number]-[id number] / / [id number] Ar[employer] Inc [place] Revers 20mm Modular Post Component Glenoid Porous Ar-9582-20 - [id number] Implanted:Qty: 1 on 12/05/2021 by Mike Zaragoza MD at [facility] [employer] C1776 11/19/2025 AR-9582-20 / / [id number] Ar[employer] Inc [place] Revers 5.5mm 40mm Modular Lock Glenoid Peripheral Screw Ar-9563-40 - [id number] Implanted:Qty: 1 on 12/05/2021 by Mike Zaragoza MD at [facility] [employer] C1713 08/20/2023 AR-9563-40 / / [id number] Ar[employer]rex Inc 5.5mm 24mm Lock Modular Glenoid Screw Bone Ar-9563-24 - [id number] Implanted:Qty: 1 on 12/05/2021 by Mike Zaragoza MD at [facility] [employer] C1713 07/20/2026 AR-9563-24 / / [id number] Procedures Procedure Name Priority Date/Time Associated Diagnosis [...] GENERAL O RDERABLES Final Result [facility] [id number] Department [place] [address] from Last 3 Months or Most Recently Relevant to Health Maintenance Insurance [address] [place] [address] [employer] CHOICE MEDICARE PPO DR [address] [place] [id number] [employer] [employer] CHO[employer] MEDICARE PPO DR [id number] [place] [phone] Advance Directives For more information, please contact: [phone] * Full Code (Latest Code Status on File) Date Activated Date Inactivated Comments 12/05/2021 11:07 AM 12/05/2021 6:01 PM * Full Code Date Activated Date Inactivated Comments 06/01/2019 1:56 PM 06/02/2019 7:34 PM Care Teams Informatics Educator Relationship Specialty Start Date End Date Elizabeth Abel MD PCP - General Family Practice 03/27/22 Ray Antonio MD Surgeon Orthopedic Surgery 06/02/19 Maribell Robles PA Physician Intramural Director Orthopedic Surgery 12/05/21
--- OUTSIDE RECORDS SUMMARY | 2024-08-20 14:34 | XMS_ITS | Clinical Summary ---
Author Organization [facility] [address] Address [address] [place] [address] Care Team Providers Care Frame Assembler Name Role Phone Ray Antonio MD Unavailable Maribell Robles Unavailable [phone] Elizabeth Abel MD Primary Care Provider [phone] Allergies Active Allergy Reactions Criticality Noted Date [...] Due: Up-to-date. Will request colonoscopy results from [facility] Dietary and exercise recommendations given [...] months Assessment & Plan (03/27/2022 12:39 PM SEAMER ELASTIC BAND): Chronic and stable. PHQ 9 score is [...] months Assessment & Plan (03/27/2022 12:39 PM SEAMER ELASTIC BAND): Chronic and stable. Continue current medication (gabapentin). Prediabetes 03/27/2022 Assessment & Plan (02/13/2023 3:13 PM CDT): Chronic and stable. Will repeat labs 03/2023 to monitor for changes off Victoza. Patient was previously taking medication for weight loss Assessment & Plan (07/13/2022 4:14 PM CDT): Chronic and stable. Continue current medication. Labs ordered today. Follow-up 3 months Assessment & Plan (03/27/2022 12:39 PM SEAMER ELASTIC BAND): Chronic and stable. Continue current medication. Will request lab results from previous PCP. Follow-up 3 months at well visit Gastroesophageal reflux disease 03/27/2022 Assessment & Plan (04/25/2023 3:58 PM SEAMER ELASTIC BAND): History of hiatal hernia. Chronic and stable. Continue current medication. Will monitor Assessment & Plan (03/27/2022 12:40 PM SEAMER ELASTIC BAND): Chronic. History of hiatal hernia. Chronic and stable. Continue current medication. Will monitor Feared condition not demonstrated 03/27/2022 Assessment & Plan (03/27/2022 12:43 PM SEAMER ELASTIC BAND): Concern for memory loss. Mini cog completed [...] (11/16/2021): Added automatically from request for surgery [id number] Aftercare following left knee joint replacement surgery 07/21/2019 Primary osteoarthritis of left knee 05/15/2019 Overview (05/15/2019): Added automatically from request for surgery [id number] Abnormal stress test 01/16/2017 Exertional dyspnea 01/16/2017 Class 3 severe obesity due t o excess calories with serious comorbidity and body mass index (BMI) of 40.0 to 44.9 in adult 12/25/2016 Assessment & Plan (04/25/2023 3:57 PM SEAMER ELASTIC BAND): BMI:42 (Obese) Dietary and exercise recommendations reiterated [...] weeks Assessment & Plan (03/27/2022 12:37 PM SEAMER ELASTIC BAND): Doing well. BMI:38.05 (Obese) Dietary and exercise [...] diet. Assessment & Plan (04/25/2023 3:54 PM SEAMER ELASTIC BAND): Chronic and elevated. Goal < 130/80 Continue [...] medication Assessment & Plan (03/27/2022 12:32 PM SEAMER ELASTIC BAND): Chronic and stable. Minimally above goal <130/80 off medication. Will Continue to monitor Resolved Problems Problem Noted Date Diagnosed Date Resolved Date Biceps tendonitis on left 11/16/2021 Overview (11/16/2021): Added automatically from request for surgery [id number] Immunizations Immunization Administration Dates Next Due Influenza, Quadrivalent, Spl it, Preservative Free, Intramuscular 02/13/2023,03/27/2022,01/17/2021,01/20,01/20/2019 Surgical History Surgery Date Site/Laterality Comments CHOLECYSTECTOMY Cholecystectomy SECTION SPINE SURGERY lida in back to help with scoliosis JOINT REPLACEMENT Bilateral patient had both knees replaced CARPAL TUNNEL RELEASE Bilateral TRIGGER FINGER RELEASE Left Medical History Medical History Date Comments Hx Other Medical obesity; Commen ts: [facility] 02/17/2014 - Hypertension Hypertension Hx Other Medical dyslipidemia; C omments: [facility] 02/17/2014 - Hx Other Medical osteoarthritis; Comments: [facility] 02/17/2014 - Hx Other Medical scoliosis; Comm ents: [facility] 02/17/2014 - Hx Other Medical anxiety/depress ion; Comments: [facility] 02/17/2014 - Hx Other Medical ; Comm ents: [facility] 02/17/2014 - Hx Other Medical back surgery; C omments: [facility] 02/17/2014 - Hiatal hernia Sleep apnea Motion [...] on file Legal Sex Female 7:45 PM SEAMER ELASTIC BAND Gender Identity Not on file Sexual Orientation [...] Body Mass Index 39.68 04/25/2023 3:22 PM SEAMER ELASTIC BAND Plan of Treatment Health Maintenance Due Date Last Done Comments Cervical Cancer Screening 1960 DTaP/Tdap/Td Vaccine (1 - Tdap) 02/13/1971 Hepatitis B Screening 02/13/1978 Zoster Vaccine (1 of 2) 02/13/2010 Depression Screening 07/14/2023 07/13/2022, 03/27/2022, 05/15/2019 Regular Well Visit/Exam 18-64 07/14/2023 07/13/2022, 03/27/2022 Breast Cancer Screening-Mammogram 09/13/2023 Covid-19 Vaccine ( - season) 2023 11/02/2020, 10/12/2020 Influenza Vaccine (Season Ended) 2024 02/13/2023, 03/27/2022, 01/17/2021, Additional history exists Colon Cancer Screening-Colonoscopy 01/06/2025 Hepatitis C Screening Completed 07/18/2022 Pneumococcal vaccine <65 Aged Out No longer eligible based on patient's age to complete this topic Medical Devices Implanted Type Area Layboy Tender Device Identifier Shelf Expiration Date Model / Serial / Lot DepCrossfader Orthopaedics Inc [id number] Attune Cemented Posterior Stabilize Knee Left 4 Component Femoral - [id number] Implanted:Qty: 1 on 06/01/2019 by Ray Antonio MD at [facility] Left: Knee Depuy Orthopaedics Inc 04/21/2029 [id number] / / [id number] Depuy Orthopaedics Inc [id number] Attune S+ Cement Fix Bearing Knee 4 Baseplate Tibial - [id number] Implanted:Qty: 1 on 06/01/2019 by Ray Antonio MD at [facility] Left: Knee Depuy Orthopaedics Inc 02/19/2029 [id number] / / [id number] [employer] 6195-1-001 Cement Bone Simplex Gentamicin High Viscosity 40gm - [id number] Implanted:Qty: 1 on 06/01/2019 by Ray Antonio MD at [facility] Left: Knee [employer] 11/19/2020 6195-1-001 / / [id number] [employer] 6195-1-001 Cement Bone Simplex Gentamicin High Viscosity 40gm - [id number] Implanted:Qty: 1 on 06/01/2019 by Ray Antonio MD at [facility] Left: Knee [employer] 11/19/2020 6195-1-001 / / [id number] Depuy Orthopaedics Inc [id number] Attune 8mm Posterior Stabilize Fix Bearing Knee 4 Insert Tibial - [id number] Implanted:Qty: 1 on 06/01/2019 by Ray Antonio MD at [facility] Left: Knee Depuy Orthopaedics Inc 02/20/2024 [id number] / / [id number] Ar[employer] Inc [place] Revers Biosync 39mm 24mm Glenosphere Taper Baseplate Ur-8570-8047 - [id number] Implanted:Qty: 1 on 12/05/2021 by Mike Zaragoza MD at [facility] [employer] C1776 07/20/2025 TX-4788-3495 / / [id number] Ar[employer]rex Inc Cup Humeral [place] Revers +2 Od36mm Shoulder Left Suture Ab-5886r-88klgc - [id number] Implanted:Qty: 1 on 12/05/2021 by Mike Zaragoza MD at [facility] [employer] [id number] 11/19/2024 AR-9502F- 36L CASH CONTROLLER / / [id number] Ar[employer]rex Inc Insert Humeral Combo Reverse Poly [place] Revers +3x36mm Pl-0958-8576-3 - [id number] Implanted:Qty: 1 on 12/05/2021 by Mike Zaragoza MD at [facility] [employer] 10/19/2024 EU-9606-8026 -3 / / [id number] Ar[employer]rex Inc [place] Revers Shoulder 6 Stem Humeral Sterile Ar-9501-06s - [id number] Implanted:Qty: 1 on 12/05/2021 by Mike Zaragoza MD at [facility] [employer] C1776 02/19/2026 AR-9501-06S / / [id number] Ar[employer] Inc Baseplate 24mm 10 Deg Full Augment Oblique Bf-3233-5513 - [id number] Implanted:Qty: 1 on 12/05/2021 by Mike Zaragoza MD at [facility] [employer] C1776 05/22/2025 GA-4322-5237 / / [id number] Ar[employer] Inc [place] Revers 20mm Modular Post Component Glenoid Porous Ar-9582-20 - [id number] Implanted:Qty: 1 on 12/05/2021 by Mike Zaragoza MD at [facility] [employer] C1776 11/19/2025 AR-9582-20 / / [id number] Ar[employer] Inc [place] Revers 5.5mm 40mm Modular Lock Glenoid Peripheral Screw Ar-9563-40 - [id number] Implanted:Qty: 1 on 12/05/2021 by Mike Zaragoza MD at [facility] [employer] C1713 08/20/2023 AR-9563-40 / / [id number] Ar[employer]rex Inc 5.5mm 24mm Lock Modular Glenoid Screw Bone Ar-9563-24 - [id number] Implanted:Qty: 1 on 12/05/2021 by Mike Zaragoza MD at [facility] [employer] C1713 07/20/2026 AR-9563-24 / / [id number] Procedures Procedure Name Priority Date/Time Associated Diagnosis [...] GENERAL O RDERABLES Final Result [facility] [id number] Department [place] [address] from Last 3 Months or Most Recently Relevant to Health Maintenance Insurance [address] [place] [address] [place] [address] HU[employer] CHOICE MEDICARE PPO DR [address] [place], [place] [address] [employer] [employer] CHOICE MEDICARE PPO [address] [place] [address] [address] [place] [phone] Advance Directives For more information, please contact: [phone] * Full Code (Latest Code Status on File) Date Activated Date Inactivated Comments 12/05/2021 11:07 AM 12/05/2021 6:01 PM * Full Code Date Activated Date Inactivated Comments 06/01/2019 1:56 PM 06/02/2019 7:34 PM Care Teams Frame Assembler Relationship Specialty Start Date End Date Elizabeth Abel MD PCP - General Family Practice 03/27/22 Ray Antonio MD Surgeon Orthopedic Surgery 06/02/19 Maribell Robles PA Physician Regional Sales Engineer Orthopedic Surgery 12/05/21
--- OUTSIDE RECORDS SUMMARY | 2024-08-20 14:34 | XMS_ITS | Encounter Summary ---
Author Organization [facility] Address [address] [place] [address] Phone Care Team Providers Care Development And Housing Director Name Role Phone Marlene Cary MD Primary Care Provider + Alicia Rome MD Primary Care Provide r Chelsie Myrick NP Primary Care Provider Ray Antonio MD Unavailable [phone] Maribell Robles Unavailable Elizabeth Abel MD Primary Care Provider Encounter Details Date Type Department Care Team (Late st Contact Info) Description 12/27/2014 Orders Only [facility] [address] [place] [address] Scanning, Provider Social History Tobacco Use Types Packs/Day Years Used Date Smoking Tobacco: Former Cigarettes Q uit: 04/22/1976 Alcohol Use Standard Drinks/Week Comments No 0 (1 standard drink = 0.6 oz pur e alcohol) Comments Unknown Sex and Gender Information Value Date Recorded Sex Assigned at Not on file Legal Sex Female 7:45 PM SHIP RIGGER Gender Identity Not on file Sexual Orientation [...] documented as of this encounter Care Teams Development And Housing Director Relationship Specialty Start Date End Date Marlene Cary MD [address] [place] [address] PCP - General 02/17/14 01/15/17 Alicia Rome MD [address] [place] [address] PCP - General Family Medicine 01/16/17 05/05/19 Chelsie Myrick NP [address] [place] [address] PCP - General Nurse Practitioner 05/06/19 03/26/22 Elizabeth Abel MD [address] [place] [address] PCP - General Family Practice 03/27/22 Ray Antonio MD [address] [place] [address] Surgeon Orthopedic Surgery 06/02/19 Maribell Robles PA [address] [place] [address] Physician Applications Coordinator Orthopedic Surgery 12/05/21 documented as of this encounter
--- OUTSIDE RECORDS SUMMARY | 2024-08-20 14:34 | XMS_ITS | Clinical Summary ---
Author Organization [facility] Address [address] [address] Phone Care Team Providers Care Residential Pest Control Technician Name Role Phone Chelsie Myrick MILLY Primary Care Provider [phone] Allergies Active Allergy Reactions Criticality Noted Date [...] Visit [facility] - Neurology [facility] [address] [place] [id number] Luis Antonio Child MD [address] [place] [phone] Health Maintenance Due Date Last Done Comments [...] patient's age to complete this topic Insurance [facility] Care Teams Residential Pest Control Technician Relationship Specialty Start Date End Date Chelsie Myrick APRN [address] [place] [address] PCP - General Advanced Practice Nurse 07/02/24
--- OUTSIDE RECORDS SUMMARY | 2024-08-20 14:34 | XMS_ITS | Encounter Summary ---
Author Organization [facility] Facility Care Team Providers Care Dental Services Director Name Role Phone Marlene Cary MD Primary Care Provider + Alicia Rome MD Primary Care Provide r Chelsie Myrick NP Primary Care Provider [phone] Ray Antonio MD Unavailable [phone] Maribell Robles Unavailable [phone] Elizabeth Abel MD Primary Care Provider [phone] Encounter Details Date Type Department Care Team (Latest Contact Info) Description 12/01/2016 Orders Only [facility] ProviderRadha MD [address] [place] [address] Social History Tobacco Use Types Packs/Day Years Used Date Smoking Tobacco: Former Cigarettes Q uit: 04/22/1976 Alcohol Use Standard Drinks/Week Comments No 0 (1 standard drink = 0.6 oz pur e alcohol) Comments Unknown Sex and Gender Information Value Date Recorded Sex Assigned at Not on file Legal Sex Female 7:45 PM ACCOUNTS RECEIVABLE CLERK Gender Identity Not on file Sexual Orientation [...] documented as of this encounter Care Teams Dental Services Director Relationship Specialty Start Date End Date Marlene Cary MD [address] [place] [address] PCP - General 02/17/14 01/15/17 Alicia Rome MD [address] [place] [address] PCP - General Family Medicine 01/16/17 05/05/19 Chelsie Myrick NP [address] [place] [address] PCP - General Nurse Practitioner 05/06/19 03/26/22 Elizabeth Abel MD [address] [place] [address] PCP - General Family Practice 03/27/22 Ray Antonio MD [address] [place] [address] Surgeon Orthopedic Surgery 06/02/19 Maribell Robles PA [address] [facility] [address] [place] [address] Physician Draw Press Operator Orthopedic Surgery 12/05/21 documented as of this encounter
--- OUTSIDE RECORDS SUMMARY | 2024-08-20 14:34 | XMS_ITS | Encounter Summary ---
Author Organization [facility] Facility Care Team Providers Care Concrete Batcher Name Role Phone Alicia Roem MD Primary Care Provide r Chelsie Myrick NP Primary Care Provider [phone] Ray Antonio MD Unavailable [phone] Maribell Robles Unavailable [phone] Elizabeth Abel MD Primary Care Provider [phone] Encounter Details Date Type Department Care Team (Latest Contact Info) Description 12/31/2017 Orders Only [facility] Provider, MD Radha [address] [place] [address] Social History Tobacco Use Types Packs/Day Years Used Date Smoking Tobacco: Former Smokeless Tobacco: Never Alcohol Use Standard Drinks/Week Comments No 0 (1 standard drink = 0.6 oz pur e alcohol) Comments Unknown Sex and Gender Information Value Date Recorded Sex Assigned at Not on file Legal Sex Female 7:45 PM CHIEF DESIGN BRANCH Gender Identity Not on file Sexual Orientation [...] documented as of this encounter Care Teams Concrete Batcher Relationship Specialty Start Date End Date Alicia Rome MD [address] [place] [address] PCP - General Family Medicine 01/16/17 05/05/19 Chelsie Myrick NP [address] [place] [address] PCP - General Nurse Practitioner 05/06/19 03/26/22 Elizabeth Abel MD [address] [place] [address] PCP - General Family Practice 03/27/22 Ray Antonio MD [address] [place] [address] Surgeon Orthopedic Surgery 06/02/19 Maribell Robles PA [address] [place] [address] Physician Dock Coordinator Orthopedic Surgery 12/05/21 documented as of this encounter
--- OUTSIDE RECORDS SUMMARY | 2024-08-20 14:34 | XMS_ITS | Encounter Summary ---
Author Organization [facility] Facility Care Team Providers Care Melt Down Furnace Operator Name Role Phone Alicia Rome MD Primary Care Provide r Chelsie Myrick NP Primary Care Provider [phone] Ray Antonio MD Unavailable [phone] Maribell Robles Unavailable [phone] Elizabeth Abel MD Primary Care Provider [phone] Encounter Details Date Type Department Care Team (Latest Contact Info) Description 03/21/2018 Orders Only [facility] Provider, MD Radha [address] [place] [address] Social History Tobacco Use Types Packs/Day Years Used Date Smoking Tobacco: Former Smokeless Tobacco: Never Alcohol Use Standard Drinks/Week Comments No 0 (1 standard drink = 0.6 oz pur e alcohol) Comments Unknown Sex and Gender Information Value Date Recorded Sex Assigned at Not on file 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 us Historical [...] documented as of this encounter Care Teams Melt Down Furnace Operator Relationship Specialty Start Date End Date Alicia Rome MD [address] [place] [address] PCP - General Family Medicine 01/16/17 05/05/19 Chelsie Myrick NP [address] [place] [address] PCP - General Nurse Practitioner 05/06/19 03/26/22 Elizabeth Abel MD [address] [place] [address] PCP - General Family Practice 03/27/22 Ray Antonio MD [address] [place] [address] Surgeon Orthopedic Surgery 06/02/19 Maribell Robles PA [address] [place] [address] Physician Policy Change Clerks Supervisor Orthopedic Surgery 12/05/21 documented as of this encounter
--- OUTSIDE RECORDS SUMMARY | 2024-08-20 14:35 | XMS_ITS | Encounter Summary ---
Author Organization [facility] Facility Care Team Providers Care Online Communications Manager Name Role Phone Alicia Rome MD Primary Care Provide r Chelsie Myrick NP Primary Care Provider [phone] Ray Antonio MD Unavailable [phone] Maribell Robles Unavailable [phone] Elizabeth Abel MD Primary Care Provider [phone] Encounter Details Date Type Department Care Team (Latest Contact Info) Description 08/29/2017 Orders Only [facility] Provider, MD Radha [address] [place] [address] Social History Tobacco Use Types Packs/Day Years Used Date Smoking Tobacco: Former Smokeless Tobacco: Never Alcohol Use Standard Drinks/Week Comments No 0 (1 standard drink = 0.6 oz pur e alcohol) Comments Unknown Sex and Gender Information Value Date Recorded Sex Assigned at Not on file 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 [facility] Provider MD Final Res ult * SCAN - LABS (09/05/2017 12:00 AM CDT) Narrative 09/05/2017 12:00 AM CDT Ordered by an unspecified provider. [facility] Provider Final Res ult * SCAN - LABS (09/03/2017 12:00 AM CDT) Narrative 09/03/2017 12:00 AM CDT Ordered by an unspecified provider. [facility] Provider Final Res ult * SCAN - LABS (09/03/2017 12:00 AM CDT) Narrative 09/03/2017 12:00 AM CDT Ordered by an unspecified provider. [facility] Provider Final Res ult * SCAN - LABS (09/03/2017 12:00 AM CDT) Narrative 09/03/2017 12:00 AM CDT Ordered by an unspecified provider. [facility] Provider Final Res ult documented in this encounter Visit Diagnoses Not on filedocumented in this encounter Additional Health Concerns Infection Onset Date Last Indicated Resolved Time COVID: Suspected 10/02/2022 10/02/2022 10/02/2022 4:04 PM CDT COVID19 10/02/2022 10/02/2022 10/12/2022 3:06 AM CDT COVID: Recovered Comment:Added based on recent COVID infection. 10/12/2022 10/16/2022 01/10/2023 3:05 AM C DT documented as of this encounter Care Teams Online Communications Manager Relationship Specialty Start Date End Date Alicia Rome MD [address] [place] [address] PCP - General Family Medicine 01/16/17 05/05/19 Chelsie Myrick NP [address] [place] [address] PCP - General Nurse Practitioner 05/06/19 03/26/22 Elizabeth Abel MD [address] [place] [address] PCP - General Family Practice 03/27/22 Ray Antonio MD [address] [place] [address] Surgeon Orthopedic Surgery 06/02/19 Maribell Robles PA [address] [place] [address] Physician District Loss Prevention Manager Orthopedic Surgery 12/05/21 documented as of this encounter
[2024-08-20 20:33] LABS: Alanine Aminotransferase 32 U/L (6-35); Albumin Level 4.6 g/dL (3.5-5.1); Alkaline Phosphatase 87 U/L (38-126); Anion Gap 9 mmol/L (4-12); Aspartate Amino Transferase 57 U/L (14-36); Bilirubin,Total 0.7 mg/dL (0.2-1.3); Blood Urea Nitrogen 22 mg/dL (7-17); Calcium 9.4 mg/dL (8.4-10.2); Carbon Dioxide 27 mmol/L (22-30); Chloride 102 mmol/L (98-107); Cholesterol 267 mg/dL (0-200); Estimated Glomerular Filt Rate > 60; Glucose 96 mg/dL (65-110); HDL Direct 50 mg/dL; Potassium 3.9 mmol/L (3.4-5.0); Sodium 138 mmol/L (137-145); Triglycerides 211 mg/dL (<150)
[2024-08-20 20:45] LABS: LDL Cholesterol Direct 150 mg/dL
[2024-08-20 22:16] LABS: Creatinine Urine 162.6 mg/dL
[2024-08-20 22:25] LABS: Microalbumin Urine Random 9.7 mg/L (0-16.7)
== END 2024-08-20 13:48 | disposition home or self-care (01) ==
LOC: ANHBWCLAB 13:48
PROVIDERS: PCP Nurse Practitioner Adult Health; Visit Provider Nurse Practitioner Adult Health
DX: E78.5 Hyperlipidemia, unspecified (principal); E11.9 Type 2 diabetes mellitus without complications; E53.8 Deficiency of other specified B group vitamins
CPT/HCPCS: 36415; 80053; 80061; 82043; 82565; 82607; 83036

== ENCOUNTER 2024-10-20 12:30 | Outpatient (RCR) | payer MEDICARE, MEDICAID, SELFPAY ==
--- NOTE | 2024-09-25 13:36 | OPREHPOC ---
Outpatient Therapy Plan of Care This is a Multidisciplinary Plan of Care that may contain components documented by all disciplines (PT, OT, and ST.) PT Problem 1 PT Problem #1 Knowledge Deficit PT Goal 1 Goal / Goal Update 1. Patient to demonstrate independence with home exercise program for improved self-reliance of symptom management. Target Visit 8 PT Problem 2 PT Problem #2 Impaired Functional Mobility PT Goal 1 Goal / Goal Update 1. Patient to improve outcome measure score on NDI by 10 points or greater to show improvements in functional extremity use. Target Visit 8 PT Problem 3 PT Problem #3 Impaired Range of Motion PT Goal 1 Goal / Goal Update 1. Patient to demonstrate an increase of cervical rotation active range of motion to 50 degrees [place] to improve safety with driving. 2. Patient to demonstrate increase in cervical extension to 30 degrees without pain provocation Target Visit 8
--- NOTE | 2024-09-25 13:37 | PTOPEVAL1 ---
Assessment and note entered by Swapnil Vitale PT Evaluation Information Assessment Status Evaluation Diagnosis Neck painj ICD-10 Condition Codes (PT) Cervicalgia M54.2 Onset Chronic Subjective Information Pt reports chronic history of neck pain and has been treated by Physical therapy previously with moderate successful. Pt reports recent increase in intensity of neck pain and was prescribed meloxicam and feels her neck pain has slightly improved. Pt reports difficulties with cervical rotation and looking up affecting her ability to perform daily activities. Pt notes increased in activity because she is renovating a home with her and states her neck is flared up. Reported Pain Level Pain Score 4: Self Report Assessment PT Clinical Summary Patient presents to physical therapy with a primary issue of chronic neck pain. Patient demonstrates scapular weakness, pain, decreased neck mobility, abnormal posture, that limit their ability to perform activities of daily living and functional movements. Patient will benefit from skilled physical therapy to address the above listed deficits and return to prior level of function. Home exercise program instructed and written handout provided, exercises tolerated well with no adverse effects to note post-session. Patient was also educated on anatomy, prognosis, home modalities, and plan of care Plan of Care Interventions Electrical Stimulation,Gait Training,Hot Pack/Cold Pack,Manual Therapy,Mechanical Traction,Neuro Re- education,Patient/Caregiver Education,Therapeutic Activities,Therapeutic Exercise,Self-Care/Home Management,Other PT Services Indicated Yes These treatments will address the objective and functional deficits as defined above. The patient will be advanced safely and appropriately in order for the patient to progress towards his/her prior level of function. Additional exercises will be introduced and as well as a comprehensive home exercise program upon discharge, if needed, ?to ensure carryover of functional gains achieved in the clinic. This treatment plan has been reviewed and agreement upon by the patient.
--- NOTE | 2024-10-20 13:21 | PTOPDC ---
Assessment and note entered by Swapnil Vitale PT Evaluation Information Assessment Status Discharge Diagnosis Neck pain ICD-10 Condition Codes (PT) Cervicalgia M54.2 Onset Chronic Subjective Information Pt reports she feels 80% better overall. She notes she still has localized left sided neck pain and is primarily provoked by increased activity. Pt states she is confident in her home exercise program. Reported Pain Level Pain Score 2: Self Report Assessment PT Clinical Summary Patient's neck pain has improved overall as evidenced by advancements in symptoms, mobility, strength, and overall functional use of the extremity. Patient has met therapy goals and is pleased with progress made towards the remaining goals. Patient to discharge from physical therapy this date and continue with updated home exercise program as instructed. Patient to contact physical therapist or primary care provider if questions or concerns arise. Plan of Care PT Services Indicated No
== END 2024-10-20 14:29 | disposition home or self-care (01) ==
LOC: ANHGOSHPT 12:30
PROVIDERS: PCP Nurse Practitioner Adult Health; Visit Provider Nurse Practitioner Adult Health
DX: M54.2 Cervicalgia (principal)
CPT/HCPCS: 97110; 97112; 97140; 97161

== ENCOUNTER 2025-02-23 12:30 | Outpatient (RCR) | payer MEDICARE, SELFPAY ==
--- NOTE | 2025-01-07 09:53 | OPREHPOC ---
Outpatient Therapy Plan of Care This is a Multidisciplinary Plan of Care that may contain components documented by all disciplines (PT, OT, and ST.) PT Problem 1 PT Problem #1 Knowledge Deficit PT Goal 1 Goal / Goal Update Patient to demonstrate independence with HEP for improved self-reliance of symptom management. Target Visit 4 PT Problem 2 PT Problem #2 Pain PT Goal 1 Goal / Goal Update 1. Patient to decrease subjective reports of pain to <5/10 for 2 consecutive weeks for improved ADL tolerance. 2. Patient to report 25% improvement in quantity and quality of sleep. 3. Patient to report increased sitting tolerance to >15 minutes with minimal reports of pain to improve endurance required for travel. Target Visit 8 PT Problem 3 PT Problem #3 Impaired Strength PT Goal 1 Goal / Goal Update Patient to report no pain reproduction with MMT and test 4/5 L knee flexion and hip extension. Target Visit 8 PT Problem 4 PT Problem #4 Impaired Range of Motion PT Goal 1 Goal / Goal Update Pt to demonstrate an increase of L hip combined AROM of WFL to improve LE dressing. Target Visit 8
--- NOTE | 2025-01-07 09:54 | PTOPEVAL1 ---
Assessment and note entered by Bettina Myles, PT Evaluation Information Assessment Status Evaluation Subjective Information Primary Complaint: L hip Pain History of current condition: Pt reports symptoms started in September when she was helping move a mattress. She was trying to take a step up as she pulled. She felt a pull in the back of her hip and just tried to let it get better on its own. She was given a steroid pack but only did half of it since she had to stop taking her Meloxicam. she wanted to take that instead because she needs it for her hip arthritis. Sxs made worse with: stairs, squatting, lifting her knee up to wash her feet, L LE dressing, laying on her L side Sxs improved with: ice, heat, laying flat on her back CLOF: avoiding going up the stairs with her L side first, decreased sitting/walking tolerance, PLOF: generally sedentary but I with all ADLs Reported Pain Level Pain Score 5: Self Report Additional Pain Score Comments subjective reports due not correspond with physical pain characteristics Assessment PT Clinical Summary Pt is a 64 year old female who presents to physical therapy with a primary complaint of L hip pain since September. Pt demonstrates weakness, decreased sitting and walking tolerance, impaired L LE dressing, pain with active hamstring mobility , decreased mobility, gait deficit, and decreased flexibility that limit their ability to perform ADLs. Pt will benefit from skilled physical therapy to address the above listed deficits and return to PLOF. HEP instructed and written handout provided, EX tolerated well with no adverse effects to note post-session. Pt was educated on importance of adherence to HEP. Pt was also educated on anatomy, prognosis, home modalities, and PT POC. Plan of Care Interventions Aquatic Therapy,Electrical Stimulation,Gait Training,Hot Pack/Cold Pack,Manual Therapy,Neuro Re-education,Patient/Caregiver Education, Therapeutic Activities,Therapeutic Exercise,Self- Care/Home Management,Ultrasound Other Interventions cupping, dry needling, taping PT Services Indicated Yes Treatment Frequency and 1-2x/wk for 8 session Duration These treatments will address the objective and functional deficits as defined above. The patient will be advanced safely and appropriately in order for the patient to progress towards his/her prior level of function. Additional exercises will be introduced and as well as a comprehensive home exercise program upon discharge, if needed, ?to ensure carryover of functional gains achieved in the clinic. This treatment plan has been reviewed and agreement upon by the patient.
--- NOTE | 2025-02-23 13:27 | PTOPDC ---
Assessment and note entered by Swapnil Vitale PT Evaluation Information Assessment Status Discharge ICD-10 Condition Codes (PT) Pain in left hip M25.552 Subjective Information Pt reports she is doing much better. She notes she even feels better than prior to the injury as she feels slightly stronger and more flexible. She no longer has pain and is not limiting herself with any activities. Reported Pain Level Pain Score 0: Self Report Assessment PT Clinical Summary Patient's L leg has improved overall as evidenced by advancements in symptoms, mobility, strength, and overall functional use of the extremity. Patient has met therapy goals and is pleased with progress made towards the remaining goals. Patient to discharge from physical therapy this date and continue with updated home exercise program as instructed. Patient to contact physical therapist or primary care provider if questions or concerns arise. Plan of Care PT Services Indicated No
== END 2025-02-23 16:11 | disposition home or self-care (01) ==
LOC: ANHGOSHPT 12:30
PROVIDERS: PCP Nurse Practitioner Adult Health; Visit Provider Nurse Practitioner Adult Health
DX: S76.002D Unspecified injury of muscle, fascia and tendon of left hip, subsequent encounter (principal); M25.552 Pain in left hip
CPT/HCPCS: 97110; 97112; 97140; 97161; 97530

== ENCOUNTER 2025-03-03 09:58 | Outpatient (CLI) | payer MEDICARE, SELFPAY ==
[2025-03-03 19:12] LABS: Alanine Aminotransferase 36 U/L (6-35); Albumin Level 4.7 g/dL (3.5-5.1); Alkaline Phosphatase 83 U/L (38-126); Anion Gap 8 mmol/L (4-12); Aspartate Amino Transferase 80 U/L (14-36); Bilirubin,Total 0.7 mg/dL (0.2-1.3); Blood Urea Nitrogen 18 mg/dL (7-17); Calcium 9.3 mg/dL (8.4-10.2); Carbon Dioxide 29 mmol/L (22-30); Chloride 101 mmol/L (98-107); Cholesterol 210 mg/dL (0-200); Estimated Glomerular Filt Rate 58; Glucose 101 mg/dL (65-110); HDL Direct 48 mg/dL; Potassium 3.7 mmol/L (3.4-5.0); Sodium 138 mmol/L (137-145); Total Protein 8.1 g/dL (6.3-8.2); Triglycerides 199 mg/dL (<150)
[2025-03-03 19:38] LABS: Hemoglobin A1C 6.1 % (<5.7)
[2025-03-03 20:06] LABS: Vitamin B12 931.0 pg/mL (239-931)
[2025-03-03 20:07] LABS: MALB Creatinine Ratio 16.6 mg/g (0-30)
== END 2025-03-03 09:59 | disposition home or self-care (01) ==
PROVIDERS: PCP Nurse Practitioner Adult Health; Visit Provider Nurse Practitioner Adult Health
DX: E78.5 Hyperlipidemia, unspecified (principal); E11.9 Type 2 diabetes mellitus without complications; E53.8 Deficiency of other specified B group vitamins; E55.9 Vitamin D deficiency, unspecified
CPT/HCPCS: 36415; 80053; 80061; 82043; 82306; 82565; 82607; 83036